=== PATIENT | female | born 1960 | race Caucasian/White ===

== ENCOUNTER 2020-06-09 11:07 | Outpatient (REF) | payer OTHER, SELFPAY ==
[2020-06-09 12:32] LABS: Vitamin D 25-OH Total 36.6 ng/mL (>30)
== END 2020-06-09 11:08 | disposition home or self-care (01) ==
LOC: HO.LAB 11:07
PROVIDERS: PCP Internal Medicine; Visit Provider Student in an Organized Health Care Education/Training Program
DX: M81.0 Age-related osteoporosis without current pathological fracture (principal)
CPT/HCPCS: 82306

== ENCOUNTER → 2020-06-26 08:33 | Outpatient (BNVA) | payer OTHER, SELFPAY | PROVIDERS: PCP Internal Medicine; Referring Provider Internal Medicine; Visit Provider Student in an Organized Health Care Education/Training Program | DX: Z76.89 Persons encountering health services in other specified circumstances (principal) ==

== ENCOUNTER → 2020-07-06 14:26 | Outpatient (BNVA) | payer OTHER, SELFPAY | PROVIDERS: Visit Provider Urology | DX: Z76.89 Persons encountering health services in other specified circumstances (principal) ==

== ENCOUNTER 2020-10-01 07:49 | Outpatient (REF) | payer BC, OTHER, SELFPAY ==
--- NOTE | 2020-10-01 07:53 | EMG_ITS ---
Bilateral tibial and peroneal tibial and peroneal motor studies were performed. Bilateral sural studies were performed and superficial peroneal studies were performed. Paraspinal muscles were tested with a needle including some limb muscles. IMPRESSION: [id number] chronic axonal sensory motor peripheral neuropathy. MD COLIN Johnson/OMAR / [id number]
== END 2020-10-01 07:50 | disposition home or self-care (01) ==
LOC: HO.NEURO 07:49
PROVIDERS: Visit Provider Internal Medicine
DX: G62.9 Polyneuropathy, unspecified (principal)
CPT/HCPCS: 95861; 95886; 95911

== ENCOUNTER 2020-10-12 06:07 | Outpatient (REF) | payer BC, OTHER, SELFPAY ==
[2020-10-12 07:21] LABS: MANUAL DIFF FLAG NO
[2020-10-12 07:30] LABS: Basophils Absolute Auto 0.1 X10*3/uL (0.0-0.2); Basophils Percent Auto 0.9 % (0-2); Eosinophils Absolute Auto 0.4 X10*3/uL (0.0-0.4); Eosinophils Percent Auto 7.3 % (0-4); Hematocrit 47.3 % (37-47); Hemoglobin 15.6 g/dl (12.0-16.0); Imm Gran Abs Auto 0.02 X10*3/uL (0.00-0.03); Imm Gran Pct Auto 0.4 % (0.0-0.4); Lymphocytes Absolute Auto 1.8 X10*3/uL (1.2-4.9); Lymphocytes Percent Auto 33.5 % (20-40); Mean Corpuscular Hemoglobin 29.9 pg (27.0-33.0); Mean Corpuscular Volume 90.8 fL (80-98); Mean Platelet Volume 10.3 fL (9.4-12.3); Monocytes Absolute Auto 0.4 X10*3/uL (0.1-1.2); Monocytes Percent Auto 7.9 % (2-11); Neutrophils Absolute Auto 2.7 X10*3/uL (2.0-8.3); Platelet Count 329 X10*3/uL (160-400); Red Blood Count 5.21 X10*6/uL (4.20-5.50); White Blood Count 5.3 X10*3/uL (4.8-10.8)
[2020-10-12 07:34] LABS: Estimated Average Glucose 97 mg/dL
[2020-10-12 07:50] LABS: Alanine Aminotransferase 25 U/L (0-31); Albumin Level 4.5 g/dL (3.5-5.0); Alkaline Phosphatase 38 U/L (39-117); Anion Gap 11 (12-20); Aspartate Amino Transferase 26 U/L (5-31); Bilirubin Total 0.7 mg/dL (0.0-1.0); Blood Urea Nitrogen 19 mg/dL (9-16); Calcium 9.2 mg/dL (8.4-10.2); Carbon Dioxide 29 mmol/L (22-29); Chloride 108 mmol/L (96-108); Cholesterol 202 mg/dL; Estimated Glomerular Filt Rate > 60; Glucose Random 83 mg/dL (60-115); HDL Cholesterol 88 mg/dL; LDL Cholesterol Calculated 105 mg/dl; Potassium 4.5 mmol/L (3.3-5.1); Sodium 143 mmol/L (135-145); Total Protein 6.9 g/dL (6.5-8.0); Triglycerides 46 mg/dL
[2020-10-12 08:07] LABS: Free T4 (Free Thyroxine) 0.75 ng/dL (0.71-1.85); Thyroid Stimulating Hormone 2.56 uIU/mL (0.32-4.0); Vitamin D 25-OH Total 33.6 ng/mL (>30)
[2020-10-12 08:17] LABS: Folate 14.2 ng/mL (> or = 4.0); Vitamin B12 753 pg/mL (200-900)
== END 2020-10-12 06:08 | disposition home or self-care (01) ==
LOC: HO.LAB 06:07
PROVIDERS: PCP Internal Medicine; Visit Provider Internal Medicine
DX: G62.9 Polyneuropathy, unspecified (principal); E78.00 Pure hypercholesterolemia, unspecified
CPT/HCPCS: 36415; 80053; 80061; 82306; 82607; 82746; 83036; 84439; 84443; 85025

== ENCOUNTER 2020-12-01 14:08 | Outpatient (REF) | payer BC, OTHER, SELFPAY ==
[2020-12-01 15:10] LABS: Alanine Aminotransferase 25 U/L (0-31); Albumin Level 4.4 g/dL (3.5-5.0); Alkaline Phosphatase 39 U/L (39-117); Anion Gap 11 (12-20); Aspartate Amino Transferase 26 U/L (5-31); Bilirubin Total 0.8 mg/dL (0.0-1.0); Blood Urea Nitrogen 17 mg/dL (9-16); Calcium 9.8 mg/dL (8.4-10.2); Carbon Dioxide 27 mmol/L (22-29); Chloride 105 mmol/L (96-108); Estimated Glomerular Filt Rate > 60; Glucose Random 80 mg/dL (60-115); Potassium 4.3 mmol/L (3.3-5.1); Sodium 139 mmol/L (135-145); Total Protein 6.7 g/dL (6.5-8.0)
[2020-12-05 13:52] LABS: Vitamin D 25-OH, D2 <4 ng/mL; Vitamin D 25-OH, D3 39 ng/mL; Vitamin D 25-OH, Total 39 ng/mL (30-100)
== END 2020-12-01 14:09 | disposition home or self-care (01) ==
LOC: HO.LAB 14:08
PROVIDERS: PCP Internal Medicine; Visit Provider Student in an Organized Health Care Education/Training Program
DX: M81.0 Age-related osteoporosis without current pathological fracture (principal)
CPT/HCPCS: 36415; 80053; 82306

== ENCOUNTER → 2020-12-08 07:44 | Outpatient (BNVA) | payer BC, OTHER, SELFPAY | PROVIDERS: Visit Provider Student in an Organized Health Care Education/Training Program ==

== ENCOUNTER 2021-02-16 08:25 | Outpatient (REF) | payer BC, OTHER, SELFPAY ==
--- NOTE | ~2021-02-16 | MM_ITS ---
EXAMINATION: BONE DENSITOMETRY CLINICAL INDICATION: Age-related osteoporosis without current pathological fracture. COMPARISON: Baseline BD dated 02/08/2019. TECHNIQUE: Using a [employer] DXA System (software version: 13.1) manufactured by [employer], dual-energy x-ray absorptiometry was performed of the lumbar spine and left hip. The images are of good technical quality. Summary results are attached. FINDINGS: AP SPINE L1-L4: Current: BMD 0.833 g/cm2, Z-score -1.4, T-score -2.9, osteoporosis, 4.9% increase from baseline (<5% change is not significant). Baseline: BMD 0.794 g/cm2. LEFT FEMUR, NECK: Current: BMD 0.607 g/cm2, Z-score -1.7, T-score -3.1, osteoporosis. Baseline: BMD 0.619 g/cm2. LEFT FEMUR, TOTAL: Current: BMD 0.747 g/cm2, Z-score -0.9, T-score -2.1, osteopenia, 2.3% increase from baseline (<5% change is not significant). Baseline: BMD 0.730 g/cm2. IDENTIFIED RISK FACTORS: Osteoporosis, hysterectomy, menopause. HISTORY OF FRACTURE: None listed. MEDICATIONS: Calcium supplements or multivitamin, vitamin D, bisphosphonate. MM/XR DEXA axial skeleton IMPRESSION: 1. DIAGNOSIS: Osteoporosis based on the lowest T-score value of -3.1 in the femoral neck applying World Health Organization criteria. 2. 10-YEAR FRACTURE RISK PREDICTION, FRAX: Major osteoporotic fracture (clinical spine, forearm, hip or shoulder) 14.8%. Hip fracture 4.6%. 3. Treatment Recommendations: NOF guidelines recommend consideration for treatment in postmenopausal women and men age 50 and older presenting with the following: -A hip or vertebral (clinical or morphometric) fracture. -T-score less than or equal to -2.5 at the femoral neck or spine after appropriate evaluation to exclude secondary causes. -Low bone mass at the hip or spine and a 10-year fracture probability by FRAX of greater than or equal to 3% for hip fracture or greater than or equal to 20% for major osteoporotic fracture based on the [place] adapted WHO algorithm. 4. Other Recommendations: All treatment decisions require clinical judgment and consideration of individual patient factors, including patient preferences, comorbidities, previous drug use, risk factors not captured in the FRAX model (e.g. frailty, falls, vitamin D deficiency, increased bone turnover, interval significant decline in bone density) and possible under or overestimation of fracture risk by FRAX. Additional medical evaluation for secondary cause of low bone mineral density may be appropriate. FUTURE SCAN RECOMMENDATION: People with diagnosed cases of osteoporosis or at high risk for fracture should have regular bone mineral density tests. For patients eligible for Medicare, routine testing is allowed once every 2 years. The testing frequency can be increased to one year for patients who have rapidly progressing disease, those who are receiving or discontinuing medical therapy to restore bone mass, or have additional risk factors.
== END 2021-02-16 08:26 | disposition home or self-care (01) ==
LOC: HO.MAMMO 08:25
PROVIDERS: Visit Provider Student in an Organized Health Care Education/Training Program
DX: M81.0 Age-related osteoporosis without current pathological fracture (principal)
CPT/HCPCS: 77080

== ENCOUNTER 2021-04-20 06:57 | Day surgery (SDC) | payer BC, OTHER, SELFPAY ==
[2021-04-14 10:43] VITALS: BMI 21.4
--- NOTE | 2021-04-16 09:42 | HO.ANESPROP2 ---
Documented by User: Viola Tyson NP 04/16/21 09:42 HPI - Anesthesia Eval Consult details Narrative: 60yo F for Colonoscopy PMFSH Active Problems Active Problems: All Active Problems (Updated 04/14/21 @ 10:46 by Lindsay Guan RN) Breast asymmetry (Acute) Peripheral neuropathy (Acute) Colon cancer screening (Acute) Annual physical exam (Acute) Recurrent UTI (Acute) Osteoporosis (Acute) Past Medical History Medical History (Updated 04/14/21 @ 10:46 by Lindsay Guan RN) COVID-19 vaccine series completed Osteoporosis Recurrent UTI Family History Family History (Updated 10/06/20 @ 10:06 by Lina Mercado MD) Father Pancreatic cancer Mother HTN (hypertension) Osteoporosis Other Cancer Surgical History Surgical History (Updated 04/14/21 @ 10:25 by Lindsay Guan RN) H/O breast biopsy H/O colonoscopy History of bunionectomy Hx of hysterectomy Social History Social History (Updated 12/08/20 @ 07:54 by Tigre Farley LPN) Alcohol intake: current Alcohol intake frequency: a few times a week Patient Tobacco Use Status: Never used Tobacco e-Cigarette/Vaping Use: Never Used Use of substances other than those prescribed or required for medical reasons: No Have you been hit, kicked, punched, or otherwise hurt by someone within the past year? If so, by whom?: No Are you DNR?: No Advance Directives: No Advance Directives Information Provided: Yes Advance Directives on File: No Recently lost weight without trying: No Eating poorly because of decreased appetite: No Nutrition Risks: No Nutritional Risk Poor oral hygiene: No Meds Allergies Allergy/AdvReac Type Severity Reaction Status Date / Time No Known Allergies Allergy Verified 12/08/20 07:55 Home Medications Medication Instructions Recorded Confirmed Last Taken Type calcium carbonate 600 mg (1,500 1 tab PO DAILY 06/26/20 04/14/21 Unknown History mg)-vitamin D3 200 unit tablet vitamin B complex (B 1 tab PO DAILY 06/26/20 04/14/21 Unknown History Complex-Vitamin B12) Exam Exam Date and Time: April 16, 2021 0942 Height,Weight and Vital Signs: Height 5 ft 6 in Weight 60.328 kg Assessment and Plan Assessment Anesthesia Assessment: Chart Reviewed Documented by User: Vinicio Lentz MD 04/20/21 07:57 PMFSH Past Medical History Medical History (Updated 04/14/21 @ 10:46 by Lindsay Guan RN) COVID-19 vaccine series completed Osteoporosis Recurrent UTI Family History Family History (Updated 10/06/20 @ 10:06 by Lina Mercado MD) Father Pancreatic cancer Mother HTN (hypertension) Osteoporosis Other Cancer Family history of problems with anesthesia: No Surgical History Surgical History (Updated 04/14/21 @ 10:25 by Lindsay Guan RN) H/O breast biopsy H/O colonoscopy History of bunionectomy Hx of hysterectomy History of Problems with Anesthesia: No Social History Social History (Updated 12/08/20 @ 07:54 by Tigre Farley LPN) Alcohol intake: current Alcohol intake frequency: a few times a week Patient Tobacco Use Status: Never used Tobacco e-Cigarette/Vaping Use: Never Used Use of substances other than those prescribed or required for medical reasons: No Have you been hit, kicked, punched, or otherwise hurt by someone within the past year? If so, by whom?: No Are you DNR?: No Advance Directives: No Advance Directives Information Provided: Yes Advance Directives on File: No Recently lost weight without trying: No Eating poorly because of decreased appetite: No Nutrition Risks: No Nutritional Risk Poor oral hygiene: No Meds Allergies Allergy/AdvReac Type Severity Reaction Status Date / Time No Known Allergies Allergy Verified 12/08/20 07:55 Home Medications Medication Instructions Recorded Confirmed Last Taken Type calcium carbonate 600 mg (1,500 1 tab PO DAILY 06/26/20 04/14/21 Unknown History mg)-vitamin D3 200 unit tablet vitamin B complex (B 1 tab PO DAILY 06/26/20 04/14/21 Unknown History Complex-Vitamin B12) Exam Airway Mallampati Class: II TM Dist: >3cm Neck ROM: Full Loose/Missing/Broken Teeth: No Assessment and Plan Assessment Anesthesia Assessment: Anesthesia Plan Discussed Final Anesthetic Review Family History of Problems with Anesthesia: No History of Problems with Anesthesia: No NPO: Yes ASA Class: II Final Preanesthetic Review: No Changes in Pt Med Stat, Meds/Allgs Chart Reviewed, Consent Obtained/Reviewed and Anes Risks/Benef Reviewed Patient Risk: Low Procedure Risk: Low Anesthetic Plan Anesthetic Plan: MAC: Disposition: Standard PACU
[2021-04-20 07:08] VITALS: BP 109/71; PULSE 63; RESP 16; TEMP 36.4; O2SAT 98
[2021-04-20] MEDS: Lactated Ringers 1,000 ML 100 ML IVCONT (07:25)
--- NOTE | 2021-04-20 08:15 | MHC.SHP ---
Pre-Procedural Eval Section A Date of Service: 04/20/21 The patient is an INPATIENT: No Changes since office visit: No Cold of Flu in the past 2 weeks, No New Medical Problems, No Changes in Medication and No Patient answered all questions The History & Physical has been completed within 30 days and I have reviewed it.: Yes Section B Chief Complaint: screening Allergies: Allergies Allergy/AdvReac Type Severity Reaction Status Date / Time No Known Allergies Allergy Verified 12/08/20 07:55 Plan I have reviewed the history and physical and performed a pertinent physical examination on my patient. No changes have occurred unless specified.
[2021-04-20 08:48] VITALS: BP 91/55; PULSE 79; RESP 15; TEMP 35.9; O2SAT 97
--- NOTE | 2021-04-20 08:51 | PC.NURSE ---
sitting up in bed drinking nathalie heath. denies pain and nausea.
--- NOTE | 2021-04-20 08:52 | P.BOP_ITS ---
Brief Operative Note Date of Service: 04/20/21 Pre-op diagnosis: screening Procedure: colonoscopy Surgeon: Johnny Manzo Anesthesia: MAC Was an [employer] used for this Procedure?: No Estimated blood loss (mL): 0 Pathology: none sent Condition: stable Disposition: PACU
[2021-04-20 09:01] VITALS: BP 102/70; PULSE 71; RESP 16; TEMP 36.9; O2SAT 96
--- NOTE | 2021-04-20 09:06 | OP_ITS ---
SURGEON: Johnny Manzo MD INDICATIONS: Colon cancer screening. PREOPERATIVE DIAGNOSIS: POSTOPERATIVE DIAGNOSIS: PROCEDURE PERFORMED: Colonoscopy to the terminal ileum. ESTIMATED BLOOD LOSS: COMPLICATIONS: ANESTHESIA: ASSISTANTS: SPECIMENS: MEDICATIONS: Monitored anesthesia care. DESCRIPTION OF PROCEDURE: History and physical performed. The risks and benefits of the procedure were explained to the patient. Informed consent was obtained. The patient was placed in the left lateral decubitus position. A digital rectal exam was performed and was found to be normal. The Olympus pediatric video colonoscope was introduced into the rectum and advanced to the cecum without difficulty. The cecum was identified by transillumination, palpation, and identification of ileocecal valve. Examination was performed and the scope was removed. She tolerated the procedure well and was taken to recovery area in stable condition. FINDINGS: The terminal ileum was examined and appeared normal. The visualized colonic mucosa was within normal limits without evidence of masses or ulcers. No polyps were identified. The quality of the prep was good. Retroflexed examination was normal. IMPRESSION: Normal colonoscopy. RECOMMENDATIONS: 1. Follow up as needed. 2. Repeat colonoscopy is recommended in 10 years for average risk individuals. MD EDGAR Partida/OMAR / [id number]
== END 2021-04-20 09:30 | disposition home or self-care (01) ==
PROVIDERS: PCP Internal Medicine; Visit Provider Internal Medicine Gastroenterology
PROC: 0DJD8ZZ Inspection of Lower Intestinal Tract, Via Natural or Artificial Opening Endoscopic (ICD-10-PCS; CPT 45378; principal; 2021-04-20 08:10)
DX: Z12.11 Encounter for screening for malignant neoplasm of colon (principal); M81.0 Age-related osteoporosis without current pathological fracture; Z79.899 Other long term (current) drug therapy
CPT/HCPCS: 45378

== ENCOUNTER 2021-06-10 08:12 | Outpatient (REF) | payer BC, OTHER, SELFPAY ==
[2021-06-10 09:26] LABS: Alanine Aminotransferase 32 U/L (0-31); Albumin Level 4.5 g/dL (3.5-5.0); Alkaline Phosphatase 46 U/L (39-117); Anion Gap 11 (12-20); Aspartate Amino Transferase 29 U/L (5-31); Bilirubin Total 0.8 mg/dL (0.0-1.0); Blood Urea Nitrogen 20 mg/dL (9-16); Calcium 10.8 mg/dL (8.4-10.2); Carbon Dioxide 30 mmol/L (22-29); Chloride 107 mmol/L (96-108); Estimated Glomerular Filt Rate > 60; Glucose Random 92 mg/dL (60-115); Potassium 4.8 mmol/L (3.3-5.1); Sodium 143 mmol/L (135-145); Total Protein 7.1 g/dL (6.5-8.0)
[2021-06-14 15:01] LABS: Vitamin D 25-OH, D2 <4 ng/mL; Vitamin D 25-OH, D3 34 ng/mL; Vitamin D 25-OH, Total 34 ng/mL (30-100)
== END 2021-06-10 08:13 | disposition home or self-care (01) ==
LOC: HO.LAB 08:12
PROVIDERS: PCP Internal Medicine; Visit Provider Student in an Organized Health Care Education/Training Program
DX: M81.0 Age-related osteoporosis without current pathological fracture (principal)
CPT/HCPCS: 36415; 80053; 82306

== ENCOUNTER 2021-06-15 08:44 | Outpatient (REF) | payer BC, OTHER, SELFPAY ==
[2021-06-15 16:00] LABS: Alanine Aminotransferase 29 U/L (0-31); Albumin Level 4.3 g/dL (3.5-5.0); Alkaline Phosphatase 41 U/L (39-117); Anion Gap 12 (12-20); Aspartate Amino Transferase 28 U/L (5-31); Bilirubin Total 0.7 mg/dL (0.0-1.0); Blood Urea Nitrogen 16 mg/dL (9-16); Calcium 9.8 mg/dL (8.4-10.2); Carbon Dioxide 25 mmol/L (22-29); Chloride 107 mmol/L (96-108); Estimated Glomerular Filt Rate > 60; Glucose Random 87 mg/dL (60-115); Potassium 4.3 mmol/L (3.3-5.1); Sodium 140 mmol/L (135-145); Total Protein 6.8 g/dL (6.5-8.0)
[2021-06-16 16:16] LABS: Calcium (PTHI) 9.8 mg/dL (8.6-10.4); PTHI 34 pg/mL (14-64)
== END 2021-06-15 08:45 | disposition home or self-care (01) ==
LOC: HO.LAB 08:44
PROVIDERS: PCP Internal Medicine; Visit Provider Nurse Practitioner Family
DX: M81.0 Age-related osteoporosis without current pathological fracture (principal); E83.52 Hypercalcemia; G62.9 Polyneuropathy, unspecified; M54.50 Low back pain, unspecified; M79.606 Pain in leg, unspecified; Z79.899 Other long term (current) drug therapy; G89.29 Other chronic pain
CPT/HCPCS: 36415; 80053; 83970

== ENCOUNTER 2021-08-09 10:15 | Outpatient (REF) | payer BC, OTHER, SELFPAY ==
--- NOTE | ~2021-08-09 | XR_ITS ---
EXAMINATION: XR LUMBOSACRAL SPINE CLINICAL INFORMATION: Low back pain. COMPARISON: Sacrococcygeal spine done on 08/13/2019. TECHNIQUE: Three views of the lumbosacral spine. FINDINGS: As was documented on the prior study, there is a transitional lumbar vertebrae present showing evidence of partial sacralization. The heights of the lumbar vertebrae are well-maintained. Intervertebral disc heights are well-maintained. The posterior appendages are intact. The paraspinal soft tissues are unremarkable. XR/XR lumbar spine 2-3V IMPRESSION: Transitional lumbar vertebrae showing evidence of partial sacralization, appears similar to prior study dated 10/28/2019.
== END 2021-08-09 10:16 | disposition home or self-care (01) ==
LOC: HO.XRAY 10:15
PROVIDERS: PCP Internal Medicine; Visit Provider Nurse Practitioner Family
DX: M54.50 Low back pain, unspecified (principal); G89.29 Other chronic pain
CPT/HCPCS: 72100

== ENCOUNTER → 2021-08-11 08:53 | Outpatient (BNVA) | payer OTHER, SELFPAY | PROVIDERS: PCP Internal Medicine; Visit Provider Nurse Practitioner Family ==

== ENCOUNTER → 2021-08-27 15:14 | Outpatient (BNVA) | payer OTHER, SELFPAY | PROVIDERS: PCP Internal Medicine; Visit Provider Nurse Practitioner Family ==

== ENCOUNTER 2021-09-07 18:45 | Outpatient (REF) | payer OTHER, SELFPAY ==
--- NOTE | ~2021-09-07 | MR_ITS ---
EXAMINATION: MR LUMBAR SPINE WITHOUT CONTRAST CLINICAL INFORMATION: Spondylosis with radiculopathy. Lower back pain. Bilateral leg pain/numbness. COMPARISON: Lumbar spine radiographs from 08/09/2021. Lumbar spine MRI from 04/25/2011. TECHNIQUE: MRI of the lumbar spine was obtained using routine sequences without contrast. FINDINGS: Transitional vertebral anatomy. There is left-sided hemisacralization of L5 with pseudoarticulation of the left transverse process with the sacral luzmaria. Mild degenerative retrolisthesis of L4 on L5. Otherwise, normal anatomic alignment. Moderate degenerative disc disease at L4-L5 and L5-S1. Mild degenerative disc disease at all additional lumbar levels. Associated mild mixed Modic type discogenic endplate changes. No suspicious marrow edema. The vertebral body heights are largely maintained.. The conus medullaris terminates at the level of L1. The distal spinal cord is normal in appearance. No significant abnormalities of the paraspinal musculature. Limited evaluation of the intra-abdominal structures without significant abnormalities. The abdominal aorta is of normal contour and caliber. AXIAL SPINAL LEVELS: T12-L1: Normal annular contour. There is no facet joint arthropathy. There is no neural foraminal stenosis. There is no spinal canal stenosis. L1-L2: Normal annular contour. There is mild left and no right facet joint arthropathy. There is no neural foraminal stenosis. There is no spinal canal stenosis. L2-L3: Shallow diffuse disc bulge eccentric to the left. There is mild left and no right facet joint arthropathy. There is no neural foraminal stenosis. There is no spinal canal stenosis. L3-L4: Mild diffuse disc bulge. There is moderate right and mild left facet joint arthropathy. There is mild bilateral neural foraminal stenosis. There is mild narrowing of the subarticular zones with no overt spinal canal stenosis centrally. L4-L5: Mild diffuse disc bulge with superimposed shallow central disc protrusion. There is moderate left and mild right facet joint arthropathy. There is mild bilateral neural foraminal stenosis. There is mild narrowing of the subarticular zones with no overt spinal canal stenosis centrally. L5-S1: Normal annular contour. There is mild bilateral facet joint arthropathy. There is no neural foraminal stenosis. There is no spinal canal stenosis. MR/MR lumbar spine wo con IMPRESSION: Transitional vertebral anatomy. 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 Mild to moderate multilevel degenerative spondyloarthropathy of the lumbar spine as described in detail above. Most notably, there are mild narrowings of the subarticular zones and neural foraminal stenoses at L3-L4 and L4-L5. No overt spinal canal stenosis or nerve root compression.
== END 2021-09-07 18:46 | disposition home or self-care (01) ==
LOC: HO.MRI 18:45
PROVIDERS: Visit Provider Nurse Practitioner Family
DX: M47.27 Other spondylosis with radiculopathy, lumbosacral region (principal)
CPT/HCPCS: 72148

== ENCOUNTER → 2021-09-14 14:10 | Outpatient (BNVA) | payer OTHER, SELFPAY | PROVIDERS: PCP Internal Medicine; Visit Provider Nurse Practitioner Family ==

== ENCOUNTER 2021-11-10 06:00 | Outpatient (REF) | payer OTHER, SELFPAY ==
--- NOTE | ~2021-11-10 | FL_ITS ---
EXAMINATION: XR FLUOROSCOPY WITH IMAGES CLINICAL INFORMATION: Spondylosis without radiculopathy. COMPARISON: MRI of 09/07/2021. TECHNIQUE: Fluoroscopy performed by Dr. Vinicio Lentz. FLUOROSCOPY TIME: 0.3 minutes. DAP: 0.979 Gycm2 IMAGES: 3 FINDINGS: Three C-arm images taken intraoperatively demonstrate needles and contrast overlying the L3-L4, L4-L5, and L5-S1 facet joints. FL/FL guidance in treatment room IMPRESSION: Bilateral injections at L3 through S1.
== END 2021-11-10 06:01 | disposition home or self-care (01) ==
LOC: HO.RADIR 06:00
PROVIDERS: Visit Provider Internal Medicine
DX: M47.27 Other spondylosis with radiculopathy, lumbosacral region (principal)
CPT/HCPCS: 64493; 64494; J2795; Q9967

== ENCOUNTER → 2021-11-12 15:04 | Outpatient (BNVA) | payer OTHER, SELFPAY | PROVIDERS: PCP Internal Medicine; Visit Provider Nurse Practitioner Family | DX: M47.27 Other spondylosis with radiculopathy, lumbosacral region (principal) ==

== ENCOUNTER → 2021-12-13 14:38 | Outpatient (BNVA) | payer OTHER, SELFPAY | PROVIDERS: PCP Internal Medicine; Visit Provider Internal Medicine | DX: Z13.89 Encounter for screening for other disorder (principal) ==

== ENCOUNTER → 2021-12-14 09:49 | Outpatient (BNVA) | payer OTHER, SELFPAY | PROVIDERS: PCP Internal Medicine; Visit Provider Nurse Practitioner Family ==

== ENCOUNTER 2022-01-04 10:52 | Outpatient (REF) | payer OTHER, SELFPAY ==
[2022-01-04 12:02] LABS: Alanine Aminotransferase 24 U/L (0-31); Albumin Level 4.3 g/dL (3.5-5.0); Alkaline Phosphatase 38 U/L (39-117); Anion Gap 10 (12-20); Aspartate Amino Transferase 25 U/L (5-31); Bilirubin Total 0.8 mg/dL (0.0-1.0); Blood Urea Nitrogen 18 mg/dL (9-16); Calcium 9.9 mg/dL (8.4-10.2); Carbon Dioxide 28 mmol/L (22-29); Chloride 107 mmol/L (96-108); Estimated Glomerular Filt Rate > 60; Glucose Random 85 mg/dL (60-115); Potassium 4.3 mmol/L (3.3-5.1); Sodium 141 mmol/L (135-145); Total Protein 6.6 g/dL (6.5-8.0)
[2022-01-04 12:28] LABS: Vitamin D 25-OH Total 39.8 ng/mL (>30)
== END 2022-01-04 10:53 | disposition home or self-care (01) ==
LOC: HO.LAB 10:52
PROVIDERS: PCP Internal Medicine; Visit Provider Nurse Practitioner Family
DX: M81.0 Age-related osteoporosis without current pathological fracture (principal)
CPT/HCPCS: 36415; 80053; 82306

== ENCOUNTER → 2022-07-18 10:55 | Outpatient (BNVA) | payer OTHER, SELFPAY | PROVIDERS: PCP Internal Medicine; Visit Provider Internal Medicine | DX: Z13.89 Encounter for screening for other disorder (principal) ==

== ENCOUNTER 2022-07-25 11:04 | Outpatient (REF) | payer OTHER, SELFPAY ==
[2022-07-25 12:49] LABS: Alanine Aminotransferase 21 U/L (0-31); Albumin Level 4.1 g/dL (3.5-5.0); Alkaline Phosphatase 37 U/L (39-117); Anion Gap 10 (12-20); Aspartate Amino Transferase 24 U/L (5-31); Bilirubin Total 0.8 mg/dL (0.0-1.0); Blood Urea Nitrogen 17 mg/dL (9-16); Calcium 9.2 mg/dL (8.4-10.2); Carbon Dioxide 27 mmol/L (22-29); Chloride 106 mmol/L (96-108); Estimated Glomerular Filt Rate > 60; Glucose Random 82 mg/dL (60-115); Sodium 139 mmol/L (135-145); Total Protein 6.4 g/dL (6.5-8.0)
[2022-07-25 13:06] LABS: Vitamin D 25-OH Total 34.1 ng/mL (>30)
== END 2022-07-25 11:05 | disposition home or self-care (01) ==
LOC: HO.LAB 11:04
PROVIDERS: PCP Internal Medicine; Visit Provider Nurse Practitioner Family
DX: M81.0 Age-related osteoporosis without current pathological fracture (principal)
CPT/HCPCS: 36415; 80053; 82306

== ENCOUNTER 2022-10-05 07:28 | Outpatient (REF) | payer OTHER, SELFPAY ==
[2022-10-05 07:35] LABS: MANUAL DIFF FLAG NO
[2022-10-05 07:49] LABS: Appearance Urine Clear; Color Urine Yellow; Glucose Urine UA Negative (Negative); Leukocyte Esterase Urine Trace (Negative); Nitrite Urine Negative (Negative); Specific Gravity - Urine 1.015 (1.005-1.025); UMIC TRIGGER UACC YES; Urine Blood Negative (Negative); Urine Ketones Negative (Negative); Urine Protein Negative (Neg-Trace)
[2022-10-05 07:55] LABS: Bacteria Urine None Seen (None Seen); Hyaline Casts Urine 0-2 /LPF (0-2); Squamous Epithelial Cell Urine 0-2 /HPF (0-2); WBC Urine 0-5 /HPF (0-5)
[2022-10-05 08:19] LABS: Basophils Percent Auto 0.7 % (0-2); Eosinophils Absolute Auto 0.2 X10*3/uL (0.0-0.4); Eosinophils Percent Auto 4.1 % (0-4); Hematocrit 46.9 % (37.0-47.0); Hemoglobin 15.4 g/dl (12.0-16.0); Imm Gran Abs Auto 0.02 X10*3/uL (0.00-0.03); Imm Gran Pct Auto 0.4 % (0.0-0.4); Lymphocytes Absolute Auto 1.8 X10*3/uL (1.2-4.9); Lymphocytes Percent Auto 31.4 % (20-40); Mean Corpuscular HGB Conc 32.8 g/dl (31.0-35.0); Mean Corpuscular Hemoglobin 29.8 pg (27.0-33.0); Mean Corpuscular Volume 90.7 fL (80.0-98.0); Mean Platelet Volume 9.9 fL (9.4-12.3); Monocytes Absolute Auto 0.4 X10*3/uL (0.1-1.2); Monocytes Percent Auto 7.1 % (2-11); Neutrophils Absolute Auto 3.2 x10*3/uL (2.0-8.3); Neutrophils Percent Auto 56.3 % (45-73); Platelet Count 339 X10*3/uL (160-400); Red Blood Count 5.17 X10*6/uL (4.20-5.50); Red Cell Distribution Width 14.6 % (11.0-16.0); White Blood Count 5.6 X10*3/uL (4.8-10.8)
[2022-10-05 08:42] LABS: Alanine Aminotransferase 17 U/L (0-31); Albumin Level 4.3 g/dL (3.5-5.0); Alkaline Phosphatase 41 U/L (39-117); Anion Gap 10 (12-20); Aspartate Amino Transferase 20 U/L (5-31); Bilirubin Total 0.9 mg/dL (0.0-1.0); Blood Urea Nitrogen 14 mg/dL (9-16); Calcium 9.5 mg/dL (8.4-10.2); Carbon Dioxide 30 mmol/L (22-29); Chloride 109 mmol/L (96-108); Cholesterol 223 mg/dL; Estimated Glomerular Filt Rate > 60; Glucose Random 94 mg/dL (60-115); HDL Cholesterol 77 mg/dL; LDL Cholesterol Calculated 135 mg/dl; Potassium 4.1 mmol/L (3.3-5.1); Sodium 145 mmol/L (135-145); Total Protein 6.5 g/dL (6.5-8.0); Triglycerides 55 mg/dL
[2022-10-05 09:02] LABS: Free T4 (Free Thyroxine) 0.83 ng/dL (0.71-1.85); Thyroid Stimulating Hormone 2.32 uIU/mL (0.32-4.0); Vitamin B12 530 pg/mL (200-900); Vitamin D 25-OH Total 41.7 ng/mL (>30)
== END 2022-10-05 07:29 | disposition home or self-care (01) ==
LOC: HO.LAB 07:28
PROVIDERS: PCP Internal Medicine; Visit Provider Internal Medicine
DX: E78.00 Pure hypercholesterolemia, unspecified (principal); M81.0 Age-related osteoporosis without current pathological fracture
CPT/HCPCS: 36415; 80053; 80061; 81001; 82306; 82607; 82746; 84439; 84443; 85025

== ENCOUNTER → 2022-11-15 13:38 | Outpatient (BNVA) | payer OTHER, SELFPAY | PROVIDERS: PCP Internal Medicine; Visit Provider Physician Assistant ==

== ENCOUNTER 2022-11-28 10:00 | Outpatient (RCR) | payer OTHER, SELFPAY ==
--- NOTE | 2022-10-17 12:48 | MHC.PT.EP ---
[facility] [place] Office [place] Office [place] Office [address] Carina Bermudez [address] [place] [address] [phone] F: [phone] F: [phone] F: [phone] F: [phone] Physical Therapy Plan of Care Date of Evaluation: Date of Surgery: Diagnosis: lumbar spine spondylosis left hemisacralization of L5 (seen on imaging) Assessment: Patient is a 62 y.o. female who is referred to PT by Dr. Lina Mercado MD, with Dx of lumbar spondylosis. Pt MRI reveals There is left hemisacralization of L5 which may be contributing to source of pt sxs that radiate to LEs. Patient also has osteoporosis. Patient prognosis for PT is fair due to havign already tried prior PT, injections, and pain management. Patient impairments include pain, poor postures/positioning, muscle imbalances in hip and low back. Patient current functional limitations are sitting, lying supine, bending. Patient will benefit from skilled PT to address aforementioned impairments and functional limitations to meet established goals. Frequency and Duration: The patient will be seen 2x/week for 4 weeks Short Term Goals: 2 weeks Patient demonstrates consistency and independence with HEP to self manage symptoms and demonstrate understanding of centralization versus peripheralization. Patient presents with normalized gait pattern with equal hip movements and arm swing. Usp Goals: 4 weeks Patient presents with increased bilateral hip flexion 5/5 to be able to bend/squat without sxs. Patient presents with increased bilateral hip glute med strength 5/5 to be able to sit for 30 mins without compensation. Treatment Plan: Modalities to reduce pain, spasms and effusion. Manual therapy to restore motion and function. Therapeutic exercise to improve strength and flexibility. Neuromuscular re-education for posture and balance. Therapeutic activities to return to functional activities of daily living. Electronically signed by: Regla Conrad, PT, DPT Please sign and return to therapist. Thank you for your referral.
--- NOTE | 2022-11-28 14:00 | MHC.PT.DC ---
[facility] [place] Office [place] Office [place] Office [address] Carina Bermudez [address] [phone] F: [phone] F: [phone] F: [phone] F: [phone] Physical Therapy Discharge Report Diagnosis: lumbar spine spondylosis left hemisacralization of L5 (seen on imaging) Date of Surgery: Date of Evaluation: 10/17/22 Date of Discharge: 11/28/22 Treatments to Date: 7 Cancellations to Date: No Shows to Date: Discharge Status: Independent with HEP Recommend MD Follow-up Discharge Summary: Kasandra and I discuss ceasing PT at this time as she has performed multiple interventions in PT without lasting relief to alleviate her bilateral LE symptoms. She has benefited from manual therapy massage, TENS for pain control, core stabilization exercises in supine, sitting on stability ball and standing. She is not a candidate for traction due to osteoporosis being a contraindication. I do feel she is a good candidate for a repeat MRI as she reports most recent one is 3 years ago and since them her bilateral foot sxs have become worse. She presents with full strength in ankles/feet so I feel this is just a sensory component with her nerves, not motor. She also noted that during TENS in prone the numbness/tingling in both toes reduced significantly but then returned once the TENS was turned off. She is discharged from PT at this time. Electronically signed by: Regla Conrad, PT, DPT Please sign and return to therapist. Thank you for your referral.
== END 2022-11-28 14:01 | disposition home or self-care (01) ==
LOC: HO.PT 10:00
PROVIDERS: PCP Internal Medicine; Visit Provider Internal Medicine
DX: M47.816 Spondylosis without myelopathy or radiculopathy, lumbar region (principal)
CPT/HCPCS: 97014; 97110; 97140; 97162

== ENCOUNTER → 2022-12-15 10:46 | Outpatient (BNVA) | payer OTHER, SELFPAY | PROVIDERS: PCP Internal Medicine; Visit Provider Internal Medicine Rheumatology ==

== ENCOUNTER 2023-02-21 09:54 | Outpatient (REF) | payer OTHER, SELFPAY ==
--- NOTE | ~2023-02-21 | MM_ITS ---
EXAMINATION: BONE DENSITOMETRY CLINICAL INDICATION: Age-related osteoporosis without current pathological fracture. COMPARISON: Previous BD dated 02/16/2021 and baseline BD dated 02/08/2019. TECHNIQUE: Using a [employer] [place] DXA System (software version: 13.1) manufactured by [employer], dual-energy x-ray absorptiometry was performed of the lumbar spine and left hip. The images are of good technical quality. Summary results are attached. FINDINGS: LEFT FEMUR, NECK: Current: BMD 0.633 g/cm2, Z-score -1.4, T-score -2.9, osteoporosis. Prior: BMD 0.607 g/cm2. Baseline: BMD 0.619 g/cm2. LEFT FEMUR, TOTAL: Current: BMD 0.725 g/cm2, Z-score -0.9, T-score -2.2, osteopenia, 2.9% decrease from previous, 0.7% decrease from baseline (<5% change is not significant). Prior: BMD 0.747 g/cm2. Baseline: BMD 0.730 g/cm2. AP SPINE L1-L4: Current: BMD 0.828 g/cm2, Z-score -1.2, T-score -2.9, osteoporosis, 0.6% decrease from previous, 4.3% increase from baseline (<5% change is not significant). Prior: BMD 0.833 g/cm2. Baseline: BMD 0.794 g/cm2. IDENTIFIED RISK FACTORS: Osteoporosis, menopause, hysterectomy. HISTORY OF FRACTURE: None listed. MEDICATIONS: Calcium supplements or multivitamin, vitamin D, bisphosphonate. MM/XR DEXA axial skeleton IMPRESSION: 1. DIAGNOSIS: Osteoporosis based on the lowest T-score value of -2.9 in the lumbar spine and femoral neck applying World Health Organization criteria. 2. 10-YEAR FRACTURE RISK PREDICTION, FRAX: According to the guidelines, FRAX calculation should only be performed on patients in the osteopenia bone density category. Therefore, FRAX was not performed on this patient. 3. Treatment Recommendations: NOF guidelines recommend consideration for treatment in postmenopausal women and men age 50 and older presenting with the following: -A hip or vertebral (clinical or morphometric) fracture. -T-score less than or equal to -2.5 at the femoral neck or spine after appropriate evaluation to exclude secondary causes. -Low bone mass at the hip or spine and a 10-year fracture probability by FRAX of greater than or equal to 3% for hip fracture or greater than or equal to 20% for major osteoporotic fracture based on the [place] adapted WHO algorithm. 4. Other Recommendations: All treatment decisions require clinical judgment and consideration of individual patient factors, including patient preferences, comorbidities, previous drug use, risk factors not captured in the FRAX model (e.g. frailty, falls, vitamin D deficiency, increased bone turnover, interval significant decline in bone density) and possible under or overestimation of fracture risk by FRAX. Additional medical evaluation for secondary cause of low bone mineral density may be appropriate. FUTURE SCAN RECOMMENDATION: People with diagnosed cases of osteoporosis or at high risk for fracture should have regular bone mineral density tests. For patients eligible for Medicare, routine testing is allowed once every 2 years. The testing frequency can be increased to one year for patients who have rapidly progressing disease, those who are receiving or discontinuing medical therapy to restore bone mass, or have additional risk factors.
[2023-02-21 15:45] LABS: Urine Cytology See Pathology rpt
[2023-02-21 16:00] LABS: Appearance Urine Clear; Color Urine Yellow; Glucose Urine UA Negative (Negative); Leukocyte Esterase Urine Negative (Negative); Nitrite Urine Negative (Negative); Specific Gravity - Urine 1.015 (1.005-1.025); Urine Blood Negative (Negative); Urine Ketones Negative (Negative); Urine Protein Negative (Neg-Trace)
[2023-02-21 16:05] LABS: Bacteria Urine None Seen (None Seen); Hyaline Casts Urine 0-2 /LPF (0-2); RBC Urine 0-2 /HPF (0-2); Squamous Epithelial Cell Urine 0-2 /HPF (0-2); WBC Urine 0-5 /HPF (0-5)
== END 2023-02-21 09:55 | disposition home or self-care (01) ==
LOC: HO.MAMMO 09:54
PROVIDERS: Absent Provider Internal Medicine; PCP Internal Medicine; Visit Provider Nurse Practitioner Family
DX: Z13.820 Encounter for screening for osteoporosis (principal); R31.9 Hematuria, unspecified; R30.0 Dysuria; M81.0 Age-related osteoporosis without current pathological fracture; Z78.0 Asymptomatic menopausal state
CPT/HCPCS: 77080; 81001; 81003; 88112

== ENCOUNTER → 2023-02-21 10:30 | Outpatient (BNV) | payer OTHER, SELFPAY | PROVIDERS: Absent Provider Internal Medicine; PCP Internal Medicine; Visit Provider Radiology Diagnostic Radiology | DX: M81.0 Age-related osteoporosis without current pathological fracture (principal) | CPT/HCPCS: 77080 ==

== ENCOUNTER 2023-02-21 14:22 | Outpatient (AMB) | payer OTHER, SELFPAY ==
[2023-02-21 14:27] VITALS: BP 124/70; PULSE 79; O2SAT 98; BMI 21.0
--- NOTE | 2023-02-21 14:27 | A.OFFPC_ITS ---
Vital Signs 02/21/23 14:27 Height 5 ft 6 in Weight 130 lb BMI 21.0 BP 124/70 Blood Pressure Location Lt brachial Position Sitting Pulse 79 Pulse Source Pulse Oximeter Pulse Oximetry (%) 98 Oxygen Delivery Method Room Air Intake Visit Reasons: Back pain Allergies No Known Allergies Allergy (Verified 02/21/23 14:27) Tobacco use date assessed: 09/27/22 Dental Screening Dental Screen Date: 02/21/23 Did you have a dental visit in the last 12 months?: Yes Did you have a dental problem in the last 6 months where you did not have access to dental care?: No Was dental information given to patient?: Patient has dentist HPI Back pain HPI Details 62-year-old female seen last September 2022 for physical exam having a history of osteoporosis peripheral neuropathy lumbar spine spondylosis with radiculopathy coming in for follow-up. Blood work was requested, physical therapy as well as pain management. Review of the notes had nerve conduction test done in December 2022 which revealed normal EMG of the lower extremities. Patient has seen the pain management and has been advised lumbar epidural steroid injection under fluoroscopic guidance. Patient also has seen the Rheumatology for the osteoporosis on alendronate which is started in 2019. review PSS did injection 03/2015. shot done December 2022 on review of the chart 2019 patient has had in the urinary tract infection. But on the last urinalysis there was no infection but has hematuria patient has had a KUB test last 2019 which was negative. With the hematuria will further work this up. PFSH Medical History COVID-19 vaccine series completed Osteoporosis Recurrent UTI Surgical History H/O breast biopsy H/O colonoscopy History of bunionectomy History of operative procedure on lumbosacral spinal structure Hx of hysterectomy Family History (Updated 02/21/23 @ 14:28 by Luanne Ryan CMA) Father Pancreatic cancer Mother HTN (hypertension) Osteoporosis Other Cancer Social History Housing: House Alcohol intake: current Alcohol intake frequency: a few times a week Alcohol type: wine Patient Tobacco Use Status: Never used Tobacco e-Cigarette/Vaping Use: Never Used service: No Current occupational status: retired Cognitive needs: No Hearing needs: No Vision needs: Yes Questionnaire PHQ-9 Over the last 2 weeks, how often have you been bothered by any of the following problems? 1. Little interest or pleasure in doing things: not at all 2. Feeling down, depressed, or hopeless: not at all 3. Trouble falling or staying asleep, or sleeping too much: not at all 4. Feeling tired or having little energy: not at all 5. Poor appetite or overeating: not at all 6. Feeling bad about yourself - or that you are a failure or have let yourself or your family down: not at all 7. Trouble concentrating on things, such as reading the newspaper or watching television: not at all 8. Moving or speaking so slowly that other people could have noticed. Or the opposite - being so fidgety or restless that you have been moving around a lot more than usual: not at all 9. Thoughts that you would be better off or of hurting yourself in some way: not at all Total score: 0 Depression Screening Interpretation: Negative Source: Developed by Drs. Tim John, Ellen Peacock, Jose Espino and colleagues, with an educational ibis from [employer]. Thrive Questionnaire Date Thrive assessed: 02/21/23 I am a: Patient What is your living situation today?: I have a steady place to live Within the past 12 months, did the food you bought not last and you didn't have the money to get more?: Never true Within the past 12 months, did you worry whether your food would run out before you got money to buy more?: Never true Do you have trouble paying for medicines?: No Do you have trouble getting transportation to medical appointments?: No Do you have trouble paying your heating and electricity bill?: No Do you have trouble taking care of your child, family member or friend?: No Do you have trouble with day-to-day activities such as bathing, preparing meals, shopping, managing finances, etc.?: No Are you currently unemployed and looking for a job?: No Are you interested in more education?: No Currently or been in a relationship where the following occur: no concerns reported AUDIT C Alcohol Use Questionnaire (AUDIT-C) 1. How often do you have a drink containing alcohol?: 2-3 times a week 2. How many drinks containing alcohol do you have on a typical day when you are drinking?: 1 or 2 3. How often do you have six or more drinks on one occasion?: Never Total Score: 3 NANETTE-7 AMB Questionnaire NANETTE-7 Date NANETTE - 7 assessed: 02/21/23 Feeling nervous, anxious, or on edge: 0 = Not at all Not being able to stop or control worryin = Not at all Worrying too much about different things: 0 = Not at all Trouble relaxin = Not at all Being so restless that it is hard to sit still: 0 = Not at all Becoming easily annoyed or irritable: 0 = Not at all Feeling afraid as if something awful might happen: 0 = Not at all Total NANETTE-7 score (0-4 normal; 5-9 mild; 10-14 moderate; 15-21 severe): 0 Source: Developed by Drs. Tim John, Ellen Peacock, Jose Espino and colleagues, with an educational ibis from [employer]. Physical exam (Primary Care) Vital Signs: Last Vital Signs Pulse 79 02/21/23 14:27 BP 124/70 02/21/23 14:27 Pulse Ox 98 02/21/23 14:27 Oxygen Delivery Method Room Air 02/21/23 14:27 BMI result Body Mass Index 21.0 Tobacco/Smoking Status: Tobacco use Status Tobacco use date assessed 09/27/22 02/21/23 14:35 Patient Tobacco Use Status Never used Tobacco 02/21/23 14:35 e-Cigarette/Vaping Use Never Used 02/21/23 14:35 PHQ-9: PHQ-9 Score PHQ-9: Total score 0 02/21/23 14:35 Depression Screening Interpretation: Negative Thrive Assessment: Date of Thrive Assessment Date Thrive assessed 02/21/23 02/21/23 14:35 Currently or been in a relationship where the following occur: no concerns reported Const General: alert; No acute distress Eyes Conjunctivae: conjunctivae normal Resp Auscultation: clear to auscultation bilaterally Cardio Rate: regular rate Rhythm: regular rhythm GI Inspection: Yes normal to inspection Extrem General: Yes normal to inspection and No edema Assessment and Plan Assessment & Plan (1) Spondylosis of lumbosacral spine with radiculopathy: Code(s): M47.27 - Other spondylosis with radiculopathy, lumbosacral region Plan: Patient was seen by the pain management and planned epidural injection (2) Peripheral neuropathy: Comment: September 2020 [id number] chronic axonal sensory motor peripheral neuropathy. NCV Code(s): G62.9 - Polyneuropathy, unspecified Plan: Nerve conduction test done recently reveals negative results December 2022 (3) Osteoporosis: Comment: Alendronate: February 2019- present Code(s): M81.0 - Age-related osteoporosis without current pathological fracture Qualifiers: Osteoporosis type: age-related Presence of current pathological fracture: without current pathological fracture Qualified Code(s): M81.0 - Age- related osteoporosis without current pathological fracture Plan: Patient on alendronate and will follow-up with bone density which was done recently results pending (4) Hematuria: Code(s): R31.9 - Hematuria, unspecified Plan: Advised to follow-up with hematuria with CT scan as well as cytology Orders: Orders CT abdomen pelvis wo IV con Today R31.9 - Hematuria, unspecified UA w Microscopic Today R31.9 - Hematuria, unspecified Urine Cytology Today R31.9 - Hematuria, unspecified Coding Level of Care Code Est Pt Level 4 (90763) Diagnoses Spondylosis of lumbosacral spine with radiculopathy M47.27 Peripheral neuropathy G62.9 Osteoporosis M81.0 Osteoporosis type: age-related Presence of current pathological fracture: without current pathological fracture Hematuria R31.9
== END 2023-02-21 15:19 | disposition home or self-care (01) ==
PROVIDERS: PCP Internal Medicine; Visit Provider Internal Medicine
DX: M47.27 Other spondylosis with radiculopathy, lumbosacral region (principal); G62.9 Polyneuropathy, unspecified; M81.0 Age-related osteoporosis without current pathological fracture; R31.9 Hematuria, unspecified
CPT/HCPCS: 99214

== ENCOUNTER 2023-10-03 08:46 | Outpatient (AMB) | payer OTHER, SELFPAY ==
[2023-10-03 08:48] VITALS: BP 108/64; PULSE 77; O2SAT 98; BMI 21.8
--- NOTE | 2023-10-03 08:48 | MHC.PC.OV ---
Vital Signs 10/03/23 08:48 Height 5 ft 6 in Weight 135 lb BMI 21.8 BP 108/64 Blood Pressure Location Lt brachial Position Sitting Pulse 77 Pulse Source Pulse Oximeter Pulse Oximetry (%) 98 Oxygen Delivery Method Room Air Intake Visit Reasons: Annual Exam Intake Note: Patient is here today for a physical. Allergies No Known Allergies Allergy (Verified 10/03/23 08:48) Medication List - Last Reconciled 10/03/23 by Lina Mercado MD alendronate 70 mg PO QWEEK calcium carbonate-vitamin D3 600 mg-5 mcg (200 unit) 1 tab PO DAILY vitamin B complex (B Complex-Vitamin B12 tablet) 1 tab PO DAILY vitamins A,C,G-fohg-yqoyrj 4,296 mcg-226 mg-90 mg (PreserVision AREDS) 1 cap PO BID Tobacco use date assessed: 10/03/23 Fall risk assessment: No Falls in past year Last assessed Fall Risk: 10/03/23 Dental Screening Dental Screen Date: 10/03/23 Did you have a dental visit in the last 12 months?: Yes Did you have a dental problem in the last 6 months where you did not have access to dental care?: No Was dental information given to patient?: Patient has dentist HPI Annual Exam HPI Details 63-year-old female with a history of osteoporosis lumbar radiculopathy coming in for physical exam last seen in February 2023. Patient's mammogram is due bone density is up-to-date colonoscopy is up-to-date. Patient follows up with pain management MRI showing mild to moderate multilevel lumbar degenerative changes with spondyloarthropathy mild neural foraminal stenosis L3-L4 and L4-L5 had caudal epidural steroid injection no pain benefit placed on gabapentin 100 mg at night PFSH Medical History COVID-19 vaccine series completed Osteoporosis Recurrent UTI Surgical History H/O breast biopsy H/O colonoscopy History of bunionectomy History of operative procedure on lumbosacral spinal structure Hx of hysterectomy Family History (Updated 10/03/23 @ 09:14 by Lina Mercado MD) Father Pancreatic cancer Mother HTN (hypertension) Osteoporosis Sister Parkinson disease Other Cancer Social History (Updated 10/03/23 @ 09:14 by Lina Mercado MD) Housing: House Alcohol intake: current Alcohol intake frequency: a few times a week Alcohol type: wine Comment: glass 2-3 s a week Patient Tobacco Use Status: Never used Tobacco e-Cigarette/Vaping Use: Never Used service: No Current occupational status: retired Cognitive needs: No Hearing needs: No Vision needs: Yes Questionnaire PHQ-9 Over the last 2 weeks, how often have you been bothered by any of the following problems? 1. Little interest or pleasure in doing things: not at all 2. Feeling down, depressed, or hopeless: not at all 3. Trouble falling or staying asleep, or sleeping too much: not at all 4. Feeling tired or having little energy: not at all 5. Poor appetite or overeating: not at all 6. Feeling bad about yourself - or that you are a failure or have let yourself or your family down: not at all 7. Trouble concentrating on things, such as reading the newspaper or watching television: not at all 8. Moving or speaking so slowly that other people could have noticed. Or the opposite - being so fidgety or restless that you have been moving around a lot more than usual: not at all 9. Thoughts that you would be better off or of hurting yourself in some way: not at all Total score: 0 Depression Screening Interpretation: Negative Depression Screening Done: Yes Source: Developed by Drs. Tim John, Ellen Peacock, Jose Espino and colleagues, with an educational ibis from [employer]. Thrive Questionnaire Date Thrive assessed: 10/03/23 I am a: Patient What is your living situation today?: I have a steady place to live Within the past 12 months, did the food you bought not last and you didn't have the money to get more?: Never true Within the past 12 months, did you worry whether your food would run out before you got money to buy more?: Never true Do you have trouble paying for medicines?: No Do you have trouble getting transportation to medical appointments?: No Do you have trouble paying your heating and electricity bill?: No Do you have trouble taking care of your child, family member or friend?: No Do you have trouble with day-to-day activities such as bathing, preparing meals, shopping, managing finances, etc.?: No Are you currently unemployed and looking for a job?: No Are you interested in more education?: No Please select the resources that you would like help with: None Currently or been in a relationship where the following occur: no concerns reported THRIVE Score: 0 AUDIT C Alcohol Use Questionnaire (AUDIT-C) 1. How often do you have a drink containing alcohol?: 2-3 times a week 2. How many drinks containing alcohol do you have on a typical day when you are drinking?: 1 or 2 3. How often do you have six or more drinks on one occasion?: Never Total Score: 3 NANETTE-7 AMB Questionnaire NANETTE-7 Date NANETTE - 7 assessed: 10/03/23 Feeling nervous, anxious, or on edge: 0 = Not at all Not being able to stop or control worryin = Not at all Worrying too much about different things: 0 = Not at all Trouble relaxin = Not at all Being so restless that it is hard to sit still: 0 = Not at all Becoming easily annoyed or irritable: 0 = Not at all Feeling afraid as if something awful might happen: 0 = Not at all Total NANETTE-7 score (0-4 normal; 5-9 mild; 10-14 moderate; 15-21 severe): 0 Source: Developed by Drs. Tim John, Ellen Peacock, Jose Espino and colleagues, with an educational ibis from [employer]. Review of Systems Const Denies poor appetite and Denies weakness Eyes Denies no additional complaints ENT Reports Normal hearing present, Denies dizziness, Denies nasal congestion, Denies tinnitus and Denies sore throat Card Denies chest pain, Denies syncope, Denies rapid heart rate and Denies dyspnea Resp Denies cough and Denies dyspnea GI Denies change in stool character, Reports constipation, Denies diarrhea, Denies nausea and Denies vomiting Denies urinary frequency, Denies difficulty voiding and Denies dysuria Neuro Reports Normal hearing present, Denies confusion, Denies dizziness, Denies syncope and Denies weakness Psych Denies confusion Physical exam (Primary Care) Vital Signs: Last Vital Signs Pulse 77 10/03/23 08:48 BP 108/64 10/03/23 08:48 Pulse Ox 98 10/03/23 08:48 Oxygen Delivery Method Room Air 10/03/23 08:48 BMI result Body Mass Index 21.8 Tobacco/Smoking Status: Tobacco use Status Tobacco use date assessed 10/03/23 10/03/23 08:49 Patient Tobacco Use Status Never used Tobacco 10/03/23 09:14 e-Cigarette/Vaping Use Never Used 10/03/23 09:14 PHQ-9: PHQ-9 Score PHQ-9: Total score 0 10/03/23 09:07 Depression Screening Interpretation: Negative Thrive Assessment: Date of Thrive Assessment Date Thrive assessed 10/03/23 10/03/23 08:49 Currently or been in a relationship where the following occur: no concerns reported Const General: No confusion Orientation/consciousness: No confusion HENMT Head: Yes normocephalic Ears: external ears normal and TM's normal bilaterally Face and sinus: Yes normal facial exam Mouth: moist mucous membranes Throat: Yes tonsils normal Eyes Conjunctivae: conjunctivae normal Pupils: Equal, round and reactive pupils present and Pupil accommodation reflex normal Direct Ophthalmoscopy: normal light reflex Neck Neck: No lymphadenopathy Thyroid: Thyroid normal Chest Chest palpation & inspection: normal inspection of the chest Resp Effort & Inspection: normal respiratory effort and no audible wheezes Auscultation: clear to auscultation bilaterally, no crackles, no wheezes and lung sounds not diminished Cardio Rate: regular rate Rhythm: regular rhythm Peripheral pulses: radial pulses present and dorsalis pedis present GI Other: Patient follows up with Gynecology. Palpation (GI): no masses Auscultation: normal bowel sounds and normoactive bowel sounds Rectal Exam - Female: deferred Skin General skin exam: no rashes or lesions noted Rashes: no rashes Neuro General: No confusion Cranial nerves: Yes Equal, round and reactive pupils present and Yes Normal hearing present Cognition (Neuro): normal cognition Gait exam (Neuro): Normal gait present Motor exam (neuro): 5/5 motor strength present throughout Deep tendon reflexes (DTR's): Right brachioradialis reflex intensity grade: 2+, Left brachioradialis reflex intensity grade: 2+, Right patellar reflex intensity grade: 2+ and Left patellar reflex intensity grade: 2+ Extrem General: No edema Immunizations tetanus-diphtheria toxoids-Td 2 Lf unit-2 Lf unit/0.5 mL IM suspension Performing Provider: Lina Mercado MD [facility] Administered by: INA Henry on 10/03/23 09:28 Dose Route Admin Location Dispensed Lot Number Expiration Date NDC [employer] 0.5 mL IM Left Deltoid 0.5 mL [id number] 08/19/24 [id number] [employer] VIS Given Date VIS Provided VIS Publication Date 10/03/23 Single Vaccine 21 Eligibility Eligibility Date Funding Source Not [facility] Eligible 10/03/23 State funds Assessment and Plan Assessment & Plan (1) Annual physical exam: Code(s): Z00.00 - Encounter for general adult medical examination without abnormal findings (2) Osteoporosis: Comment: Alendronate: February 2019- present Code(s): M81.0 - Age-related osteoporosis without current pathological fracture Qualifiers: Osteoporosis type: age-related Presence of current pathological fracture: without current pathological fracture Qualified Code(s): M81.0 - Age-related osteoporosis without current pathological fracture Plan: Continue with alendronate as well as calcium and vitamin-D up-to-date with bone density. (3) Spondylosis of lumbosacral spine with radiculopathy: Code(s): M47.27 - Other spondylosis with radiculopathy, lumbosacral region Plan: Patient works with pain management presently on gabapentin but patient declined. Patient has had multiple EMGs and nerve conduction test revealing negative results with advised to stop doing this. As for the back pain this is chronic and it is more supportive treatment. (4) Hematuria: Code(s): R31.9 - Hematuria, unspecified Plan: Repeated call for CT scan. Will continue to monitor for now (5) Hypercholesterolemia: Code(s): E78.00 - Pure hypercholesterolemia, unspecified Plan: Avoid fried foods, chicken skin, eggs, butter margarine, pastries and meat. Be it pork or beef they have a lot of cholesterol LDL goal of less than 130 and triglyceride of less than 150. Orders: Orders Td State Immunization Today Z23 - Encounter for immunization Coding Level of Care Code Est Pt Prev Care 40-64y(93772) Diagnoses Annual physical exam Z00.00 Age-related osteoporosis without current pathological fracture M81.0 Osteoporosis type: age-related Presence of current pathological fracture: without current pathological fracture Spondylosis of lumbosacral spine with radiculopathy M47.27 Hematuria R31.9 Hypercholesterolemia E78.00
== END 2023-10-03 10:07 | disposition home or self-care (01) ==
PROVIDERS: Visit Provider Internal Medicine
DX: Z23 Encounter for immunization (principal); Z00.00 Encounter for general adult medical examination without abnormal findings; M81.0 Age-related osteoporosis without current pathological fracture; M47.27 Other spondylosis with radiculopathy, lumbosacral region; R31.9 Hematuria, unspecified; E78.00 Pure hypercholesterolemia, unspecified
CPT/HCPCS: 90471; 90714; 99396

== ENCOUNTER 2023-11-23 12:56 | Outpatient (AMB) | payer OTHER, SELFPAY ==
[2023-11-23 13:04] VITALS: BP 106/68; PULSE 74; O2SAT 94; BMI 21.8
--- NOTE | 2023-11-23 13:04 | A.OFFVIS_ITS ---
Vital Signs 11/23/23 13:04 Height 5 ft 6 in Weight 135 lb 5.821 oz BMI 21.8 BP 106/68 Blood Pressure Location Rt brachial Position Sitting Pulse 74 Pulse Source Pulse Oximeter Pulse Oximetry (%) 94 Oxygen Delivery Method Room Air Intake Visit Reasons: Osteoporosis Intake Note: Patient last seen by Dr Hunter 12/15/22 presents today for 1 year follow up. Urgent Care Nurse Practitioner Required: No Accompanied by: Self / Same As Patient Allergies No Known Allergies Allergy (Verified 11/23/23 13:05) Medication List - Last Reconciled 11/23/23 by Clare Ohara MD alendronate 70 mg PO QWEEK calcium carbonate-vitamin D3 600 mg-5 mcg (200 unit) 1 tab PO DAILY vitamin B complex (B Complex-Vitamin B12 tablet) 1 tab PO DAILY vitamins A,C,N-ujit-fhrzbu 4,296 mcg-226 mg-90 mg (PreserVision AREDS) 1 cap PO BID HPI Comments Details: 63-year-old female with osteoporosis returns for follow-up. She was last seen by Dr. Hunter 12/2022. She has remained compliant with alendronate weekly. She takes it as prescribed, 1st thing in the morning, on an empty stomach, with a large glass of water and stay upright for 30 minutes. She eats 30 minutes after taking her alendronate. She has not had any side effects related to it. She has not had any falls or fractures. She takes vitamin D and calcium supplementation. She works out regularly at the gym. She continues to have pain in her tailbone area. Worse when she sits. [facility] Medical History COVID-19 vaccine series completed Recurrent UTI Osteoporosis Surgical History History of operative procedure on lumbosacral spinal structure H/O colonoscopy H/O breast biopsy History of bunionectomy Hx of hysterectomy Family History Father Pancreatic cancer Mother HTN (hypertension) Osteoporosis Sister Parkinson disease Other Cancer Social History Housing: House Alcohol intake: current Alcohol intake frequency: a few times a week Alcohol type: wine Comment: glass 2-3 s a week Patient Tobacco Use Status: Never used Tobacco e-Cigarette/Vaping Use: Never Used service: No Current occupational status: retired Cognitive needs: No Hearing needs: No Vision needs: Yes Review of Systems Musc Reports back pain Physical Exam Vital Signs: Last Vital Signs Pulse 74 11/23/23 13:04 BP 106/68 11/23/23 13:04 Pulse Ox 94 11/23/23 13:04 Oxygen Delivery Method Room Air 11/23/23 13:04 BMI result Body Mass Index 21.8 Const General: cooperative, healthy appearing and comfortable Nutritional Appearance: average body habitus Orientation/consciousness: patient oriented x3 Limitations: no limitations HEENT Head: Yes normocephalic and Yes atraumatic Mouth: moist mucous membranes Resp Effort & Inspection: normal respiratory effort and able to speak in complete sentences Auscultation: clear to auscultation bilaterally Cardio Rate: regular rate Rhythm: regular rhythm Skin General skin exam: no rashes or lesions noted Neuro General: patient oriented x3 Extrem Other: Minimal osteoarthritic changes of both hands with no active synovitis Results Reviewed Results Reviewed: [facility] [place] [place] [address] Mammography Report Signed Patient: Kasandra Amaral MR#: [id number] : 1960 Acct:[id number] Age/Sex: 62 / F ADM Date: 02/21/23 Loc: HO.MAMMO Attending Dr: Qian Torres NP Ordering Physician: Qian Torres NP Results: Date of Service: 02/21/23 Follow Up: Procedure(s): XR DEXA axial skeleton Accession Number(s): [id number] cc: Qian Torres NP~ EXAMINATION: BONE DENSITOMETRY CLINICAL INDICATION: Age-related osteoporosis without current pathological fracture. COMPARISON: Previous BD dated 02/16/2021 and baseline BD dated 02/08/2019. TECHNIQUE: Using a [employer] DXA System (software version: 13.1) manufactured by [employer], dual-energy x-ray absorptiometry was performed of the lumbar spine and left hip. The images are of good technical quality. Summary results are attached. FINDINGS: LEFT FEMUR, NECK: Current: BMD 0.633 g/cm2, Z-score -1.4, T-score -2.9, osteoporosis. Prior: BMD 0.607 g/cm2. Baseline: BMD 0.619 g/cm2. LEFT FEMUR, TOTAL: Current: BMD 0.725 g/cm2, Z-score -0.9, T-score -2.2, osteopenia, 2.9% decrease from previous, 0.7% decrease from baseline (<5% change is not significant). Prior: BMD 0.747 g/cm2. Baseline: BMD 0.730 g/cm2. AP SPINE L1-L4: Current: BMD 0.828 g/cm2, Z-score -1.2, T-score -2.9, osteoporosis, 0.6% decrease from previous, 4.3% increase from baseline (<5% change is not significant). Prior: BMD 0.833 g/cm2. Baseline: BMD 0.794 g/cm2. IDENTIFIED RISK FACTORS: Osteoporosis, menopause, hysterectomy. HISTORY OF FRACTURE: None listed. MEDICATIONS: Calcium supplements or multivitamin, vitamin D, bisphosphonate. MM/XR DEXA axial skeleton IMPRESSION: 1. DIAGNOSIS: Osteoporosis based on the lowest T-score value of -2.9 in the lumbar spine and femoral neck applying World Health Organization criteria. Assessment & Plan Assessment & Plan (1) Osteoporosis: Comment: Alendronate: February 2019- present Code(s): M81.0 - Age-related osteoporosis without current pathological fracture Category: Medical Qualifiers: Osteoporosis type: age-related Presence of current pathological fracture: without current pathological fracture Qualified Code(s): M81.0 - Age- related osteoporosis without current pathological fracture Plan: This is a 63-year-old female with osteoporosis who presents for follow-up. Patient took alendronate regularly as prescribed for 5 years. There has been no change in her bone density scan. There is no improvement. There is only 4.3 % improvement in her L-spine bone density. At this point. Patient needs a more potent agent. We should change the mechanism of action into an anabolic agent such as parathyroid hormone analogs. Discussed risks and benefits of Tymlos. Patient agreed to proceed. Will start prior authorization for Tymlos Discussed weight-bearing exercises. Continue calcium and vitamin-D supplementation Check bone activity markers today Follow-up in 6 months Plan I spent 26 minutes reviewing patient's chart, evaluating patient, ordering diagnostic workup, counseling patient and documenting in the chart Orders: Orders Collagen Type I C-Telopeptide Today M81.0 - Age-related osteoporosis without current pathological fracture Phosphorus Today M81.0 - Age-related osteoporosis without current pathological fracture TSH reflex Free T4 Today M81.0 - Age-related osteoporosis without current pathological fracture Vitamin D 25-OH Total Today M81.0 - Age-related osteoporosis without current pathological fracture Parathyroid Hormone Intact Today M81.0 - Age-related osteoporosis without current pathological fracture Comprehensive Met. Panel Today M81.0 - Age-related osteoporosis without current pathological fracture Protein Electrophoresis, Serum Today M81.0 - Age-related osteoporosis without current pathological fracture Medications: Discontinued alendronate Discontinued Reason: Doctor's Order 70 mg PO QWEEK 12 caps 3RF M81.0 - Age-related osteoporosis without current pathological fracture Coding Level of Care Code Est Pt Level 4 (64237) Diagnoses Age-related osteoporosis without current pathological fracture M81.0 Osteoporosis type: age-related Presence of current pathological fracture: without current pathological fracture
== END 2023-11-23 13:51 | disposition home or self-care (01) ==
PROVIDERS: PCP Internal Medicine; Visit Provider Student in an Organized Health Care Education/Training Program
DX: M81.0 Age-related osteoporosis without current pathological fracture (principal)
CPT/HCPCS: 99214

== ENCOUNTER 2023-11-23 12:56 | Outpatient (REF) | payer OTHER, SELFPAY ==
[2023-11-23 15:32] LABS: Parathyroid Hormone Intact 83.5 pg/mL (8.7-77.1)
[2023-11-23 15:39] LABS: Alanine Aminotransferase 28 U/L (0-31); Albumin Level 4.3 g/dL (3.5-5.0); Alkaline Phosphatase 45 U/L (39-117); Anion Gap 11 (12-20); Aspartate Amino Transferase 26 U/L (5-31); Bilirubin Total 0.6 mg/dL (0.0-1.0); Blood Urea Nitrogen 14 mg/dL (9-16); Calcium 9.3 mg/dL (8.4-10.2); Carbon Dioxide 26 mmol/L (22-29); Chloride 107 mmol/L (96-108); Estimated Glomerular Filt Rate > 60; Glucose Random 85 mg/dL (60-115); Phosphorus 2.7 mg/dL (2.7-4.5); Potassium 3.4 mmol/L (3.3-5.1); Sodium 141 mmol/L (135-145); Total Protein 6.8 g/dL (6.5-8.0)
[2023-11-23 15:46] LABS: TSH reflex Free T4 1.69 uIU/mL (0.32-4.0); Vitamin D 25-OH Total 42.1 ng/mL (>30)
[2023-11-24 12:48] LABS: Prot Elec - Albumin 4.5 g/dL (3.8-4.8); Prot Elec - Alpha1 0.3 g/dL (0.2-0.3); Prot Elec - Alpha2 0.6 g/dL (0.5-0.9); Prot Elec - Beta 1 0.4 g/dL (0.4-0.6); Prot Elec - Beta 2 0.3 g/dL (0.2-0.5); Prot Elec - Gamma 0.8 g/dL (0.8-1.7); Prot Elec - Total Protein 6.8 g/dL (6.1-8.1)
[2023-11-29 18:13] LABS: Collagen Type I C-Telopeptide 124 pg/mL (see note)
== END 2023-11-23 12:57 | disposition home or self-care (01) ==
LOC: HO.LAB 12:56
PROVIDERS: PCP Internal Medicine; Visit Provider Student in an Organized Health Care Education/Training Program
DX: M81.0 Age-related osteoporosis without current pathological fracture (principal)
CPT/HCPCS: 36415; 80053; 82306; 82523; 83970; 84100; 84165; 84443

== ENCOUNTER → 2023-12-05 10:39 | Outpatient (BNVA) | payer OTHER, SELFPAY | PROVIDERS: PCP Internal Medicine; Visit Provider Student in an Organized Health Care Education/Training Program ==

== ENCOUNTER 2023-12-21 10:29 | Outpatient (AMB) | payer OTHER, SELFPAY ==
--- NOTE | 2023-12-21 10:30 | A.OFFVIS_ITS ---
Vital Signs 12/21/23 10:34 Height 5 ft 6 in Weight 132 lb 0.91 oz BMI 21.3 BP 104/68 Blood Pressure Location Rt brachial Position Sitting Pulse 75 Pulse Source Pulse Oximeter Pulse Oximetry (%) 98 Oxygen Delivery Method Room Air Intake Visit Reasons: Osteoporosis Intake Note: Patient presents today for osteoporosis follow up, last seen 11/23/23. Patient reports Tymlos was discontinued (12/14/23) due to side effects. Service Counter Cashier Required: No Accompanied by: Self / Same As Patient Allergies abaloparatide [From Tymlos] Adverse Reaction (Intermediate, Verified 12/21/23 10:53) Nausea Medication List - Last Reconciled 12/21/23 by Clare Ohara MD calcium carbonate-vitamin D3 600 mg-5 mcg (200 unit) 1 tab PO DAILY vitamin B complex (B Complex-Vitamin B12 tablet) 1 tab PO DAILY vitamins A,C,I-doui-zroemw 4,296 mcg-226 mg-90 mg (PreserVision AREDS) 1 cap PO BID HPI Comments Details: 63-year-old female with osteoporosis returns for follow-up. She took Tymlos as prescribed for a few days. She could not tolerate it due to headache, nausea, dizziness. It lasted almost all day. She stopped this for a few days and rechallenge herself. She had the same side effects and side effects will not go away for a few days after taking the last dose. She can not restart it at this point. [facility] Medical History COVID-19 vaccine series completed Recurrent UTI Osteoporosis Surgical History History of operative procedure on lumbosacral spinal structure H/O colonoscopy H/O breast biopsy History of bunionectomy Hx of hysterectomy Family History Father Pancreatic cancer Mother HTN (hypertension) Osteoporosis Sister Parkinson disease Other Cancer Social History Housing: House Alcohol intake: current Alcohol intake frequency: a few times a week Alcohol type: wine Comment: glass 2-3 s a week Patient Tobacco Use Status: Never used Tobacco e-Cigarette/Vaping Use: Never Used service: No Current occupational status: retired Cognitive needs: No Hearing needs: No Vision needs: Yes Review of Systems Musc Reports back pain Physical Exam Vital Signs: Last Vital Signs Pulse 75 12/21/23 10:34 BP 104/68 12/21/23 10:34 Pulse Ox 98 12/21/23 10:34 Oxygen Delivery Method Room Air 12/21/23 10:34 BMI result Body Mass Index 21.3 Const General: cooperative, healthy appearing and comfortable Nutritional Appearance: average body habitus Orientation/consciousness: patient oriented x3 Limitations: no limitations HEENT Head: Yes normocephalic and Yes atraumatic Mouth: moist mucous membranes Resp Effort & Inspection: normal respiratory effort and able to speak in complete sentences Skin General skin exam: no rashes or lesions noted Neuro General: patient oriented x3 Extrem Other: Minimal osteoarthritic changes of both hands with no active synovitis Results Reviewed Results Reviewed: [facility]'[address] [place] [address] Mammography Report Signed Patient: Kasandra Amaral MR#: [id number] : 1960 Acct:[id number] Age/Sex: 62 / F ADM Date: 02/21/23 Loc: HO.MAMMO Attending Dr: Qian Torres NP Ordering Physician: Qian Torres NP Results: Date of Service: 02/21/23 Follow Up: Procedure(s): XR DEXA axial skeleton Accession Number(s): [id number] cc: Qian Torres NP~ EXAMINATION: BONE DENSITOMETRY CLINICAL INDICATION: Age-related osteoporosis without current pathological fracture. COMPARISON: Previous BD dated 02/16/2021 and baseline BD dated 02/08/2019. TECHNIQUE: Using a [employer] DXA System (software version: 13.1) manufactured by [employer], dual-energy x-ray absorptiometry was performed of the lumbar spine and left hip. The images are of good technical quality. Summary results are attached. FINDINGS: LEFT FEMUR, NECK: Current: BMD 0.633 g/cm2, Z-score -1.4, T-score -2.9, osteoporosis. Prior: BMD 0.607 g/cm2. Baseline: BMD 0.619 g/cm2. LEFT FEMUR, TOTAL: Current: BMD 0.725 g/cm2, Z-score -0.9, T-score -2.2, osteopenia, 2.9% decrease from previous, 0.7% decrease from baseline (<5% change is not significant). Prior: BMD 0.747 g/cm2. Baseline: BMD 0.730 g/cm2. AP SPINE L1-L4: Current: BMD 0.828 g/cm2, Z-score -1.2, T-score -2.9, osteoporosis, 0.6% decrease from previous, 4.3% increase from baseline (<5% change is not significant). Prior: BMD 0.833 g/cm2. Baseline: BMD 0.794 g/cm2. IDENTIFIED RISK FACTORS: Osteoporosis, menopause, hysterectomy. HISTORY OF FRACTURE: None listed. MEDICATIONS: Calcium supplements or multivitamin, vitamin D, bisphosphonate. MM/XR DEXA axial skeleton IMPRESSION: 1. DIAGNOSIS: Osteoporosis based on the lowest T-score value of -2.9 in the lumbar spine and femoral neck applying World Health Organization criteria. Assessment & Plan Assessment & Plan (1) Osteoporosis: Comment: Alendronate: February 2019- present Code(s): M81.0 - Age-related osteoporosis without current pathological fracture Category: Medical Qualifiers: Osteoporosis type: age-related Presence of current pathological fracture: without current pathological fracture Qualified Code(s): M81.0 - Age- related osteoporosis without current pathological fracture Plan: This is a 63-year-old female with osteoporosis who presents for follow-up. Patient took alendronate regularly as prescribed for 5 years. There has been no change in her bone density scan. There is no improvement. There is only 4.3 % improvement in her L-spine bone density. Tymlos was approved. Patient took it for a few days but could not tolerate it due to significant nausea, dizziness, headaches. She discontinued it. Patient needs another anabolic agent. Forteo will likely have similar side effects. Discussed risks and benefits of avidity. Patient agreed to proceed. Will start prior authorization for avidity. Continue with weight-bearing exercises. Continue calcium and vitamin-D supplementation Check bone activity markers today Follow-up in 6 months Plan I spent 16 minutes reviewing patient's chart, evaluating patient, counseling patient and documenting in the chart Coding Level of Care Code Est Pt Level 3 (62101) Diagnoses Age-related osteoporosis without current pathological fracture M81.0 Osteoporosis type: age-related Presence of current pathological fracture: without current pathological fracture
--- OUTSIDE RECORDS SUMMARY | 2023-12-21 10:31 | XMS_ITS | Continuity of Care Document ---
Author Organization [facility] Address [address] [place] [address]- Care Team Providers Care Food Safety Specialist Name Role Phone Lina Mercado MD Primary Care Physician Encounter [facility] [place] Date(s): 12/16/22 - 01/19/[address] [facility] [address] [address]- Attending Physician: Darrin Kam MD Admitting Physician: Darrin Kam MD Referring Physician: Darrin Kam MD Allergies, Adverse Reactions, Alerts No Known Medication Allergies Social History Social History Type Response Smoking Status Never smoker entered on: 04/19/15 Sex Patient Care team information Care Team Personnel Name: Lina Mercado MD Position: Reference Physician Member Role: PCP Address: Address: [address] [place] [address] Care Team Related Persons Name: KUSH LUGO Address: home [address] [place] [address]
--- OUTSIDE RECORDS SUMMARY | 2023-12-21 10:31 | XMS_ITS | Continuity of Care Document ---
Author Organization [facility] Address [address] [facility], [address]r d Floor, [address] [place] [address]- Care Team Providers Care Double Surface Operator Name Role Phone Lina Mercado MD Primary Care Physician Encounter [facility] [place] Date(s): 02/24/23 - 03/26/23 [facility] [address] [facility], 3rd Floor, [address] [place] [address]- Attending Physician: Admtr, Ar8 Admitting Physician: Admtr, Ar8 Referring Physician: Admtr, Ar8 Allergies, Adverse Reactions, Alerts No Known Medication Allergies Social History Social History Type Response Smoking Status Never smoker entered on: 04/19/15 Sex Patient Care team information Care Team Personnel Name: Lina Mercado MD Position: Reference Physician Member Role: PCP Address: Address: [address] [place] [address]- Care Team Related Persons Name: KUSH LUGO Address: home [address] [place] [address]
--- OUTSIDE RECORDS SUMMARY | 2023-12-21 10:31 | XMS_ITS | Continuity of Care Document ---
Author Organization [facility] Address [address] [facility], 3r d Floor, [address] [place] [address]- Care Team Providers Care Package Checker Name Role Phone Lina Mercado MD Primary Care Physician Encounter [facility] Date(s): 01/04/23 - 02/03/23 [facility] [address] [facility], 3rd Floor, [address] [place] [address]- Allergies, Adverse Reactions, Alerts No Known Medication Allergies Social History Social History Type Response Smoking Status Never smoker entered on: 04/19/15 Sex Patient Care team information Care Team Personnel Name: Lina Mercado MD Position: Reference Physician Member Role: PCP Address: Address: [address] [place] [address]- Care Team Related Persons Name: KUSH LUGO Address: [address] [place] [address]
--- OUTSIDE RECORDS SUMMARY | 2023-12-21 10:31 | XMS_ITS | Continuity of Care Document ---
Author Organization [facility] Address [address] [place] [address]- Care Team Providers Care Medical Office Coordinator Name Role Phone Lina Mercado MD Primary Care Physician [phone] Encounter [facility] [place] Date(s): 12/26/22 - 01/25/[address] [facility] [address] [address]- Attending Physician: Lobito Zendejas8 Admitting Physician: Admkaitlyn ArAshanti Referring Physician: Admtr, Ar8 Allergies, Adverse Reactions, Alerts No Known Medication Allergies Social History Social History Type Response Smoking Status Never smoker entered on: 04/19/15 Sex Patient Care team information Care Team Personnel Name: Lina Mercado MD Position: Reference Physician Member Role: PCP Address: Address: [address] [place] [id number] Care Team Related Persons Name: KUSH LUGO Address: [address] [place] [address]
--- OUTSIDE RECORDS SUMMARY | 2023-12-21 10:31 | XMS_ITS | Continuity of Care Document ---
Author Organization [facility] Address [address] [place] [address], [address]r d Floor, [address] [place] [address]- Care Team Providers Care Architect Intern Name Role Phone Lina Mercado MD Primary Care Physician Encounter [facility] [place] Date(s): 12/01/22 - 12/31/22 [facility] [address] [facility], 3rd Floor, [address] [place] [address]- Attending Physician: Admtr, Ar8 Admitting Physician: Admtr Ar8 Referring Physician: Admtr, Ar8 Allergies, Adverse Reactions, Alerts No Known Medication Allergies Social History Social History Type Response Smoking Status Never smoker entered on: 04/19/15 Sex Patient Care team information Care Team Personnel Name: Lina Mercado MD Position: Reference Physician Member Role: PCP Address: Address: [address] [place] [address]- Care Team Related Persons Name: KUSH LUGO Address: home [address] [place] [address]
--- OUTSIDE RECORDS SUMMARY | 2023-12-21 10:31 | XMS_ITS | Continuity of Care Document ---
Author Organization [facility] Address [address] [facility], 3r d Floor, [address] [place] [address]- Care Team Providers Care Reconstructive Surgeon Name Role Phone Lina Mercado MD Primary Care Physician Encounter [facility] [place] Date(s): 02/24/23 - 03/03/23 [facility] [address] [facility], 3rd Floor, [address] [place] [address]- Attending Physician: Sonia Potts MD, Petra Referring Physician: Lina Mercado MD Allergies, Adverse Reactions, Alerts No Known Medication Allergies Vital Signs Most recent to oldest [Reference Range]: 1 Weight 59.1 kg (02/24/23 3:00 PM) Oxygen Saturation [94-100 %] 98 % (02/24/23 3:00 PM) Pulse Rate [55-90 bpm] 80 bpm (02/24/23 3:00 PM) Blood Pressure [90-138/55-84 mm Hg] 109/ 72mm Hg (02/24/23 3:00 PM) Mode of Delivery (Oxygen) Room air (02/24/23 3:00 PM) Blood pressure sites Arm, left (02/24/23 3:00 PM) Weight Obtained Via Bed scale (02/24/23 3:00 PM) Social History Social History Type Response Smoking Status Never smoker entered on: 04/19/15 Sex Patient Care team information Care Team Personnel Name: Lina Mercado MD Position: Reference Physician Member Role: PCP Address: Address: [address] [place] [address]- Care Team Related Persons Name: KUSH LUGO Address: [address] [place] [address]
--- OUTSIDE RECORDS SUMMARY | 2023-12-21 10:31 | XMS_ITS | Continuity of Care Document ---
Author Organization [facility] Address [address] [facility], 3r d Floor, [address] [place] [address]- Care Team Providers Care Safety Advisor Name Role Phone Lina Mrecado MD Primary Care Physician [phone] Encounter [facility] Date(s): 04/06/23 - 05/06/23 [facility] [address] [facility], 3rd Floor, [address] [place] [address]- Allergies, Adverse Reactions, Alerts No Known Medication Allergies Social History Social History Type Response Smoking Status Never smoker entered on: 04/19/15 Sex Patient Care team information Care Team Personnel Name: Lina Mercado MD Position: Reference Physician Member Role: PCP Address: Address: [address] [place] [address]- Care Team Related Persons Name: KUSH LUGO Address: [address] [place] [address]
--- OUTSIDE RECORDS SUMMARY | 2023-12-21 10:31 | XMS_ITS | Patient Health Record ---
Author Organization [facility] Address [address] [place] [address] Care Team Providers Care Airframe Design Engineer Name Role Phone Lina Mercado MD Primary Care Provider Johnny Lawler Jr Unavailable [phone] ALLERGIES No Known Allergies REASON FOR REFERRAL No Information MEDICATIONS Medication SIG (Take, Route, Frequency, Duration) Notes Start Date End Date Status Calcium 1 tab Oral for 14 days Active Alendronate Sodium 70 MG 1 tablet 30 min utes before the first food, beverage or medicine of the day with plain water Orally Once a week Active B12 Folate 800-800 MCG as directed Orally Active MiraLax (colon prep) 17 GM/SCOOP mixed with Gatorade or Crystal Light Orally begin at 5:00 p.m. the day before the procedure for 1 day 04/05/2021 Active IMMUNIZATIONS Vaccine Route Administration Date Status Comme nts Influenza Unknown 04/05/2021 Administered SOCIAL HISTORY Tobacco Use: Social History Observation Description Date Details (start date - stop date) Never Smoker NA - NA Sex Assigned At : Social History Observation Description Sex Assigned At Unknown Tobacco Use/Smoking Question Answer Notes Patient is a nonsmoker Alcohol Screen Question Answer Notes Did you have a drink contain ing alcohol in the past year? Yes How often did you have a dri nk containing alcohol in the past year? 2 to 3 times a week (3 points) How many drinks did you have on a typical day when you were drinking in the past year? 1 or 2 drinks (0 point) Points 3 Interpretation Positive PROBLEMS Problem Type ICD Code Onset Dates Problem Status W/U Status Risk SNOMED Code Notes Problem Colon cancer screening (Z12.11) Active confirmed 780787089 Problem Encounter for other preprocedural examination (Z01.818) Active confirmed [id number] PLAN OF TREATMENT Pending Test Test Name Order Date COLONOSCOPY 04/13/2011 Future Test Test Name Order Date COLONOSCOPY 04/05/2021 Insurance Providers Payer Name Payer Address Payer Phone Subscriber Number Group Number Insured Name Patient Relationship to Insured Coverage Start Date Coverage End Date [facility] [address] [place] [address] [phone] [id number] BARTOLOME LUGO Self - patient is the insured [facility] [address] [place] [phone] [id number] BARTOLOME LUGO Self - patient is the insured MEDICAL (GENERAL) HISTORY Medical History History ICD Code Osteoporosis Surgical History Surgery Date(Month/Year) partial hysterectomy 12 years ago bunion removed 15 years ago
[2023-12-21 10:34] VITALS: BP 104/68; PULSE 75; O2SAT 98; BMI 21.3
== END 2023-12-21 11:07 | disposition home or self-care (01) ==
LOC: HO.RHE 10:29
PROVIDERS: PCP Internal Medicine; Visit Provider Student in an Organized Health Care Education/Training Program
DX: M81.0 Age-related osteoporosis without current pathological fracture (principal)
CPT/HCPCS: 99213

== ENCOUNTER → 2023-12-21 10:29 | Outpatient (BNVA) | payer OTHER, SELFPAY | PROVIDERS: PCP Internal Medicine; Visit Provider Student in an Organized Health Care Education/Training Program ==

== ENCOUNTER 2024-01-09 12:17 | Outpatient (REF) | payer OTHER, SELFPAY ==
[2024-01-09 13:16] LABS: Anion Gap 13 (12-20); Blood Urea Nitrogen 17 mg/dL (9-16); Calcium 9.6 mg/dL (8.4-10.2); Carbon Dioxide 27 mmol/L (22-29); Chloride 105 mmol/L (96-108); Estimated Glomerular Filt Rate > 60; Glucose Random 68 mg/dL (60-115); Potassium 3.5 mmol/L (3.3-5.1); Sodium 141 mmol/L (135-145)
[2024-01-09 13:33] LABS: Appearance Urine Cloudy; Color Urine Yellow; Glucose Urine UA Negative (Negative); Leukocyte Esterase Urine Large (3+) (Negative); Nitrite Urine Negative (Negative); UMIC TRIGGER UACC YES; Urine Blood Negative (Negative); Urine Ketones Trace mg/dL (Negative); Urine Protein Negative (Neg-Trace)
[2024-01-09 13:43] LABS: Bacteria Urine 1+ (None Seen); Hyaline Casts Urine 0-2 /LPF (0-2); RBC Urine 0-2 /HPF (0-2); Squamous Epithelial Cell Urine 0-2 /HPF (0-2); UACC Culture Trigger YES; WBC Urine >50 /HPF (0-5)
== END 2024-01-09 12:18 | disposition home or self-care (01) ==
LOC: HO.LAB 12:17
PROVIDERS: PCP Internal Medicine; Visit Provider Student in an Organized Health Care Education/Training Program
DX: M81.0 Age-related osteoporosis without current pathological fracture (principal); R39.9 Unspecified symptoms and signs involving the genitourinary system
CPT/HCPCS: 36415; 80048; 81001; 87086; 87088; 87186

== ENCOUNTER 2024-01-10 08:43 | Outpatient (AMB) | payer OTHER, SELFPAY ==
--- NOTE | 2024-01-10 09:10 | AM.OFFVISNUR ---
Intake Visit Reasons: Prolia injection Allergies abaloparatide [From Tymlos] Adverse Reaction (Intermediate, Verified 12/21/23 10:53) Nausea Office Meds Prolia 60 mg/mL subcutaneous syringe Performing Provider: Clare Ohara MD Performing Location: [facility] Rheumatology Administered by: Kiki Wilson RN on 01/10/24 09:10 Dose Route Admin Location Dispensed Lot Number Expiration Date [place] [employer] 60 mg subcut right upper arm 1 mL [id number] 05/09/26 69194-263-64 AMGEN Comments: Consent form signed. This was pt's first injection. Monitored for 15 minutes. Pt aware to call with any adverse reactions. Assessment & Plan Assessment & Plan Orders: Orders AMB Denosumab Injection Patient Supplied Today M81.0 - Age-related osteoporosis without current pathological fracture Medications: New Prolia (denosumab) 60 mg subcut ONCE 1 mL 0RF NS M81.0 - Age-related osteoporosis without current pathological fracture
== END 2024-01-10 09:09 | disposition home or self-care (01) ==
PROVIDERS: PCP Internal Medicine
DX: M81.0 Age-related osteoporosis without current pathological fracture (principal)

== ENCOUNTER → 2024-01-10 08:43 | Outpatient (BNVA) | payer OTHER, SELFPAY | PROVIDERS: PCP Internal Medicine | DX: M81.0 Age-related osteoporosis without current pathological fracture (principal) | CPT/HCPCS: 96372; J0897 ==

== ENCOUNTER 2024-01-22 14:04 | Outpatient (REF) | payer OTHER, SELFPAY ==
[2024-01-22 15:49] LABS: Appearance Urine Clear; Color Urine Yellow; Glucose Urine UA Negative (Negative); Leukocyte Esterase Urine Large (3+) (Negative); Nitrite Urine Negative (Negative); PH 6.5 (5.0-9.0); UMIC TRIGGER UACC YES; Urine Blood Negative (Negative); Urine Ketones Negative (Negative); Urine Protein Negative (Neg-Trace)
[2024-01-22 15:52] LABS: Bacteria Urine None Seen (None Seen); Hyaline Casts Urine 0-2 /LPF (0-2); RBC Urine 0-2 /HPF (0-2); Squamous Epithelial Cell Urine 0-2 /HPF (0-2); UACC Culture Trigger YES; WBC Urine >50 /HPF (0-5)
== END 2024-01-22 14:05 | disposition home or self-care (01) ==
LOC: HO.LAB 14:04
PROVIDERS: PCP Internal Medicine; Visit Provider Internal Medicine
DX: R39.9 Unspecified symptoms and signs involving the genitourinary system (principal); R30.0 Dysuria; R31.9 Hematuria, unspecified
CPT/HCPCS: 81001; 87086; 87088; 87186

== ENCOUNTER 2024-02-01 14:09 | Outpatient (REF) | payer OTHER, SELFPAY ==
[2024-02-01 14:43] LABS: Appearance Urine Clear; Color Urine Yellow; Glucose Urine UA Negative (Negative); Leukocyte Esterase Urine Small (1+) (Negative); Nitrite Urine Negative (Negative); UMIC TRIGGER UACC YES; Urine Blood Negative (Negative); Urine Ketones Trace mg/dL (Negative); Urine Protein Negative (Neg-Trace)
[2024-02-01 14:49] LABS: Bacteria Urine None Seen (None Seen); Hyaline Casts Urine 0-2 /LPF (0-2); RBC Urine 0-2 /HPF (0-2); Squamous Epithelial Cell Urine 0-2 /HPF (0-2); UACC Culture Trigger YES
== END 2024-02-01 14:10 | disposition home or self-care (01) ==
LOC: HO.LAB 14:09
PROVIDERS: PCP Internal Medicine; Visit Provider Internal Medicine
DX: R30.0 Dysuria (principal)
CPT/HCPCS: 81001; 87086

== ENCOUNTER 2024-02-05 08:48 | Outpatient (AMB) | payer OTHER, SELFPAY ==
[2024-02-05 08:50] VITALS: BP 120/74; PULSE 67; O2SAT 98; BMI 21.0
--- NOTE | 2024-02-05 08:50 | A.OFFPC_ITS ---
Vital Signs 02/05/24 08:50 Height 5 ft 6 in Weight 130 lb 0.4 oz BMI 21.0 BP 120/74 Blood Pressure Location Lt brachial Position Sitting Pulse 67 Pulse Source Pulse Oximeter Pulse Oximetry (%) 98 Oxygen Delivery Method Room Air Intake Visit Reasons: Recurring UTI Director Foundation Required: No Allergies abaloparatide [From Tymlos] Adverse Reaction (Intermediate, Verified 02/05/24 08:50) Nausea Medication List - Last Reconciled 02/05/24 by July Moscoso PA-C amoxicillin-pot clavulanate 500-125 mg 1 tab PO BID calcium carbonate-vitamin D3 600 mg-5 mcg (200 unit) 1 tab PO DAILY Prolia (denosumab) 60 mg subcut [id number] NS vitamin B complex (B Complex-Vitamin B12 tablet) 1 tab PO DAILY vitamins A,C,H-jnac-utidhl 4,296 mcg-226 mg-90 mg (PreserVision AREDS) 1 cap PO BID Tobacco use date assessed: 10/03/23 Fall risk assessment: No Falls in past year Last assessed Fall Risk: 02/05/24 Dental Screening Dental Screen Date: 10/03/23 HPI Recurring UTI HPI Details 63-year-old female with past medical his tory of osteoporosis, hypercholesterolemia, and lumbar radiculopathy last seen by Dr. Mercado 09/30 coming in for acute problem.? In review of the notes, patient follows with rheumatology for Prolia injections and was seen in the office 12/31 and will follow up in 6 months. Today she tells us she has been having intermittent suprapubic pain for about 6- 8 weeks. She has been treated with nitrofurantoin, ciprofloxacin, and now Augmentin for recurrent UTIs. She continues to have the suprapubic tenderness despite being on her 3rd antibiotic. The tenderness is sometimes exacerbated by eating as well as moving. She denies any bowel changes, reflux symptoms, fevers, or new low back pain. She also had her 1st dose of Prolia around the same time this discomfort started. [facility] Medical History COVID-19 vaccine series completed Recurrent UTI Osteoporosis Surgical History History of operative procedure on lumbosacral spinal structure H/O colonoscopy H/O breast biopsy History of bunionectomy Hx of hysterectomy Family History Father Pancreatic cancer Mother HTN (hypertension) Osteoporosis Sister Parkinson disease Other Cancer Social History Housing: House Alcohol intake: current Alcohol intake frequency: a few times a week Alcohol type: wine Comment: glass 2-3 s a week Patient Tobacco Use Status: Never used Tobacco e-Cigarette/Vaping Use: Never Used service: No Current occupational status: retired Cognitive needs: No Hearing needs: No Vision needs: Yes Questionnaire Thrive Questionnaire Date Thrive assessed: 10/03/23 I am a: Patient What is your living situation today?: I have a steady place to live Within the past 12 months, did the food you bought not last and you didn't have the money to get more?: Never true Within the past 12 months, did you worry whether your food would run out before you got money to buy more?: Never true Do you have trouble paying for medicines?: No Do you have trouble getting transportation to medical appointments?: No Do you have trouble paying your heating and electricity bill?: No Do you have trouble taking care of your child, family member or friend?: No Do you have trouble with day-to-day activities such as bathing, preparing meals, shopping, managing finances, etc.?: No Are you currently unemployed and looking for a job?: No Are you interested in more education?: No Please select the resources that you would like help with: None THRIVE Score: 0 AUDIT C Alcohol Use Questionnaire (AUDIT-C) 1. How often do you have a drink containing alcohol?: 2-3 times a week 2. How many drinks containing alcohol do you have on a typical day when you are drinking?: 1 or 2 3. How often do you have six or more drinks on one occasion?: Never Total Score: 3 NANETTE-7 AMB Questionnaire NANETTE-7 Date NANETTE - 7 assessed: 10/03/23 Source: Developed by Drs. Tim John, Ellen Peacock, Jose Espino and colleagues, with an educational ibis from [employer]. Review of Systems Const Denies body aches, Denies chills, Denies fever(s), Denies headache(s) and Denies poor appetite Eyes Reports no additional complaints ENT Denies dizziness and Denies headache(s) Card Denies chest pain and Denies dyspnea Resp Denies cough and Denies dyspnea GI Denies abdominal pain, Denies constipation, Denies dyspepsia, Denies heartburn, Denies diarrhea, Denies nausea and Denies vomiting Reports as per HPI, Denies abnormal vaginal bleeding, Denies dysuria, Denies urinary hesitancy and Denies urinary urgency Musc Reports no additional complaints and Denies abnormal gait Skin/Breast Reports system reviewed and no additional complaints, except as documented Neuro Denies abnormal gait, Denies dizziness and Denies headache(s) Psych Reports no additional complaints Physical exam (Primary Care) Vital Signs: Last Vital Signs Pulse 67 02/05/24 08:50 BP 120/74 02/05/24 08:50 Pulse Ox 98 02/05/24 08:50 Oxygen Delivery Method Room Air 02/05/24 08:50 BMI result Body Mass Index 21.0 Tobacco/Smoking Status: Tobacco use Status Tobacco use date assessed 10/03/23 02/05/24 08:54 Patient Tobacco Use Status Never used Tobacco 02/05/24 08:54 e-Cigarette/Vaping Use Never Used 02/05/24 08:54 Thrive Assessment: Date of Thrive Assessment Date Thrive assessed 10/03/23 02/05/24 08:54 Const General: cooperative, healthy appearing, comfortable and no acute distress Orientation/consciousness: patient oriented x3 HENMT Head: Yes normocephalic Ears: hearing grossly normal bilaterally General nose exam: Normal external nose present Eyes General: appearance normal, both eyes and all related structures Conjunctivae: conjunctivae normal Neck Neck: Yes full ROM and Yes no lymphadenopathy Resp Effort & Inspection: normal respiratory effort Auscultation: clear to auscultation bilaterally, no crackles, no rales, no rhonchi and no wheezes Cardio Rate: regular rate Rhythm: regular rhythm GI Inspection: Yes normal to inspection and No Abdominal wall edema Palpation (GI): Soft to palpation, not firm, Tenderness to palpation present (GI) suprapubicly, no guarding, not rigid and No Rebound tenderness present General: Yes no CVA tenderness Back/Spine/Pelvis Back: no CVA tenderness Skin General skin exam: no rashes or lesions noted Neuro General: patient oriented x3 Gait exam (Neuro): Normal gait present Extrem General: Yes normal to inspection, Yes full ROM and No edema Psych Affect: normal affect Attitude: cooperative Insight: Good insight present (Psych) Judgement: Good judgement present (Psych) Results AMB Urinalysis, Automated UA Leukoctes 0 Florian/uL Last Edit by INA Henry on 02/05/24 09:00 UA Nitrite Negative Last Edit by INA Henry on 02/05/24 09:00 UA Urobilinogen 0.2 mg/dL Last Edit by INA Henry on 02/05/24 09:00 UA Protein 0 mg/dL Last Edit by INA Henry on 02/05/24 09:00 UA pH 6.0 Last Edit by INA Henry on 02/05/24 09:00 UA Blood 0 Edd/uL Last Edit by INA Henry on 02/05/24 09:00 UA Specific [place] 1.020 Last Edit by INA Henry on 02/05/24 09:00 UA Ketone Negative Last Edit by INA Henry on 02/05/24 09:00 UA Bilirubin 0 mg/dL Last Edit by INA Henry on 02/05/24 09:00 UA Glucose 0 mg/dL Last Edit by INA Henry on 02/05/24 09:00 Results Reviewed Results Reviewed: Laboratory Last Values Urine pH (Auto) 6.0 02/05/24 08:56 Specific [place] (Auto) 1.020 02/05/24 08:56 Urine Protein (Auto) 0 mg/dL 02/05/24 08:56 Glucose (UA)(Auto) 0 mg/dL 02/05/24 08:56 Urine Ketones (Auto) Negative 02/05/24 08:56 Urine Blood (Auto) 0 Edd/uL 02/05/24 08:56 Urine Nitrite (Auto) Negative 02/05/24 08:56 Urine Bilirubin (Auto) 0 mg/dL 02/05/24 08:56 Urine Urobilinogen (Auto) 0.2 mg/dL 02/05/24 08:56 Leukocyte Esterase (Auto) 0 Florian/uL 02/05/24 08:56 Assessment and Plan Assessment & Plan (1) Recurrent UTI: Code(s): N39.0 - Urinary tract infection, site not specified Plan: Patient continues to have suprapubic tenderness despite being on her 3rd antibiotic for recurrent UTIs. She denies any burning with urination, bowel changes, fevers, or any other abdominal pain. Urinalysis in the office today was reassuring and no evidence of UTI at this time. Instructed to continue taking antibiotic as prescribed and take with food. We will order for bladder ultrasound and referral to Urology. Repeat urinalysis to be completed after her antibiotic has finished. If symptoms worsen recommend re-evaluation. Please reach out to advance seal delivery system maintainer regarding side effects of Prolia and how they may relate to your current symptoms. Plan This note was constructed using voice recognition software. While every effort has been made to ensure accuracy and dental equipment installer and servicer, still areas may have been included sometimes these areas may affect the content or meeting of the given symptoms. Total time spent caring for the patient today was 30 minutes. This includes time spent before the visit reviewing the chart, time spent during the visit, and time spent after the visit and documentation. Orders: Orders AMB Urinalysis Automated Today R30.0 - Dysuria US bladder Today N39.0 - Urinary tract infection, site not specified UA CC w/rflx Micro + Cult Today N39.0 - Urinary tract infection, site not specified Referrals Urology Referral N39.0 - Urinary tract infection, site not specified Coding Level of Care Code Est Pt Level 4 (20610) Diagnoses Recurrent UTI N39.0
== END 2024-02-05 09:14 | disposition home or self-care (01) ==
PROVIDERS: PCP Internal Medicine
DX: R30.0 Dysuria (principal)
CPT/HCPCS: 81003; 99214

== ENCOUNTER 2024-02-07 10:58 | Outpatient (REF) | payer OTHER, SELFPAY ==
--- NOTE | ~2024-02-07 | US_ITS ---
EXAMINATION: US PELVIS LIMITED (BLADDER) CLINICAL INFORMATION: Urinary tract infection, site not specified. COMPARISON: X-ray KUB 09/06/2018. TECHNIQUE: Real-time imaging of the bladder. FINDINGS: BLADDER: Well-distended. Moderate diffuse irregularity and borderline thickening of the bladder wall. Bilateral ureteral jets are demonstrated. Prevoid bladder volume is 387.3 mL. Postvoid bladder volume is 10.8 mL. US/US bladder IMPRESSION: 1. Moderate diffuse irregularity and borderline thickening of the bladder wall. 2. Postvoid bladder volume is 10.8 mL. This study was presented today February 13, 2024 for interpretation. Stat results provided at this time as requested by referring provider.
== END 2024-02-07 10:59 | disposition home or self-care (01) ==
LOC: HO.US 10:58
DX: N39.0 Urinary tract infection, site not specified (principal)
CPT/HCPCS: 76857

== ENCOUNTER 2024-02-16 11:59 | Outpatient (REF) | payer OTHER, SELFPAY ==
[2024-02-16 13:20] LABS: Appearance Urine Clear; Color Urine Yellow; Glucose Urine UA Negative (Negative); Leukocyte Esterase Urine Negative (Negative); Nitrite Urine Negative (Negative); Specific Gravity - Urine <= 1.005 (1.005-1.025); Urine Blood Negative (Negative); Urine Ketones Negative (Negative); Urine Protein Negative (Neg-Trace)
[2024-02-16 13:50] LABS: Anion Gap 11 (12-20); Blood Urea Nitrogen 14 mg/dL (9-16); Calcium 9.7 mg/dL (8.4-10.2); Carbon Dioxide 26 mmol/L (22-29); Chloride 103 mmol/L (96-108); Estimated Glomerular Filt Rate > 60; Glucose Random 83 mg/dL (60-115); Potassium 4.1 mmol/L (3.3-5.1); Sodium 136 mmol/L (135-145)
== END 2024-02-16 12:00 | disposition home or self-care (01) ==
LOC: HO.LAB 11:59
PROVIDERS: Student in an Organized Health Care Education/Training Program; PCP Internal Medicine
DX: N39.0 Urinary tract infection, site not specified (principal); M81.0 Age-related osteoporosis without current pathological fracture
CPT/HCPCS: 36415; 80048; 81003

== ENCOUNTER 2024-04-02 10:37 | Outpatient (AMB) | payer OTHER, SELFPAY ==
--- NOTE | 2024-04-02 10:39 | A.OFFVIS_ITS ---
Intake Visit Reasons: recurrent UTI Intake Note: New Patient presents for initial visit for recurrent uti Urology Medications: none Blood Thinner: none PVR: 15ml's Foxing Closer Required: No Accompanied by: Self / Same As Patient Allergies abaloparatide [From Tymlos] Adverse Reaction (Intermediate, Verified 04/02/24 11:20) Nausea Medication List - Last Reconciled 04/02/24 by ZAHRA Garrisno calcium carbonate-vitamin D3 600 mg-5 mcg (200 unit) 1 tab PO DAILY nitrofurantoin macrocrystal 100 mg PO BID 10 days Prolia (denosumab) 60 mg subcut [id number] NS vitamin B complex (B Complex-Vitamin B12 tablet) 1 tab PO DAILY vitamins A,C,C-fkve-uxqxmp 4,296 mcg-226 mg-90 mg (PreserVision AREDS) 1 cap PO BID HPI Comments Details: Kasandra Whitehead is a very pleasant 63-year-old female patient of Dr. Mercado. She has a past medical history of recurrent urinary tract infections and osteoporosis. She presents to the office today as a new patient for recurrent urinary tract infections. In discussion with the patient today she reports noting over the last year she has been having recurrent urinary tract infections and following up with urgent cares as well as PCP. Her last visit with her PCP require 3 different antibiotics for treatment of her urinary tract infection therefore referral was made to Urology for further assessment and evaluation. In review of patient's chart it appears a bladder ultrasound was ordered and performed. These results were reviewed with the patient today. The bladder is well distended. Moderate diffuse irregularity in borderline thickening of the bladder wall. Bladder jets are demonstrated. Pre void bladder volume is approximately 385 mL. Postvoid bladder volume is approximately 10 mL. When asked she denies any history of bowel issues. She discusses following up with pelvic floor therapy at [facility] for ongoing dysarenia she has been experiencing. She reports following up with her lighthouse keeper as well. She currently denies any bothersome urinary issues or concerns. She does however discuss feeling worried she will have a UTI with her upcoming travels. She denies urinary urgency, urinary frequency, incontinence, nocturia, hematuria, dysuria, foul smelling urine, changes to urinary stream, flank pain, fever, and or chills.She is happy with her current voiding parameters. She discusses typically when she experiences a urinary tract infection her symptoms are bladder pressure/discomfort and episodes of dysuria. She otherwise offers no other issues or concerns at this time. Urine Culture 01/30: E.Coli PFSH Medical History COVID-19 vaccine series completed Recurrent UTI Osteoporosis Surgical History History of operative procedure on lumbosacral spinal structure H/O colonoscopy H/O breast biopsy History of bunionectomy Hx of hysterectomy Family History Father Pancreatic cancer Mother HTN (hypertension) Osteoporosis Sister Parkinson disease Other Cancer Social History Housing: House Alcohol intake: current Alcohol intake frequency: a few times a week Alcohol type: wine Comment: glass 2-3 s a week Patient Tobacco Use Status: Never used Tobacco e-Cigarette/Vaping Use: Never Used service: No Current occupational status: retired Cognitive needs: No Hearing needs: No Vision needs: Yes Review of Systems Const All systems reviewed & are unremarkable except as noted in HPI and below Physical Exam Const General: cooperative, healthy appearing, comfortable, no acute distress, well developed, alert and awake Orientation/consciousness: patient oriented x3 Limitations: no limitations HEENT Head: Yes normal to inspection, Yes normocephalic and Yes atraumatic Ears: hearing grossly normal bilaterally Eyes General: appearance normal, both eyes and all related structures Neck Neck: Yes normal visual inspection and Yes trachea midline Chest Chest palpation & inspection: normal inspection of the chest Resp Effort & Inspection: normal respiratory effort and able to speak in complete sentences Cardio Rate: regular rate GI Inspection: Yes normal to inspection General: Yes no CVA tenderness Back/Spine/Pelvis Back: no CVA tenderness Skin General skin exam: no rashes or lesions noted Neuro General: patient oriented x3 Extrem General: Yes normal to inspection Psych Appearance: grossly normal and well kempt Mental Status: mental status grossly normal Speech and movement: Normal speech and movement present and Clear speech present Affect: normal affect Attitude: cooperative Thought process: Normal thought process present Thought content: Normal thought content present Insight: Fair insight present (Psych) Judgement: Fair judgement present (Psych) Office Procedures Post Void Residual Post Residual Void Post Void Residual (PVR): 15 [id number] Void Residual by ultrasound Results AMB Urinalysis, Automated UA Leukoctes 0 Florian/uL Last Edit by [employer] on 04/02/24 11:02 UA Nitrite Last Edit by [employer] on 04/02/24 11:02 UA Urobilinogen 0.2 mg/dL Last Edit by [employer] on 04/02/24 11:02 UA Protein 0 mg/dL Last Edit by [employer] on 04/02/24 11:02 UA pH 6.0 Last Edit by [employer] on 04/02/24 11:02 UA Blood 0 Edd/uL Last Edit by [employer] on 04/02/24 11:02 UA Specific [place] 1.025 Last Edit by [employer] on 04/02/24 11:02 UA Ketone Last Edit by [employer] on 04/02/24 11:02 UA Bilirubin 0 mg/dL Last Edit by [employer] on 04/02/24 11:02 UA Glucose 0 mg/dL Last Edit by [employer] on 04/02/24 11:02 Results Reviewed Results Reviewed: Laboratory Last Values Urine pH (Auto) 6.0 04/02/24 10:43 Specific [place] (Auto) 1.025 04/02/24 10:43 Urine Protein (Auto) 0 mg/dL 04/02/24 10:43 Glucose (UA)(Auto) 0 mg/dL 04/02/24 10:43 Urine Blood (Auto) 0 Edd/uL 04/02/24 10:43 Urine Bilirubin (Auto) 0 mg/dL 04/02/24 10:43 Urine Urobilinogen (Auto) 0.2 mg/dL 04/02/24 10:43 Leukocyte Esterase (Auto) 0 Florian/uL 04/02/24 10:43 Date of Service: 02/07/24 EXAMINATION: US PELVIS LIMITED (BLADDER) FINDINGS: BLADDER: Well-distended. Moderate diffuse irregularity and borderline thickening of the bladder wall. Bilateral ureteral jets are demonstrated. Prevoid bladder volume is 387.3 mL. Postvoid bladder volume is 10.8 mL. IMPRESSION: 1. Moderate diffuse irregularity and borderline thickening of the bladder wall. 2. Postvoid bladder volume is 10.8 mL. Assessment & Plan Assessment & Plan (1) Recurrent UTI: Code(s): N39.0 - Urinary tract infection, site not specified Category: Medical (2) Bladder wall thickening: Code(s): N32.89 - Other specified disorders of bladder Category: Medical Plan In office urinalysis results reviewed with the patient today; as noted above. PVR 15 mL. Recent bladder ultrasound results reviewed with the patient today; as noted above. We discussed at length potential causes of recurrent urinary tract infections. Patient with Estrace cream from lighthouse keeper discussed applying pea-sized amount to urethra 3 times per week. Continue with pelvic floor therapy as planned. Discussed possible near future in office cystoscopy. She currently denies any bothersome urinary issues or concerns. She reports be happy with current voiding parameters. P.r.n. prescription provided. Discussed UTI prevention with D mannose supplement, vitamin-C, increasing fluid intake, behavioral therapy with timed voiding, perineal hygiene and postcoital voiding, and management of constipation with stool softeners and increased fiber intake. Follow-up in 3 months with PVR; or sooner with any issues, concerns, and or questions. Orders: Orders AMB Urinalysis Automated Today Z13.9 - Encounter for screening, unspecified AMB Post Void Residual by ultrasound Today N39.0 - Urinary tract infection, site not specified Medications: New nitrofurantoin macrocrystal must administer with a meal/food 100 mg PO BID 10 days 20 caps 0RF N39.0 - Urinary tract infection, site not specified Patient Instructions: The patient had an opportunity to ask questions regarding the treatment plan. All questions were answered. Physical exam, labs, and imaging were discussed and reviewed in detail. As well as risks, benefits, and discussion of treatment choices. No major barriers to understanding were identified. The patient expressed understanding and agreement with the above treatment plan. The patient was made aware they should contact our office by phone for worsening of their current condition, the appearance of new symptoms, or with any questions or concerns. Compliance is encouraged with any medications and follow up testing that is ordered. It is a privilege to be allowed the opportunity to participate in? your urological care.? Again, if you have any questions or concerns If you have any questions or concerns please do not hesitate to contact me. The office is [phone]. This note is constructed using voice recognition software. While every effort has been made to ensure accuracy proced tech errors may have been included. Yours sincerely, SUELLEN Garrison-EDGAR Coding Level of Care Code New Pt Level 4 (84006) Diagnoses Recurrent UTI N39.0 Bladder wall thickening N32.89 CPT Codes Post Residual Void - PVR CPT Code: 27751-Nhxm Void Residual by ultrasound ([id number])
== END 2024-04-02 11:21 | disposition home or self-care (01) ==
PROVIDERS: PCP Internal Medicine; Visit Provider Nurse Practitioner Family
DX: N39.0 Urinary tract infection, site not specified (principal); N32.89 Other specified disorders of bladder; Z13.9 Encounter for screening, unspecified
CPT/HCPCS: 99204

== ENCOUNTER → 2024-04-02 10:37 | Outpatient (BNVA) | payer OTHER, SELFPAY | PROVIDERS: PCP Internal Medicine; Visit Provider Nurse Practitioner Family | DX: N39.0 Urinary tract infection, site not specified (principal); N32.89 Other specified disorders of bladder | CPT/HCPCS: 51798; 81003 ==

== ENCOUNTER 2024-04-19 15:28 | Outpatient (AMB) | payer OTHER, SELFPAY ==
--- NOTE | 2024-04-19 15:36 | MHC.PC.OV ---
Vital Signs 04/19/24 15:37 Height 5 ft 6 in Weight 132 lb 6 oz BMI 21.4 BP 102/68 Blood Pressure Location Lt brachial Position Sitting Pulse 74 Pulse Source Pulse Oximeter Pulse Oximetry (%) 97 Oxygen Delivery Method Room Air Intake Visit Reasons: Tailbone pain Intake Note: Patient is here to follow up on Tailbone pain. 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 Last seen for recurrent UTI 01/27/2024. Mammogram is up-to-date bone density is up-to-date colonoscopy is up-to-date. Patient has been having physical therapy and was alerted to concerns on urinary incontinence. And regarding the low back pain. And will patient continues to have some incontinence and with the complained of lower back with last MRI done in 2021 concern that there is no sacral MRI done. [facility] Medical History COVID-19 vaccine series completed Recurrent UTI Osteoporosis Surgical History History of operative procedure on lumbosacral spinal structure H/O colonoscopy H/O breast biopsy History of bunionectomy Hx of hysterectomy Family History Father Pancreatic cancer Mother HTN (hypertension) Osteoporosis Sister Parkinson disease Other Cancer Social History Housing: House Alcohol intake: current Alcohol intake frequency: a few times a week Alcohol type: wine Comment: glass 2-3 s a week Patient Tobacco Use Status: Never used Tobacco e-Cigarette/Vaping Use: Never Used Second Hand Smoke Exposure: No service: No Current occupational status: retired Cognitive needs: No Hearing needs: No Vision needs: Yes Questionnaire Thrive Questionnaire Date Thrive assessed: 10/03/23 Are you currently unemployed and looking for a job?: No NANETTE-7 AMB Questionnaire NANETTE-7 Date NANETTE - 7 assessed: 10/03/23 Source: Developed by Drs. Tim John, Ellen Peacock, Jose Espino and colleagues, with an educational ibis from [employer]. Physical exam (Primary Care) Vital Signs: Last Vital Signs Pulse 74 04/19/24 15:37 BP 102/68 04/19/24 15:37 Pulse Ox 97 04/19/24 15:37 Oxygen Delivery Method Room Air 04/19/24 15:37 BMI result Body Mass Index 21.4 Tobacco/Smoking Status: Tobacco use Status Tobacco use date assessed 04/19/24 04/19/24 15:41 Patient Tobacco Use Status Never used Tobacco 04/19/24 15:41 e-Cigarette/Vaping Use Never Used 04/19/24 15:41 Thrive Assessment: Date of Thrive Assessment Date Thrive assessed 10/03/23 04/19/24 15:41 Const General: alert; No acute distress Eyes Conjunctivae: conjunctivae normal Resp Auscultation: clear to auscultation bilaterally Cardio Rate: regular rate Rhythm: regular rhythm GI Inspection: Yes normal to inspection Extrem General: Yes normal to inspection and No edema Office Procedures Flu Questionnaire Does the patient have a severe egg allergy?: No Does the patient have severe life threatening allergies?: No Does the patient have a fever or illness today?: No Has the patient ever had Guillain-[place] Syndrome?: No Has the patient ever had any past reaction to a flu shot?: No Immunizations Fluarix Triv 6308-1174 (PF) 45 mcg (15 mcg x 3)/0.5 mL IM syringe Performing Provider: Lina Mercado MD [facility] Administered by: INA Henry on 04/19/24 15:44 Dose Route Admin Location Dispensed Lot Number Expiration Date [facility] Technical Maintenance Technician 0.5 mL IM Left Deltoid 0.5 mL [id number] 01/06/25 [id number] [employer] VIS Given Date VIS Provided VIS Publication Date 04/19/24 Single Vaccine 21 Eligibility Eligibility Date Funding Source Not [facility] Eligible 04/19/24 Private Coding Level of Care Code Est Pt Level 3 (12968) Diagnoses Spondylosis of lumbosacral spine with radiculopathy M47.27 Urinary incontinence R32 Hypercholesterolemia E78.00 Assessment & Plan Assessment & Plan (1) Spondylosis of lumbosacral spine with radiculopathy: Code(s): M47.27 - Other spondylosis with radiculopathy, lumbosacral region Category: Medical Plan: Will order for a follow-up MRI on the sacral area (2) Urinary incontinence: Code(s): R32 - Unspecified urinary incontinence Category: Medical Plan: Will order for an MRI the sacral area (3) Hypercholesterolemia: Code(s): E78.00 - Pure hypercholesterolemia, unspecified Category: Medical Plan: Avoid fried foods, chicken skin, eggs, butter margarine, pastries and meat. Be it pork or beef they have a lot of cholesterol discussed that we will prepare for blood work for next year for the cholesterol. LDL goal of less than 130 and triglyceride of less than 150 Orders: Orders Thyroid Stimulating Hormone 4 Months E78.00 - Pure hypercholesterolemia, unspecified Vitamin B12 and Folate 4 Months E78.00 - Pure hypercholesterolemia, unspecified Vitamin D 25-OH Total 4 Months E78.00 - Pure hypercholesterolemia, unspecified UA w Microscopic 4 Months E78.00 - Pure hypercholesterolemia, unspecified MR sacrum wo con Today M47.27 - Other spondylosis with radiculopathy, lumbosacral region, R32 - Unspecified urinary incontinence Complete Blood Count Auto Diff 4 Months E78.00 - Pure hypercholesterolemia, unspecified Comprehensive Met. Panel 4 Months E78.00 - Pure hypercholesterolemia, unspecified Free T4 (Free Thyroxine) 4 Months E78.00 - Pure hypercholesterolemia, unspecified Lipid Panel 4 Months E78.00 - Pure hypercholesterolemia, unspecified Influenza [id number] Immunization Today Z23 - Encounter for immunization
[2024-04-19 15:37] VITALS: BP 102/68; PULSE 74; O2SAT 97; BMI 21.4
== END 2024-04-19 16:33 | disposition home or self-care (01) ==
PROVIDERS: PCP Internal Medicine; Visit Provider Internal Medicine
DX: M47.27 Other spondylosis with radiculopathy, lumbosacral region (principal); R32 Unspecified urinary incontinence; E78.00 Pure hypercholesterolemia, unspecified; Z23 Encounter for immunization

== ENCOUNTER → 2024-04-19 15:28 | Outpatient (BNVA) | payer OTHER, SELFPAY | PROVIDERS: PCP Internal Medicine; Visit Provider Internal Medicine | DX: M47.27 Other spondylosis with radiculopathy, lumbosacral region (principal); R32 Unspecified urinary incontinence; E78.00 Pure hypercholesterolemia, unspecified; Z23 Encounter for immunization | CPT/HCPCS: 90471; 90656 ==

== ENCOUNTER → 2024-05-19 10:00 | Outpatient (BNV) | payer MEDICARE, OTHER, SELFPAY | PROVIDERS: PCP Internal Medicine; Visit Provider Radiology Diagnostic Radiology | DX: M54.10 Radiculopathy, site unspecified (principal) | CPT/HCPCS: 72195 ==

== ENCOUNTER 2024-05-19 10:05 | Outpatient (REF) | payer MEDICARE, OTHER, SELFPAY | END 2024-05-19 10:06 | disposition home or self-care (01) | LOC: HO.MRI 10:05 | PROVIDERS: PCP Internal Medicine; Visit Provider Internal Medicine | DX: M47.27 Other spondylosis with radiculopathy, lumbosacral region (principal); R32 Unspecified urinary incontinence | CPT/HCPCS: 72195 ==

== ENCOUNTER 2024-06-12 14:03 | Outpatient (REF) | payer MEDICARE, OTHER, SELFPAY ==
[2024-06-12 15:00] LABS: Appearance Urine Clear; Color Urine Yellow; Glucose Urine UA Negative (Negative); Leukocyte Esterase Urine Large (3+) (Negative); Nitrite Urine Negative (Negative); Specific Gravity - Urine <= 1.005 (1.005-1.025); UMIC TRIGGER UA YES; Urine Blood Negative (Negative); Urine Ketones Negative (Negative); Urine Protein Negative (Neg-Trace)
[2024-06-12 15:03] LABS: Bacteria Urine None Seen (None Seen); Hyaline Casts Urine 0-2 /LPF (0-2); RBC Urine 0-2 /HPF (0-2); Squamous Epithelial Cell Urine 0-2 /HPF (0-2); WBC Urine 21-50 /HPF (0-5)
--- OUTSIDE RECORDS SUMMARY | 2024-06-18 20:44 | XMS_ITS | Patient Health Record ---
Author Organization [facility] Address [address] [place] [address] Care Team Providers Care Manager Resort Name Role Phone Lina Mercado MD Primary Care Provider Johnny Lawler Jr Unavailable [phone] ALLERGIES No Known Allergies REASON FOR [...] Problem Colon cancer screening (Z12.11) Active confirmed [id number] Problem Encounter for other preprocedural examination (Z01.818) Active confirmed [id number] PLAN OF TREATMENT Pending Test Test Name Order Date COLONOSCOPY 04/13/2011 Future Test Test Name Order Date COLONOSCOPY 04/05/2021 Insurance Providers Payer Name Payer Address Payer Phone Subscriber Number Group Number Insured Name Patient Relationship to Insured Coverage Start Date Coverage End Date [facility] [address] [place] [address] [phone] [id number] BARTOLOME LUGO Self - patient is the insured [facility] [address] [place] [phone] [id number] BARTOLOME LUGO Self - patient is the insured MEDICAL (GENERAL) HISTORY Medical History History ICD Code Osteoporosis Surgical History Surgery Date(Month/Year) partial hysterectomy 12 years ago bunion removed 15 years ago
== END 2024-06-12 14:04 | disposition home or self-care (01) ==
LOC: HO.LAB 14:03
PROVIDERS: PCP Internal Medicine; Visit Provider Nurse Practitioner Family
DX: R32 Unspecified urinary incontinence (principal); N39.0 Urinary tract infection, site not specified; N32.89 Other specified disorders of bladder; R31.9 Hematuria, unspecified
CPT/HCPCS: 81001; 87086

== ENCOUNTER 2024-06-27 11:14 | Outpatient (REF) | payer OTHER, SELFPAY | END 2024-06-27 11:15 | disposition home or self-care (01) | LOC: HO.LNP 11:14 | PROVIDERS: PCP Internal Medicine; Visit Provider Nurse Practitioner Family | DX: R32 Unspecified urinary incontinence (principal); N39.0 Urinary tract infection, site not specified | CPT/HCPCS: 51798; 81003; 87086 ==

== ENCOUNTER 2024-06-27 11:14 | Outpatient (AMB) | payer OTHER, SELFPAY ==
--- OUTSIDE RECORDS SUMMARY | 2024-06-27 11:17 | XMS_ITS | Patient Health Record ---
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 Name Role Phone Lina Mercado MD Primary Care Provider Johnny Lawler Jr Unavailable ALLERGIES No Known Allergies REASON FOR REFERRAL [...] Problem Colon cancer screening (Z12.11) Active confirmed [id number] Problem Encounter for other preprocedural examination (Z01.818) Active confirmed [id number] PLAN OF TREATMENT Pending Test Test Name Order Date COLONOSCOPY 04/13/2011 Future Test Test Name Order Date COLONOSCOPY 04/05/2021 Insurance Providers Payer Name Payer Address Payer Phone Subscriber Number Group Number Insured Name Patient Relationship to Insured Coverage Start Date Coverage End Date [facility] [address] [place] [address] [phone] [id number] BARTOLOME LUGO Self - patient is the insured [facility] [address] [place] [phone] [id number] BARTOLOME LUGO Self - patient is the insured MEDICAL (GENERAL) HISTORY Medical History History ICD Code Osteoporosis Surgical History Surgery Date(Month/Year) partial hysterectomy 12 years ago bunion removed 15 years ago
--- NOTE | 2024-06-27 11:18 | A.OFFVIS_ITS ---
Intake Visit Reasons: 3m/PVR Intake Note: Patient presents today for follow up visit on: recurrent uti Urology Medications: estrace cream Blood Thinner: none PVR: 63ml's Otolaryngologist Required: No Accompanied by: Self / Same As Patient Allergies abaloparatide [From Tymlos] Adverse Reaction (Intermediate, Verified 06/27/24 12:19) Nausea Medication List - Last Reconciled 06/27/24 by ZAHRA Garrison calcium carbonate-vitamin D3 600 mg-5 mcg (200 unit) 1 tab PO DAILY estradiol 0.01%(0.1mg/gram) 2 grams vaginal 3XW 90 days Prolia (denosumab) 60 mg subcut [id number] NS vitamins A,C,C-vhpv-acfzaf 4,296 mcg-226 mg-90 mg (PreserVision AREDS) 1 cap PO BID HPI Comments Details: Kasandra Whitehead is a very pleasant 64-year-old female patient of Dr. Mercado. She has a past medical history of recurrent urinary tract infections and osteoporosis. She presents to the office today for follow-up. Of note, patient was seen approximately 3 months ago as a new patient for recurrent urinary tract infections at which time she was started on Estrace cream. In discussion with the patient today she reports she had initially started Estrace cream however then went on vacation and stopped using it however we started last night. She reports up until the beginning of this month she had been doing well until she started experiencing bladder pressure and intermittent episodes of dysuria. In review of patient's chart it appears urine culture 07/02 > 100,000 cfu/ml. She currently feels discomfort in her lower abdominal/bladder area however states dysuria she had been experiencing is no longer present. In office urinalysis results reviewed with the patient today 2+ leukocytes negative nitrates. She reports having had a pelvic MRI due to ongoing low-back pain and incontinence issue she continues to experience. In review of patient's chart it appears MRI remains pending. Previous workup has included bladder ultrasound 01/30 noting the bladder is well distended. Moderate diffuse irregularity in borderline th ickening of the bladder wall. Bladder jets are demonstrated. Pre void bladder volume is approximately 385 mL. Postvoid bladder volume is approximately 10 mL. When asked she denies any history of bowel issues. She discusses following up with pelvic floor therapy at [facility] for ongoing dyspareunia she has been experiencing however has not found this helpful in his looking to undergo pelvic floor therapy elsewhere. She reports following up with her loss prevention guard as well. She denies flank pain, fever, and or chills. We discussed further treatment options for recurrent urinary tract infections as well as urinary incontinence. She otherwise offers no other issues or concerns at this time. Urine Culture 01/30: E.Coli, 01/30 mixed bacteria, 07/02 mixed bacteria PFSH Medical History COVID-19 vaccine series completed Recurrent UTI Osteoporosis Surgical History History of operative procedure on lumbosacral spinal structure H/O colonoscopy H/O breast biopsy History of bunionectomy Hx of hysterectomy Family History Father Pancreatic cancer Mother HTN (hypertension) Osteoporosis Sister Parkinson disease Other Cancer Social History Housing: House Alcohol intake: current Alcohol intake frequency: a few times a week Alcohol type: wine Comment: glass 2-3 s a week Patient Tobacco Use Status: Never used Tobacco e-Cigarette/Vaping Use: Never Used Second Hand Smoke Exposure: No service: No Current occupational status: retired Cognitive needs: No Hearing needs: No Vision needs: Yes Review of Systems Const All systems reviewed & are unremarkable except as noted in HPI and below Physical Exam Const General: cooperative, healthy appearing, comfortable, no acute distress, well developed, alert and awake Orientation/consciousness: patient oriented x3 Limitations: no limitations HEENT Head: Yes normal to inspection, Yes normocephalic and Yes atraumatic Ears: hearing grossly normal bilaterally Eyes General: appearance normal, both eyes and all related structures Neck Neck: Yes normal visual inspection and Yes trachea midline Chest Chest palpation & inspection: normal inspection of the chest Resp Effort & Inspection: normal respiratory effort and able to speak in complete sentences Cardio Rate: regular rate GI Inspection: Yes normal to inspection General: Yes no CVA tenderness Back/Spine/Pelvis Back: no CVA tenderness Skin General skin exam: no rashes or lesions noted Neuro General: patient oriented x3 Extrem General: Yes normal to inspection Psych Appearance: grossly normal and well kempt Mental Status: mental status grossly normal Speech and movement: Normal speech and movement present and Clear speech present Affect: normal affect Attitude: cooperative Thought process: Normal thought process present Thought content: Normal thought content present Insight: Fair insight present (Psych) Judgement: Fair judgement present (Psych) Office Procedures Post Void Residual Post Residual Void Post Void Residual (PVR): 63 [id number] Void Residual by ultrasound Results AMB Urinalysis, Automated UA Leukoctes 125 Florian/uL Last Edit by Motopia on 06/27/24 11:45 UA Nitrite Last Edit by Motopia on 06/27/24 11:45 UA Urobilinogen 0.2 mg/dL Last Edit by Motopia on 06/27/24 11:45 UA Protein 0 mg/dL Last Edit by Motopia on 06/27/24 11:45 UA pH 6.0 Last Edit by Motopia on 06/27/24 11:45 UA Blood 0 Edd/uL Last Edit by Motopia on 06/27/24 11:45 UA Specific [place] 1.015 Last Edit by Motopia on 06/27/24 11:45 UA Ketone Negative Last Edit by Motopia on 06/27/24 11:45 UA Bilirubin 0 mg/dL Last Edit by Motopia on 06/27/24 11:45 UA Glucose 0 mg/dL Last Edit by Motopia on 06/27/24 11:45 Results Reviewed Results Reviewed: Laboratory Last Values Urine pH (Auto) 6.0 06/27/24 11:43 Specific [place] (Auto) 1.015 06/27/24 11:43 Urine Protein (Auto) 0 mg/dL 06/27/24 11:43 Glucose (UA)(Auto) 0 mg/dL 06/27/24 11:43 Urine Ketones (Auto) Negative 06/27/24 11:43 Urine Blood (Auto) 0 Edd/uL 06/27/24 11:43 Urine Bilirubin (Auto) 0 mg/dL 06/27/24 11:43 Urine Urobilinogen (Auto) 0.2 mg/dL 06/27/24 11:43 Leukocyte Esterase (Auto) 125 Florian/uL 06/27/24 11:43 Assessment & Plan Assessment & Plan (1) Urinary incontinence: Code(s): R32 - Unspecified urinary incontinence Category: Medical (2) Recurrent UTI: Code(s): N39.0 - Urinary tract infection, site not specified Category: Medical Plan In office urinalysis results reviewed the patient today; as noted above; will send for urine culture. Will refer to pelvic floor therapy for further assessment evaluation. We discussed further treatment options of recurrent urinary tract infections as well as incontinence and risks and benefits of these treatment options. Will schedule for in office urodynamics as discussed. We discussed importance of compliance with Estrace cream in relation to recurrent urinary tract infections. Restart Estrace cream as discussed and prescribed. Discussed UTI prevention with D mannose supplement, vitamin-C, increasing fluid intake, behavioral therapy with timed voiding, perineal hygiene and postcoital voiding, and management of constipation with stool softeners and increased fiber intake. Discussed possible methenamine and vitamin-C in the near future. Information provided regarding in office urodynamics. Follow-up in 3 months; or sooner with any issues, concerns, and or questions. Orders: Orders AMB Urinalysis Automated Today Z13.9 - Encounter for screening, unspecified AMB Post Void Residual by ultrasound Today R32 - Unspecified urinary incontinence PT Evaluation and Treatment Today R32 - Unspecified urinary incontinence Urine Culture Today N39.0 - Urinary tract infection, site not specified Medications: New estradiol 0.01%(0.1mg/gram) Apply pea-sized amount to urethra 3 times per week 2 grams vaginal 3XW 90 days 42.5 grams 3RF Patient Instructions: The patient had an opportunity to ask questions regarding the treatment plan. All questions were answered. Physical exam, labs, and imaging were discussed and reviewed in detail. As well as risks, benefits, and discussion of treatment choices. No major barriers to understanding were identified. The patient expressed understanding and agreement with the above treatment plan. The patient was made aware they should contact our office by phone for worsening of their current condition, the appearance of new symptoms, or with any questions or concerns. Compliance is encouraged with any medications and follow up testing that is ordered. It is a privilege to be allowed the opportunity to participate in? your urological care.? Again, if you have any questions or mukund rns If you have any questions or concerns please do not hesitate to contact me. The office is [phone]. This note is constructed using voice recognition software. While every effort has been made to ensure accuracy tenant coordinator errors may have been included. Yours sincerely, SUELLEN Garrison-EDGAR Coding Level of Care Code Est Pt Level 3 (15105) Complex EM visit Add On G2211 Diagnoses Urinary incontinence R32 Recurrent UTI N39.0 CPT Codes Post Residual Void - PVR CPT Code: 61877-Auck Void Residual by ultrasound ([id number])
== END 2024-06-27 12:05 | disposition home or self-care (01) ==
PROVIDERS: PCP Internal Medicine; Visit Provider Nurse Practitioner Family
DX: R32 Unspecified urinary incontinence (principal); N39.0 Urinary tract infection, site not specified; Z13.9 Encounter for screening, unspecified
CPT/HCPCS: 99213

== ENCOUNTER 2024-07-09 10:37 | Outpatient (REF) | payer MEDICARE, OTHER, SELFPAY ==
--- OUTSIDE RECORDS SUMMARY | 2024-07-09 10:59 | XMS_ITS | Patient Health Record ---
Author Organization [facility] Address [address] [place] [address] Care Team Providers Care Bender Machine Operator Name Role Phone Lina Mercado MD [...] Problem Colon cancer screening (Z12.11) Active confirmed [id number] Problem Encounter for other preprocedural examination (Z01.818) Active confirmed [id number] PLAN OF TREATMENT Pending Test Test Name Order Date COLONOSCOPY 04/13/2011 Future Test Test Name Order Date COLONOSCOPY 04/05/2021 Insurance Providers Payer Name Payer Address Payer Phone Subscriber Number Group Number Insured Name Patient Relationship to Insured Coverage Start Date Coverage End Date [facility] [address] [place] [address] [phone] [id number] BARTOLOME LUGO Self - patient is the insured [facility] [address] [place] [phone] [id number] BARTOLOME LUGO Self - patient is the insured MEDICAL (GENERAL) HISTORY Medical History History ICD Code Osteoporosis Surgical History Surgery Date(Month/Year) partial hysterectomy 12 years ago bunion removed 15 years ago
[2024-07-09 12:00] LABS: Anion Gap 11 (12-20); Blood Urea Nitrogen 21 mg/dL (9-16); Calcium 9.4 mg/dL (8.4-10.2); Carbon Dioxide 27 mmol/L (22-29); Chloride 110 mmol/L (96-108); Estimated Glomerular Filt Rate > 60; Glucose Random 86 mg/dL (60-115); Potassium 4.6 mmol/L (3.3-5.1); Sodium 143 mmol/L (135-145)
[2024-07-13 13:43] LABS: Vitamin D 25-OH, D2 <4 ng/mL; Vitamin D 25-OH, D3 38 ng/mL; Vitamin D 25-OH, Total 38 ng/mL (30-100)
== END 2024-07-09 10:38 | disposition home or self-care (01) ==
LOC: HO.LAB 10:37
PROVIDERS: PCP Internal Medicine; Visit Provider Student in an Organized Health Care Education/Training Program
DX: E55.9 Vitamin D deficiency, unspecified (principal); M81.0 Age-related osteoporosis without current pathological fracture
CPT/HCPCS: 36415; 80048; 82306

== ENCOUNTER 2024-07-09 10:49 | Outpatient (RCR) | payer MEDICARE, OTHER, SELFPAY ==
--- NOTE | 2024-05-31 16:39 | MHC.PT.EP ---
[facility] [place] Office [place] Office [place] Office [address] Carina Bermudez [address] [phone] F: [phone] F: [phone] F: [phone] F: [phone] Physical Therapy Plan of Care Date of Evaluation: 05/31/24 Date of Surgery: NA Diagnosis: SACROCOCCYGEAL DISORDERS Assessment: Pt IS 64 YO F REFERRED TO PT FROM DR AREVALO WITH SACROCOCCYGEAL DISORDERS. PRESENTS WITH SOME MIN PELVIC ASYMM, TIGHT HS R>L, TIGHT GLUT MMS R>L. MAY BENFIT FROM TRIAL OF PT FOR MET, CORE WORK, STRETCHING. MAY BENEFIT FROM PELVIC FLOOR EVAL ALSO FOR URINARY INCONTINENCE Frequency and Duration: The patient will be seen 1X/WK X 4 WKS Short Term Goals: 1. INCREASED POSTURE AWARENESS AND AWARENESS BACK CARE 2. IMPROVED PELVIC SYMMETRY Penitentiary Goals: 1. DECREASED LBP/COCCYX PAIN AT LEAST 50% WITH ADLS 2. I HEP WITH DC EX PLAN Treatment Plan: Modalities to reduce pain, spasms and effusion. Manual therapy to restore motion and function. Therapeutic exercise to improve strength and flexibility. Neuromuscular re-education for posture and balance. Therapeutic activities to return to functional activities of daily living. Electronically signed by: RADHA BOSCH PT Please sign and return to therapist. Thank you for your referral.
--- NOTE | 2024-08-20 10:28 | MHC.PT.DC ---
[facility] Office [place] Office [place] Office [address] Carina Bermudez [address] [phone] F: [phone] F: [phone] F: [phone] F: [phone] Physical Therapy Discharge Report Diagnosis: SACROCOCCYGEAL DISORDERS Date of Surgery: NA Date of Evaluation: 05/31/24 Date of Discharge: 08/20/24 Treatments to Date: 4 Cancellations to Date: No Shows to Date: Discharge Status: Improved Function Independent with HEP Discharge Summary: Pt LAST SEEN IN PT 07/09/24. AT THAT TIME Pt REPORTS SHE FEELS LIKE SHE'S AT A POINT WHERE SHE HAS HER EXS TO WORK ON AT HOME AND .DC PT WITH HEP. Pt TO START PT FOR PELVIC FLOOR [ End ] [ End ] Electronically signed by: RADHA BOSCH PT Please sign and return to therapist. Thank you for your referral.
== END 2024-08-20 10:28 | disposition home or self-care (01) ==
LOC: HO.PT 10:49
PROVIDERS: PCP Internal Medicine; Visit Provider Internal Medicine
DX: M53.3 Sacrococcygeal disorders, not elsewhere classified (principal)
CPT/HCPCS: 97110; 97140; 97161

== ENCOUNTER 2024-07-15 08:44 | Outpatient (AMB) | payer OTHER, SELFPAY ==
--- NOTE | 2024-07-15 08:54 | A.OFFVIS_ITS ---
Vital Signs 07/15/24 08:58 Height 5 ft 6 in Weight 137 lb 5.568 oz BMI 22.2 BP 102/70 Blood Pressure Location Rt brachial Position Sitting Pulse 68 Pulse Source Pulse Oximeter Pulse Oximetry (%) 98 Oxygen Delivery Method Room Air Intake Visit Reasons: Osteoporosis follow up and Prolia inj Intake Note: Patient presents for Osteoporosis follow up and Prolia injection. Allergies abaloparatide [From Tymlos] Adverse Reaction (Intermediate, Verified 07/15/24 08:57) Nausea Medication List - Last Reconciled 07/15/24 by Clare Ohara MD calcium carbonate-vitamin D3 600 mg-5 mcg (200 unit) 1 tab PO DAILY estradiol 0.01%(0.1mg/gram) 2 grams vaginal 3XW 90 days Prolia (denosumab) 60 mg subcut [id number] NS vitamins A,C,B-mwjv-ncybqg 4,296 mcg-226 mg-90 mg (PreserVision AREDS) 1 cap PO BID HPI Comments Details: 64-year-old female with osteoporosis returns for follow-up. She remains on Prolia. She received her 2nd injection in clinic today. She takes vitamin D and calcium supplementation. She denies any falls or fractures since last visit. No complaints today PFSH Medical History COVID-19 vaccine series completed Recurrent UTI Osteoporosis Surgical History History of operative procedure on lumbosacral spinal structure H/O colonoscopy H/O breast biopsy History of bunionectomy Hx of hysterectomy Family History Father Pancreatic cancer Mother HTN (hypertension) Osteoporosis Sister Parkinson disease Other Cancer Social History Housing: House Alcohol intake: current Alcohol intake frequency: a few times a week Alcohol type: wine Comment: glass 2-3 s a week Patient Tobacco Use Status: Never used Tobacco e-Cigarette/Vaping Use: Never Used Second Hand Smoke Exposure: No service: No Current occupational status: retired Cognitive needs: No Hearing needs: No Vision needs: Yes Review of Systems [facility] Reports no additional complaints Physical Exam Vital Signs: Last Vital Signs Pulse 68 07/15/24 08:58 BP 102/70 07/15/24 08:58 Pulse Ox 98 07/15/24 08:58 Oxygen Delivery Method Room Air 07/15/24 08:58 BMI result Body Mass Index 22.2 Const General: cooperative, healthy appearing and comfortable Nutritional Appearance: average body habitus Orientation/consciousness: patient oriented x3 Limitations: no limitations HEENT Head: Yes normocephalic and Yes atraumatic Mouth: moist mucous membranes Resp Effort & Inspection: normal respiratory effort and able to speak in complete sentences Skin General skin exam: no rashes or lesions noted Neuro General: patient oriented x3 Extrem Other: Minimal osteoarthritic changes of both hands with no active synovitis Office Meds Prolia 60 mg/mL subcutaneous syringe Performing Provider: Clare Ohara MD Performing Location: [facility] [place] Rheumatology Administered by: Kiki Wilson RN on 07/15/24 09:11 Dose Route Admin Location Dispensed Lot Number Expiration Date [facility] Supervisory Aide 60 mg subcut right upper arm 1 mL [id number] 01/06/27 69424-514-47 [facility] Comments: Consent form signed by patient. Pt denies any adverse reactions to previous injections. Pt tolerated injection well. Assessment & Plan Assessment & Plan (1) Osteoporosis: Comment: Alendronate: February 2019- 12/2023 without improvement Tymlos 12/2023. Discontinued after a few doses due to significant nausea and dizziness Prolia started 01/2024 Code(s): M81.0 - Age-related osteoporosis without current pathological fracture Category: Medical Qualifiers: Osteoporosis type: age-related Presence of current pathological fracture: without current pathological fracture Qualified Code(s): M81.0 - Age- related osteoporosis without current pathological fracture Plan: This is a 64-year-old female with osteoporosis who presents for follow-up. She remains on Prolia. Well-tolerated. Vitamin D level is not optimal. Advised patient to double up on her vitamin-D and calcium supplement intake Continue weight-bearing exercises Continue with Prolia injection q.6 months. Plan to repeat DEXA scan after 4 Prolia doses Labs before next visit in 6 months Plan I spent 16 minutes reviewing patient's chart, evaluating patient, ordering diagnostic workup, counseling patient and documenting in the chart Orders: Orders AMB Denosumab Injection Patient Supplied Today M81.0 - Age-related osteoporosis without current pathological fracture Basic Metabolic Panel 6 Months M81.0 - Age-related osteoporosis without current pathological fracture Vitamin D 25-OH Total 6 Months E55.9 - Vitamin D deficiency, unspecified Coding Level of Care Code Est Pt Level 3 (45103) Diagnoses Age-related osteoporosis without current pathological fracture M81.0 Osteoporosis type: age-related Presence of current pathological fracture: without current pathological fracture
[2024-07-15 08:58] VITALS: BP 102/70; PULSE 68; O2SAT 98; BMI 22.2
--- OUTSIDE RECORDS SUMMARY | 2024-07-15 09:10 | XMS_ITS | Patient Health Record ---
Author Organization [facility] Address [address] [place] [address] Care Team Providers Care Ukrainian Folk Arts Instructor Name Role Phone Lina Mercado MD Primary Care Provider Johnny Lawler Jr Unavailable [phone] ALLERGIES No Known Allergies REASON FOR [...] Problem Colon cancer screening (Z12.11) Active confirmed [id number] Problem Encounter for other preprocedural examination (Z01.818) Active confirmed [id number] PLAN OF TREATMENT Pending Test Test Name Order Date COLONOSCOPY 04/13/2011 Future Test Test Name Order Date COLONOSCOPY 04/05/2021 Insurance Providers Payer Name Payer Address Payer Phone Subscriber Number Group Number Insured Name Patient Relationship to Insured Coverage Start Date Coverage End Date [facility] [address] [place] [address] [phone] [id number] BARTOLOME LUGO Self - patient is the insured [facility] [address] [place] [phone] [id number] BARTOLOME LUGO Self - patient is the insured MEDICAL (GENERAL) HISTORY Medical History History ICD Code Osteoporosis Surgical History Surgery Date(Month/Year) partial hysterectomy 12 years ago bunion removed 15 years ago
== END 2024-07-15 09:24 | disposition home or self-care (01) ==
PROVIDERS: PCP Internal Medicine; Visit Provider Student in an Organized Health Care Education/Training Program
DX: M81.0 Age-related osteoporosis without current pathological fracture (principal)
CPT/HCPCS: 99213

== ENCOUNTER → 2024-07-15 08:44 | Outpatient (BNVA) | payer OTHER, SELFPAY | PROVIDERS: PCP Internal Medicine; Visit Provider Student in an Organized Health Care Education/Training Program | DX: M81.0 Age-related osteoporosis without current pathological fracture (principal) | CPT/HCPCS: 96372; J0897 ==

== ENCOUNTER 2024-09-02 14:33 | Outpatient (REF) | payer MEDICARE, OTHER, SELFPAY ==
[2024-09-02 15:44] LABS: Influenza A PCR NEGATIVE (Negative); Influenza B PCR NEGATIVE (Negative); Resp Syncy Virus RNA Qual PCR NEGATIVE (Negative); SARS COV2 PCR INHOUSE NEGATIVE (Negative)
--- OUTSIDE RECORDS SUMMARY | 2024-09-02 16:47 | XMS_ITS | Patient Health Record ---
Author Organization [facility] Address [address] [place] [address] Care Team Providers Care Development Intern Name Role Phone Lina Mercado MD [...] Problem Colon cancer screening (Z12.11) Active confirmed [id number] Problem Encounter for other preprocedural examination (Z01.818) Active confirmed [id number] PLAN OF TREATMENT Pending Test Test Name Order Date COLONOSCOPY 04/13/2011 Future Test Test Name Order Date COLONOSCOPY 04/05/2021 Insurance Providers Payer Name Payer Address Payer Phone Subscriber Number Group Number Insured Name Patient Relationship to Insured Coverage Start Date Coverage End Date [facility] [address] [place] [address] [phone] [id number] BARTOLOME LUGO Self - patient is the insured [facility] [address] [place] [phone] [id number] BARTOLOME LUGO Self - patient is the insured MEDICAL (GENERAL) HISTORY Medical History History ICD Code Osteoporosis Surgical History Surgery Date(Month/Year) partial hysterectomy 12 years ago bunion removed 15 years ago
== END 2024-09-02 14:34 | disposition home or self-care (01) ==
LOC: HO.LAB 14:33
PROVIDERS: PCP Internal Medicine
DX: R09.89 Other specified symptoms and signs involving the circulatory and respiratory systems (principal)
CPT/HCPCS: 0241U

== ENCOUNTER 2024-09-10 08:49 | Outpatient (REF) | payer MEDICARE, OTHER, SELFPAY ==
[2024-09-10 17:02] LABS: Appearance Urine Clear; Color Urine Yellow; Glucose Urine UA Negative (Negative); Leukocyte Esterase Urine Trace (Negative); Nitrite Urine Negative (Negative); Specific Gravity - Urine 1.015 (1.005-1.025); UMIC TRIGGER UA YES; Urine Blood Negative (Negative); Urine Ketones Negative (Negative); Urine Protein Negative (Neg-Trace)
[2024-09-10 17:18] LABS: Bacteria Urine Trace (None Seen); Hyaline Casts Urine 0-2 /LPF (0-2); WBC Clumps Urine Present
== END 2024-09-10 08:50 | disposition home or self-care (01) ==
LOC: HO.LNP 08:49
PROVIDERS: PCP Internal Medicine; Visit Provider Urology
DX: N39.0 Urinary tract infection, site not specified (principal); R32 Unspecified urinary incontinence
CPT/HCPCS: 81001; 87086

== ENCOUNTER 2024-09-25 11:14 | Outpatient (AMB) | payer OTHER, SELFPAY ==
--- NOTE | 2024-09-25 11:23 | A.OFFVIS_ITS ---
Intake Visit Reasons: 3 month follow up Intake Note: Patient presents today for 3 month follow up visit on: recurrent uti Urology Medications: estrace cream Blood Thinner: none PVR:0ml Senior Enterprise Architect Required: No Accompanied by: Self / Same As Patient Allergies abaloparatide [From Tymlos] Adverse Reaction (Intermediate, Verified 09/25/24 12:01) Nausea Medication List - Last Reconciled 09/25/24 by ZAHRA Garrison calcium carbonate-vitamin D3 600 mg-5 mcg (200 unit) 1 tab PO DAILY estradiol 0.01%(0.1mg/gram) 2 grams vaginal 3XW 90 days Prolia (denosumab) 60 mg subcut [id number] NS vitamins A,C,U-tuhr-qhomqf 4,296 mcg-226 mg-90 mg (PreserVision AREDS) 1 cap PO BID HPI Comments Details: Kasandra Whitehead is a very pleasant 64-year-old female patient of Dr. Mercado. She has a past medical history of recurrent urinary tract infections and osteoporosis. She presents to the office today for follow-up. In discussion with the patient today she reports to be doing and feeling well. She reports compliance with Estrace cream as prescribed. She has been attending pelvic floor therapy and feels this has been going very well. Patient was scheduled for urodynamics however given equipment issues she has been rescheduled. She currently denies any bothersome urinary issues or concerns. In office urinalysis results reviewed with the patient today. PVR 0 mL. Previous workup has included bladder ultrasound 01/30 noting the bladder is well distended. Moderate diffuse irregularity in borderline thickening of the bladder wall. Bladder jets are demonstrated. Pre void bladder volume is approximately 385 mL. Postvoid bladder volume is approximately 10 mL. When asked she denies any history of bowel issues. She denies flank pain, fever, and or chills. She otherwise offers no other issues or concerns at this time. Urine Culture 01/30: E.Coli, 01/30 mixed bacteria, 07/02 mixed bacteria PFSH Medical History COVID-19 vaccine series completed Recurrent UTI Osteoporosis Surgical History History of operative procedure on lumbosacral spinal structure H/O colonoscopy H/O breast biopsy History of bunionectomy Hx of hysterectomy Family History Father Pancreatic cancer Mother HTN (hypertension) Osteoporosis Sister Parkinson disease Other Cancer Social History Housing: House Alcohol intake: current Alcohol intake frequency: a few times a week Alcohol type: wine Comment: glass 2-3 s a week Patient Tobacco Use Status: Never used Tobacco e-Cigarette/Vaping Use: Never Used Second Hand Smoke Exposure: No service: No Current occupational status: retired Cognitive needs: No Hearing needs: No Vision needs: Yes Review of Systems Const All systems reviewed & are unremarkable except as noted in HPI and below Physical Exam Const General: cooperative, healthy appearing, comfortable, no acute distress, well developed, alert and awake Orientation/consciousness: patient oriented x3 Limitations: no limitations HEENT Head: Yes normal to inspection, Yes normocephalic and Yes atraumatic Ears: hearing grossly normal bilaterally Eyes General: appearance normal, both eyes and all related structures Neck Neck: Yes normal visual inspection and Yes trachea midline Chest Chest palpation & inspection: normal inspection of the chest Resp Effort & Inspection: normal respiratory effort and able to speak in complete sentences Cardio Rate: regular rate GI Inspection: Yes normal to inspection General: Yes no CVA tenderness Back/Spine/Pelvis Back: no CVA tenderness Skin General skin exam: no rashes or lesions noted Neuro General: patient oriented x3 Extrem General: Yes normal to inspection Psych Appearance: grossly normal and well kempt Mental Status: mental status grossly normal Speech and movement: Normal speech and movement present and Clear speech present Affect: normal affect Attitude: cooperative Thought process: Normal thought process present Thought content: Normal thought content present Insight: Fair insight present (Psych) Judgement: Fair judgement present (Psych) Results AMB Urinalysis, Automated UA Leukoctes 0 Florian/uL Last Edit by Alicia Toney on 09/25/24 11:35 UA Nitrite Negative Last Edit by Crystal Toney on 09/25/24 11:35 UA Urobilinogen 3.5 mg/dL Last Edit by Crystal Toney on 09/25/24 11:35 UA Protein 0 mg/dL Last Edit by Crystal Toney on 09/25/24 11:35 UA pH 7.0 Last Edit by Crystal Toney on 09/25/24 11:35 UA Blood 0 Edd/uL Last Edit by Crystal Toney on 09/25/24 11:35 UA Specific Bumpass 1.005 Last Edit by Crystal Toney on 09/25/24 11:35 UA Ketone Negative Last Edit by Crystal Toney on 09/25/24 11:35 UA Bilirubin 0 mg/dL Last Edit by Crystal Toney on 09/25/24 11:35 UA Glucose 0 mg/dL Last Edit by Crystal Toney on 09/25/24 11:35 Results Reviewed Results Reviewed: Laboratory Last Values Urine pH (Auto) 7.0 09/25/24 11:17 Specific Bumpass (Auto) 1.005 09/25/24 11:17 Urine Protein (Auto) 0 mg/dL 09/25/24 11:17 Glucose (UA)(Auto) 0 mg/dL 09/25/24 11:17 Urine Ketones (Auto) Negative 09/25/24 11:17 Urine Blood (Auto) 0 Edd/uL 09/25/24 11:17 Urine Nitrite (Auto) Negative 09/25/24 11:17 Urine Bilirubin (Auto) 0 mg/dL 09/25/24 11:17 Urine Urobilinogen (Auto) 3.5 mg/dL 09/25/24 11:17 Leukocyte Esterase (Auto) 0 Florian/uL 09/25/24 11:17 Assessment & Plan Assessment & Plan (1) Urinary incontinence: Code(s): R32 - Unspecified urinary incontinence Category: Medical (2) Bladder wall thickening: Code(s): N32.89 - Other specified disorders of bladder Category: Medical (3) Recurrent UTI: Code(s): N39.0 - Urinary tract infection, site not specified Category: Medical Plan In office urinalysis results reviewed the patient today; as noted above. PVR 0 mL. She denies having had any UTIs and or UTI like symptoms since her last office visit here. Continue Estrace cream. Continue pelvic floor therapy. She currently denies any bothersome urinary issues or concerns. Will reschedule for urodynamics once available. Discussed UTI prevention with D mannose supplement, vitamin-C, increasing fluid intake, behavioral therapy with timed voiding, perineal hygiene and postcoital voiding, and management of constipation with stool softeners and increased fiber intake. Follow-up in 3 months with PVR; or sooner with any issues, concerns, and or questions. Orders: Orders AMB Post Void Residual by ultrasound Today R32 - Unspecified urinary incontinence AMB Urinalysis Automated Today Z13.9 - Encounter for screening, unspecified Patient Instructions: The patient had an opportunity to ask questions regarding the treatment plan. All questions were answered. Physical exam, labs, and imaging were discussed and reviewed in detail. As well as risks, benefits, and discussion of treatment choices. No major barriers to understanding were identified. The patient expressed understanding and agreement with the above treatment plan. The patient was made aware they should contact our office by phone for worsening of their current condition, the appearance of new symptoms, or with any questions or concerns. Compliance is encouraged with any medications and follow up testing that is ordered. It is a privilege to be allowed the opportunity to participate in? your urological care.? Again, if you have any questions or concerns If you have any questions or concerns please do not hesitate to contact me. The office is [phone]. This note is constructed using voice recognition software. While every effort has been made to ensure accuracy operations clerk errors may have been included. Yours sincerely, ZAHRA Garrison Coding Level of Care Code Est Pt Level 3 (40097) Diagnoses Urinary incontinence R32 Bladder wall thickening N32.89 Recurrent UTI N39.0
--- OUTSIDE RECORDS SUMMARY | 2024-09-25 13:42 | XMS_ITS | Patient Health Record ---
Author Organization [facility] Address [address] [place] [address] Care Team Providers Care Stripper Latex Name Role Phone Lina Mercado MD Primary Care Provider Johnny Lawler Jr Unavailable [phone] Allergies No Known Allergies Reason For Referral No Information Medications Medication SIG (Take, Route, Frequency, Duration) Notes [...] the procedure for 1 day 04/05/2021 Active Immunizations Vaccine Route Administration Date Status Comme nts Influenza Unknown 04/05/2021 Administered Social History Tobacco Use: Social History Observation Description Date Details (start date - stop date) Never Smoker NA - NA Tobacco Use/Smoking Question Answer Notes Patient is [...] drinks (0 point) Points 3 Interpretation Positive Problems Problem Type SNOMED Code ICD Code Onset Dates Problem Status W/U Status Risk Notes Problem 633149005 Colon cancer screening (Z12.11) Active confirmed Problem [id number] Encounter for other preprocedural examination (Z01.818) Active confirmed Plan Of Treatment Pending Test Test Name Order Date COLONOSCOPY 04/13/2011 Future Test Test Name Order Date COLONOSCOPY 04/05/2021 Insurance Providers Payer Name Payer Address Payer Phone Subscriber Number Group Number Insured Name Patient Relationship to Insured Coverage Start Date Coverage End Date [facility] [address] [place] [address] [phone] [id number] BARTOLOME LUGO Self - patient is the insured [facility] INDEMNITY [address] [place] [phone] [id number] BARTOLOME LUGO Self - patient is the insured Medical (General) History Medical History History ICD Code Osteoporosis Surgical History Surgery Date(Month/Year) partial hysterectomy 12 years ago bunion removed 15 years ago
== END 2024-09-25 12:01 | disposition home or self-care (01) ==
LOC: HO.HUSH 11:14
PROVIDERS: PCP Internal Medicine; Visit Provider Nurse Practitioner Family
DX: R32 Unspecified urinary incontinence (principal); N32.89 Other specified disorders of bladder; N39.0 Urinary tract infection, site not specified; Z13.9 Encounter for screening, unspecified
CPT/HCPCS: 99213

== ENCOUNTER → 2024-09-25 11:14 | Outpatient (BNVA) | payer OTHER, SELFPAY | PROVIDERS: PCP Internal Medicine; Visit Provider Nurse Practitioner Family | DX: R32 Unspecified urinary incontinence (principal); N32.89 Other specified disorders of bladder; N39.0 Urinary tract infection, site not specified | CPT/HCPCS: 51798; 81003 ==

== ENCOUNTER 2024-10-01 06:04 | Outpatient (REF) | payer MEDICARE, OTHER, SELFPAY ==
[2024-10-01 06:24] LABS: MANUAL DIFF FLAG NO
[2024-10-01 07:20] LABS: Basophils Percent Auto 0.8 % (0-2); Eosinophils Absolute Auto 0.3 X10*3/uL (0.0-0.4); Eosinophils Percent Auto 5.6 % (0-4); Hematocrit 48.4 % (37.0-47.0); Hemoglobin 16.3 g/dl (12.0-16.0); Imm Gran Abs Auto 0.02 X10*3/uL (0.00-0.03); Imm Gran Pct Auto 0.4 % (0.0-0.4); Lymphocytes Absolute Auto 1.7 X10*3/uL (1.2-4.9); Lymphocytes Percent Auto 31.6 % (20-40); Mean Corpuscular HGB Conc 33.7 g/dl (31.0-35.0); Mean Platelet Volume 10.1 fL (9.4-12.3); Monocytes Absolute Auto 0.4 X10*3/uL (0.1-1.2); Monocytes Percent Auto 8.1 % (2-11); Neutrophils Absolute Auto 2.8 x10*3/uL (2.0-8.3); Neutrophils Percent Auto 53.5 % (45-73); Platelet Count 368 X10*3/uL (160-400); Red Blood Count 5.44 X10*6/uL (4.20-5.50); Red Cell Distribution Width 14.1 % (11.0-16.0); White Blood Count 5.3 X10*3/uL (4.8-10.8)
[2024-10-01 07:30] LABS: Appearance Urine Clear; Color Urine Yellow; Glucose Urine UA Negative (Negative); Leukocyte Esterase Urine Negative (Negative); Nitrite Urine Negative (Negative); PH 5.5 (5.0-9.0); Specific Gravity - Urine 1.015 (1.005-1.025); Urine Blood Negative (Negative); Urine Ketones Negative (Negative); Urine Protein Negative (Neg-Trace)
[2024-10-01 07:42] LABS: Bacteria Urine None Seen (None Seen); Hyaline Casts Urine 0-2 /LPF (0-2); RBC Urine 0-2 /HPF (0-2); Squamous Epithelial Cell Urine 0-2 /HPF (0-2); WBC Urine 0-5 /HPF (0-5)
[2024-10-01 07:53] LABS: Alanine Aminotransferase 26 U/L (0-31); Albumin Level 4.4 g/dL (3.5-5.0); Alkaline Phosphatase 38 U/L (39-117); Anion Gap 10 (12-20); Aspartate Amino Transferase 29 U/L (5-31); Bilirubin Total 0.7 mg/dL (0.0-1.0); Blood Urea Nitrogen 22 mg/dL (9-16); Carbon Dioxide 27 mmol/L (22-29); Chloride 111 mmol/L (96-108); Cholesterol 229 mg/dL (<200); Estimated Glomerular Filt Rate > 60; Glucose Random 88 mg/dL (60-115); HDL Cholesterol 78 mg/dL (>40); LDL Cholesterol Calculated 135 mg/dL (<100); Potassium 4.2 mmol/L (3.3-5.1); Sodium 144 mmol/L (135-145); Triglycerides 84 mg/dL (<150)
[2024-10-01 08:11] LABS: Free T4 (Free Thyroxine) 0.93 ng/dL (0.71-1.85); Thyroid Stimulating Hormone 3.48 uIU/mL (0.32-4.0); Vitamin D 25-OH Total 49.4 ng/mL (>30)
[2024-10-01 08:21] LABS: Folate 6.1 ng/mL (> or = 4.0); Vitamin B12 273 pg/mL (200-900)
== END 2024-10-01 06:05 | disposition home or self-care (01) ==
LOC: HO.LAB 06:04
PROVIDERS: Urology; PCP Internal Medicine; Visit Provider Internal Medicine
DX: R32 Unspecified urinary incontinence (principal); N39.0 Urinary tract infection, site not specified; E78.00 Pure hypercholesterolemia, unspecified
CPT/HCPCS: 36415; 80053; 80061; 81001; 82306; 82607; 82746; 84439; 84443; 85025; 87086

== ENCOUNTER 2024-10-08 14:30 | Outpatient (AMB) | payer MEDICARE, OTHER, SELFPAY ==
--- NOTE | 2024-10-08 15:00 | A.OFFPC_ITS ---
Vital Signs 10/08/24 15:01 10/08/24 15:41 Height 5 ft 6 in Weight 132 lb 8 oz BMI 21.4 BP 120/74 Blood Pressure Location Lt brachial Position Sitting Pulse 69 Pulse Source Pulse Oximeter Temp 97.3 F Temp Source Temporal Artery Scan Pulse Oximetry (%) 94 98 Oxygen Delivery Method Room Air Intake Visit Reasons: annual exam Intake Note: Patient is here today for a physical. 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 Required: No Reconditioner: Not Required per policy Accompanied by: Self / Same As Patient Allergies abaloparatide [From Tymlos] Adverse Reaction (Intermediate, Verified 10/08/24 15:00) Nausea Medication List - Last Reconciled 10/08/24 by Lina Mercado MD calcium carbonate-vitamin D3 600 mg-5 mcg (200 unit) 1 tab PO DAILY estradiol 0.01%(0.1mg/gram) 2 grams vaginal 3XW 90 days Prolia (denosumab) 60 mg subcut A6EALCHY NS vitamins A,C,V-nglz-bjagbw 4,296 mcg-226 mg-90 mg (PreserVision AREDS) 1 cap PO BID Tobacco use date assessed: 10/08/24 Fall risk assessment: No Falls in past year Last assessed Fall Risk: 10/08/24 Dental Screening Dental Screen Date: 10/08/24 Did you have a dental visit in the last 12 months?: Yes Did you have a dental problem in the last 6 months where you did not have access to dental care?: No Was dental information given to patient?: Patient has dentist [facility] Medical History (Reviewed 09/25/24 @ 12:03 by [facility] COVID-19 vaccine series completed Recurrent UTI Osteoporosis Surgical History History of operative procedure on lumbosacral spinal structure H/O colonoscopy H/O breast biopsy History of bunionectomy Hx of hysterectomy Family History (Updated 10/08/24 @ 15:43 by Lina Mercado MD) Father Pancreatic cancer Mother HTN (hypertension) Osteoporosis Sister Parkinson disease Lymphoma Other Cancer Social History (Updated 10/08/24 @ 15:43 by Lina Mercado MD) Housing: House Alcohol intake: current Alcohol intake frequency: a few times a week Alcohol type: wine Comment: 5 oz glass 2-3 s a week Patient Tobacco Use Status: Never used Tobacco e-Cigarette/Vaping Use: Never Used Second Hand Smoke Exposure: No service: No Current occupational status: retired Cognitive needs: No Hearing needs: No Vision needs: Yes Questionnaire PHQ-9 Over the last 2 weeks, how often have you been bothered by any of the following problems? 1. Little interest or pleasure in doing things: not at all 2. Feeling down, depressed, or hopeless: not at all 3. Trouble falling or staying asleep, or sleeping too much: not at all 4. Feeling tired or having little energy: not at all 5. Poor appetite or overeating: not at all 6. Feeling bad about yourself - or that you are a failure or have let yourself or your family down: not at all 7. Trouble concentrating on things, such as reading the newspaper or watching television: not at all 8. Moving or speaking so slowly that other people could have noticed. Or the opposite - being so fidgety or restless that you have been moving around a lot more than usual: not at all 9. Thoughts that you would be better off or of hurting yourself in some way: not at all Total score: 0 Depression Screening Interpretation: Negative Depression Screening Done: Yes Source: Developed by Drs. Tim John, Ellen Peacock, Jose Espino and colleagues, with an educational ibis from [employer]. Thrive Questionnaire Date Thrive assessed: 10/08/24 I am a: Patient What is your living situation today?: I have a steady place to live Within the past 12 months, did the food you bought not last and you didn't have the money to get more?: Never true Within the past 12 months, did you worry whether your food would run out before you got money to buy more?: Never true Do you have trouble paying for medicines?: No Do you have trouble getting transportation to medical appointments?: No Do you have trouble paying your heating and electricity bill?: No Do you have trouble taking care of your child, family member or friend?: No Do you have trouble with day-to-day activities such as bathing, preparing meals, shopping, managing finances, etc.?: No Are you currently unemployed and looking for a job?: No Are you interested in more education?: No Please select the resources that you would like help with: None Currently or been in a relationship where the following occur: No concerns reported THRIVE Score: 0 AUDIT C Alcohol Use Questionnaire (AUDIT-C) 1. How often do you have a drink containing alcohol?: 2-3 times a week 2. How many drinks containing alcohol do you have on a typical day when you are drinking?: 1 or 2 3. How often do you have six or more drinks on one occasion?: Never Total Score: 3 NANETTE-7 AMB Questionnaire NANETTE-7 Date NANETTE - 7 assessed: 10/08/24 Feeling nervous, anxious, or on edge: 0 = Not at all Not being able to stop or control worryin = Not at all Worrying too much about different things: 0 = Not at all Trouble relaxin = Not at all Being so restless that it is hard to sit still: 0 = Not at all Becoming easily annoyed or irritable: 0 = Not at all Feeling afraid as if something awful might happen: 0 = Not at all Total NANETTE-7 score (0-4 normal; 5-9 mild; 10-14 moderate; 15-21 severe): 0 Source: Developed by Drs. Tim John, Ellen Peacock, Jose Espino and colleagues, with an educational ibis from [employer]. Review of Systems Const Denies poor appetite and Denies weakness Eyes Denies no additional complaints ENT Reports Normal hearing present, Denies dizziness, Denies nasal congestion, Denies tinnitus and Denies sore throat Card Denies chest pain, Denies syncope, Denies rapid heart rate and Denies dyspnea Resp Denies cough and Denies dyspnea GI Denies change in stool character, Reports constipation, Denies diarrhea, Denies nausea and Denies vomiting Denies urinary frequency, Denies difficulty voiding and Denies dysuria Neuro Reports Normal hearing present, Denies confusion, Denies dizziness, Denies syncope and Denies weakness Psych Denies confusion Physical exam (Primary Care) Vital Signs: Last Vital Signs Temp 97.3 F 10/08/24 15:01 Pulse 69 10/08/24 15:01 BP 120/74 10/08/24 15:01 Pulse Ox 98 10/08/24 15:41 Oxygen Delivery Method Room Air 10/08/24 15:01 BMI result Body Mass Index 21.4 Tobacco/Smoking Status: Tobacco use Status Tobacco use date assessed 10/08/24 10/08/24 15:05 Patient Tobacco Use Status Never used Tobacco 10/08/24 15:43 e-Cigarette/Vaping Use Never Used 10/08/24 15:43 PHQ-9: PHQ-9 Score PHQ-9: Total score 0 10/08/24 16:09 Depression Screening Interpretation: Negative Thrive Assessment: Date of Thrive Assessment Date Thrive assessed 10/08/24 10/08/24 15:05 Currently or been in a relationship where the following occur: No concerns reported Const General: No confusion Orientation/consciousness: No confusion HENMT Head: Yes normocephalic Ears: external ears normal and TM's normal bilaterally Face and sinus: Yes normal facial exam Mouth: moist mucous membranes Throat: Yes tonsils normal Eyes Conjunctivae: conjunctivae normal Pupils: Equal, round and reactive pupils present and Pupil accommodation reflex normal Direct Ophthalmoscopy: normal light reflex Neck Neck: No lymphadenopathy Thyroid: Thyroid normal Chest Chest palpation & inspection: normal inspection of the chest Resp Effort & Inspection: normal respiratory effort and no audible wheezes Auscultation: clear to auscultation bilaterally, no crackles, no wheezes and lung sounds not diminished Cardio Rate: regular rate Rhythm: regular rhythm Peripheral pulses: radial pulses present and dorsalis pedis present GI Palpation (GI): no masses Auscultation: normal bowel sounds and normoactive bowel sounds Rectal Exam - Female: deferred Skin General skin exam: no rashes or lesions noted Rashes: no rashes Neuro General: No confusion Cranial nerves: Yes Equal, round and reactive pupils present and Yes Normal hearing present Cognition (Neuro): normal cognition Gait exam (Neuro): Normal gait present Motor exam (neuro): 5/5 motor strength present throughout Deep tendon reflexes (DTR's): Right brachioradialis reflex intensity grade: 2+, Left brachioradialis reflex intensity grade: 2+, Right patellar reflex intensity grade: 2+ and Left patellar reflex intensity grade: 2+ Extrem General: No edema Immunizations pneumoc 20-asa conj-dip cr(PF) 0.5 mL IM syringe Performing Provider: Lina Mercado MD [facility] Administered by: LYN Gonzalez on 10/08/24 16:09 Dose Route Admin Location Dispensed Lot Number Expiration Date NDC Nuclear Medicine Technician 0.5 mL IM Right Deltoid 0.5 mL [id number] 08/10/25 [employer] Android VIS Given Date VIS Provided VIS Publication Date 10/08/24 Single Vaccine 21 Eligibility Eligibility Date Funding Source Not [facility] Eligible 10/08/24 Private Coding Level of Care Code Est Pt Prev Care >65y(51906) Diagnoses Annual physical exam Z00.00 Age-related osteoporosis without current pathological fracture M81.0 Osteoporosis type: age-related Presence of current pathological fracture: without current pathological fracture Recurrent UTI N39.0 Hypercholesterolemia E78.00 Assessment & Plan Assessment & Plan (1) Annual physical exam: Code(s): Z00.00 - Encounter for general adult medical examination without abnormal findings Category: Medical Plan: Patient is advised to eat healthy, keep well hydrated, keep active and have adequate sleep. (2) Osteoporosis: Comment: Alendronate: February 2019- 12/2023 without improvement Tymlos 12/2023. Discontinued after a few doses due to significant nausea and dizziness Prolia started 01/2024 Code(s): M81.0 - Age-related osteoporosis without current pathological fracture Category: Medical Qualifiers: Osteoporosis type: age-related Presence of current pathological fracture: without current pathological fracture Qualified Code(s): M81.0 - Age- related osteoporosis without current pathological fracture Plan: Patient has been seen by Rheumatology and started on Prolia February 2024 (3) Recurrent UTI: Code(s): N39.0 - Urinary tract infection, site not specified Category: Medical Plan: Patient has been seen by Urology and has treated conservatively (4) Hypercholesterolemia: Code(s): E78.00 - Pure hypercholesterolemia, unspecified Category: Medical Plan: Avoid fried foods, chicken skin, eggs, butter margarine, pastries and meat. Be it pork or beef they have a lot of cholesterol LDL goal of less than 130 and triglyceride of less than 150 Plan History of Present Illness The patient is a 64-year-old female presenting for an annual physical examination. She reports a history of osteoporosis treated with alendronate from 6258-3967, Timlos in December 2023, and currently with Prolia since January 2024. Despite previous therapies, symptoms have persisted. The exploration of peripheral neuropathy details tingling, numbness, and leg pain triggered by certain activities, such as stretching. The patient has been seen by urology due to bladder wall thickening and advised on pelvic floor exercises and UTI prevention, utilizing D-mannose supplements, vitamin C, and increased fluid intake. Her mammogram and bone density screenings are current, with notable findings of minimal degenerative changes in the left sacroiliac joint from a May 2024 MRI. The patient?s lab results from September 2024 show a low B12 level of 273, with LDL slightly elevated at 135. The patient's family history includes pancreatic cancer in her father and lymphoma in a half-sister. Alcohol consumption is moderate at 2-3 times a week, with no smoking or recreational drug use reported. Her lumbar spine concerns are linked to mild to moderate multilevel degenerative changes, contributing to diagnosed lumbar radiculopathy. Although offered gabapentin for nerve pain management, the patient prefers non-pharmacological management for her symptoms. She remains interested in continued monitoring and evaluation of her ongoing health issues. Health Maintenance - Mammogram up to date as of August 2023 - Bone density testing completed in February 2023 - Last colonoscopy performed in April 2021 - Vitamin B12 supplementation advised due to level of 273 - Increased water intake recommended - Advised to continue with urological recommendations for UTI prevention - Cholesterol management with an LDL goal under 130 - Pneumonia vaccination recommended - COVID booster in the fall discussed Social History - Consumes alcohol 2-3 times per week, not on consecutive days - No tobacco or recreational drug use - Reports low physical activity due to discomfort from peripheral neuropathy - Family history of pancreatic cancer and lymphoma noted Review of Systems - Neurological: Reports tingling, numbness, and pain in legs - Genitourinary: Denies nocturia, reports past bladder wall thickening and recurrent UTIs - Respiratory: Denies any persistent respiratory issues - Musculoskeletal: Reports low back pain, no new injuries - Gastrointestinal: Denies any recent gastrointestinal disturbances Physical Exam General: Cooperative, healthy appearing, comfortable, no acute distress and well developed Orientation: Patient oriented x3 Limitations: No limitations Head: Normal to inspection Ears: Hearing grossly normal bilaterally, TM a little bit flat Nose: Normal external nose present Face and sinus: Normal facial exam Eyes: Appearance normal, both eyes and all related structures Neck: Normal visual inspection and Yes full ROM Respiratory: Normal respiratory effort and able to speak in complete sentences. Clear to auscultation bilaterally. Oxygen saturation noted at 94% Cardiovascular: Regular rate and rhythm. Normal S1 and S2 GI: Normal to inspection. Soft to palpation and nontender Skin: No rashes or lesions noted Neuro: Patient oriented x3 Extremities: Normal to inspection, patient reports tingling and numbness in legs, lumbar radiculopathy noted, mild to moderate multilevel degenerative changes, mild neural foraminal stenosis on the right Results - Labs: Low Vitamin B12 (273), elevated LDL cholesterol (135) - Previous imaging: MRI showing minimal degenerative changes in the left sacroiliac joint in May 2024 Plan The patient's management plan includes several milian aspects addressing both chronic conditions and preventative care. For osteoporosis, she continues with Prolia and has been counseled on the potential adverse effects experienced with prior medications. Peripheral neuropathy is being managed with an initiation of gabapentin at bedtime to ease nerve-related discomfort. She has been advised on lifestyle adjustments and dietary changes to address hypercholesterolemia and an elevated LDL level. Increasing hydration and supplementation was recommended to counter current lab abnormalities. All preventative screenings and immunizations are up-to-date except for the pneumonia vaccine, which was planned. The patient is to follow up in three months for repeat lab work, including blood counts and thyroid function, to closely monitor health status and address any arising c oncerns. Potential COVID vaccination in the fall was also discussed to enhance immunity during high-risk periods. Patient was informed and verbally consented to the use of an ambient scribe for clinic note documentation during this visit. Discussion Notes I discussed the management plan, including continued use of Prolia for osteoporosis, and encouraged adherence given previous adverse reactions to other medications. Gabapentin was reintroduced for neuropathic pain management, initially at a low dose, to anticipate gradual effectiveness. I counseled the patient on dietary regulation and increased fluid consumption to address elevated LDL levels and signs of dehydration. B12 supplementation was recommended due to deficiency. For vaccinations, emphasis was placed on the pneumococcal vaccine. The option of receiving the COVID booster in the fall was proposed based on current vaccination timing and personal comfort following prior COVID vaccine reactions. Anticipatory guidance for urine output increase, avoidance of aggravating activities, and her heightened awareness regarding family cancer history was reinforced. The follow-up plan includes repeat thyroid and blood count evaluations in three months to assess ongoing health concerns. Patient Instructions - Continue with Prolia treatment as prescribed. - Start gabapentin at bedtime to help manage leg pain. - Follow dietary recommendations to aid LDL cholesterol control. - Increase daily water intake to stay hydrated. - Purchase and start [id number] vitamin B12 supplements. - Receive the pneumonia vaccine at a pharmacy. - Monitor any changes in health or symptoms and schedule follow-ups as discussed. - Stay informed and consider the COVID booster in the fall. - Notify if symptoms worsen or if new health concerns arise. - Maintain regular check-ups and continue preventive screenings. Orders: Orders Free T4 (Free Thyroxine) 3 Months M402.02 - Other spondylosis with radiculopathy, lumbosacral region Pneumococcal 20 Immunization Today Z23 - Encounter for immunization Complete Blood Count Auto Diff 3 Months M402.02 - Other spondylosis with radiculopathy, lumbosacral region Thyroid Stimulating Hormone 3 Months M402.02 - Other spondylosis with radiculopathy, lumbosacral region Medications: New gabapentin 100 mg PO BEDTIME 90 caps 1RF - Other spondylosis with radiculopathy, lumbosacral region
[2024-10-08 15:01] VITALS: BP 120/74; PULSE 69; TEMP 36.3; O2SAT 94; BMI 21.4
[2024-10-08 15:41] VITALS: O2SAT 98
--- OUTSIDE RECORDS SUMMARY | 2024-10-08 17:21 | XMS_ITS | Patient Health Record ---
Author Organization [facility] Address [address] [place] [address] Care Team Providers Care Drapery Operator Name Role Phone Lina Mercado MD Primary Care Provider Johnny Lawler Jr Unavailable [phone] Allergies No Known Allergies Reason For [...] Problem Status W/U Status Risk Notes Problem [id number] Colon cancer screening (Z12.11) Active confirmed Problem [id number] Encounter for other preprocedural examination (Z01.818) Active confirmed Plan Of Treatment Pending Test Test Name Order Date COLONOSCOPY 04/13/2011 Future Test Test Name Order Date COLONOSCOPY 04/05/2021 Insurance Providers Payer Name Payer Address Payer Phone Subscriber Number Group Number Insured Name Patient Relationship to Insured Coverage Start Date Coverage End Date [facility] [address] [place] [address] [phone] [id number] BARTOLOME LUGO Self - patient is the insured [facility] IN[facility]MNITY [address] [place] [phone] [id number] BARTOLOME LUGO Self - patient is the insured Medical (General) History Medical History History ICD Code Osteoporosis Surgical History Surgery Date(Month/Year) partial hysterectomy 12 years ago bunion removed 15 years ago
== END 2024-10-08 16:11 | disposition home or self-care (01) ==
LOC: HO.HMCH 14:31
PROVIDERS: PCP Internal Medicine; Visit Provider Internal Medicine
DX: Z00.00 Encounter for general adult medical examination without abnormal findings (principal); M81.0 Age-related osteoporosis without current pathological fracture; N39.0 Urinary tract infection, site not specified; E78.00 Pure hypercholesterolemia, unspecified; Z23 Encounter for immunization

== ENCOUNTER → 2024-10-08 14:30 | Outpatient (BNVA) | payer MEDICARE, OTHER, SELFPAY | PROVIDERS: PCP Internal Medicine; Visit Provider Internal Medicine | DX: Z00.01 Encounter for general adult medical examination with abnormal findings (principal); Z23 Encounter for immunization; M81.0 Age-related osteoporosis without current pathological fracture; N39.0 Urinary tract infection, site not specified; E78.00 Pure hypercholesterolemia, unspecified | CPT/HCPCS: 90471; 90677; 99397 ==

== ENCOUNTER 2024-11-22 09:02 | Outpatient (RCR) | payer MEDICARE, OTHER, SELFPAY ==
--- NOTE | 2024-09-06 09:56 | MHC.PT.EP ---
[facility] [place] Office [place] Office [place] Office [address] Carina Bermudez [address] [phone] F: [phone] F: [phone] F: [phone] F: [phone] Physical Therapy Plan of Care Date of Evaluation: 09/06/24 Date of Surgery: Diagnosis: urinary incontinence, pelvic floor therapy (RL) Assessment: pt is a 64 y/o female presenting to physical therapy w/ referring diagnosis of urinary incontinence, pelvic floor therapy. Impairments include pain, decreased range of motion, decreased strength, impaired functional mobility, impaired postural awareness, and altered ambulation mechanics. pt is a good candidate for skilled PT due to age, potential remediation of impairments, typical disease/condition progression and prognosis, comorbidities, and motivation. pt would benefit from skilled PT intervention to provide a tailored strengthening and stretching exercise program, functional training, gait training, postural re-training, neuromuscular re-education, modalities as needed for pain, equipment safety demonstration. Frequency and Duration: The patient will be seen 1x/wk for 8 wks Short Term Goals: pt will be I w/ HEP to promote self-management of condition. Pt will report a fluid intake of at least 50 oz a day. Pt will decrease the type of pad or protection from maxipad to pantiliner. Alf Goals: Describe normal voiding frequency and patterns assessed via teachback method. Demonstrate behavioral techniques to help defer urgency assessed via teachback method and patient demonstration as appropriate. Coordinate pelvic floor with thoracic diaphragm/ functional activities to reduce incontinence episodes. Treatment Plan: Modalities to reduce pain, spasms and effusion. Manual therapy to restore motion and function. Therapeutic exercise to improve strength and flexibility. Neuromuscular re-education for posture and balance. Therapeutic activities to return to functional activities of daily living. Electronically signed by: Please sign and return to therapist. Thank you for your referral.
--- NOTE | 2024-12-24 10:50 | MHC.PT.DC ---
[facility] [place] Office [place] Office [place] Office [address] Carina Bermudez 140 [facility] [phone] F: [phone] F: [phone] F: [phone] F: [phone] Physical Therapy Discharge Report Diagnosis: urinary incontinence, pelvic floor therapy (RL) Date of Surgery: Date of Evaluation: 09/06/24 Date of Discharge: 12/24/24 Treatments to Date: 10 Cancellations to Date: 0 No Shows to Date: 0 Discharge Status: Improved Function Independent with HEP Discharge Summary: The patient is reporting an improvement of leakage when compared to the evaluation. She's down from completely filling up 2 maxipads a day to just partially 1 full maxipad a day. She is having no bowel incontinence. She is getting more natural bladder urges but this is still dependent on how much water she drinks which I encouraged was normal (previously she was getting no bladder urges). At this time, she feels she is happy with the progress she's made up to this point and wants to continue to work on her exercises on her own. I will keep her chart open for 30 days. If I do not hear from her in that time I will discharge the chart. Electronically signed by: Naomie Lewis PT, DPT Please sign and return to therapist. Thank you for your referral.
== END 2024-12-24 10:50 | disposition home or self-care (01) ==
LOC: HO.PT 09:02
PROVIDERS: PCP Internal Medicine; Visit Provider Nurse Practitioner Family
DX: R32 Unspecified urinary incontinence (principal)
CPT/HCPCS: 97110; 97112; 97140; 97162

== ENCOUNTER 2024-11-25 14:01 | Outpatient (AMB) | payer MEDICARE, OTHER, SELFPAY ==
--- OUTSIDE RECORDS SUMMARY | 2024-11-25 14:07 | XMS_ITS | Patient Health Record ---
Author Organization [facility] Address [address] [place] [address] Care Team Providers Care Counter Cutter Name Role Phone Lina Mercado MD Primary Care Provider Johnny Lawler Jr Unavailable [phone] Allergies No Known Allergies Reason For [...] Problem Status W/U Status Risk Notes Problem [id number] Colon cancer screening (Z12.11) Active confirmed Problem [id number] Encounter for other preprocedural examination (Z01.818) Active confirmed Plan Of Treatment Pending Test Test Name Order Date COLONOSCOPY 04/13/2011 Future Test Test Name Order Date COLONOSCOPY 04/05/2021 Insurance Providers Payer Name Payer Address Payer Phone Subscriber Number Group Number Insured Name Patient Relationship to Insured Coverage Start Date Coverage End Date [facility] [address] [place] [address] [phone] [id number] BARTOLOME LUGO Self - patient is the insured [facility] IN[facility]MN[facility] [address] [place] [phone] [id number] BARTOLOME LUGO Self - patient is the insured Medical (General) History Medical History History ICD Code Osteoporosis Surgical History Surgery Date(Month/Year) partial hysterectomy 12 years ago bunion removed 15 years ago
--- NOTE | 2024-11-25 15:07 | MHC.OFFVIS ---
Intake Visit Reasons: UDS Allergies abaloparatide [From Tymlos] Adverse Reaction (Intermediate, Verified 10/08/24 15:00) Nausea HPI Comments Details: Kasandra has an appointment already scheduled with Franci in December [facility] Medical History COVID-19 vaccine series completed Recurrent UTI Osteoporosis Surgical History History of operative procedure on lumbosacral spinal structure H/O colonoscopy H/O breast biopsy History of bunionectomy Hx of hysterectomy Family History (Updated 10/08/24 @ 15:43 by Lina Mercado MD) Father Pancreatic cancer Mother HTN (hypertension) Osteoporosis Sister Parkinson disease Lymphoma Other Cancer Social History (Updated 10/08/24 @ 15:43 by Lina Mercado MD) Housing: House Alcohol intake: current Alcohol intake frequency: a few times a week Alcohol type: wine Comment: 5 oz glass 2-3 s a week Patient Tobacco Use Status: Never used Tobacco e-Cigarette/Vaping Use: Never Used Second Hand Smoke Exposure: No service: No Current occupational status: retired Cognitive needs: No Hearing needs: No Vision needs: Yes Office Procedures Urodynamic Studies Consent Discussed risk and benefit or proposed procedure with the patient. Information consent for procedure given to the patient. Discussed technical aspects, risks, benefits and alternatives in full. Addressed all of the patient's questions and concerns regarding the procedure. The patient demonstrated knowledge and understanding. They wish to proceed with this procedure. Preparation The patient was prepped in the usual manner. A packer was present and in the room. Genitalia was prepped with betadine solution in a sterile manner. Procedure Complex Uroflow Complex uroflow performed by: Isaias Vyas Maximum urinary flow rate (mL/second): 23 Voiding time (seconds): 2min 15 seconds Voided volume (mL): 382 Residual urine (mL): 30ml Cystometrogram ? Vaginal/rectal catheter type: Vaginal First sensation at (mL): 39 mL First desire at (mL): 134 mL Strong desire to void occurred at (mL): 167 mL Strong desire detrusor pressure (cm H2O): 0.1 Maximum Capacity (mL): 296 mL Voiding Summary Voided with max detrusor pressure of (cm H2O): 81 Maximum flow rate (mL/second): 6.3mL/s Voided volume (mL): ? 75ml (Amount not accurate due to large amount leaking onto floor) Calculated PVR: Unable to determine Stress Testing Stress Test at 201 mL: Absent leak with Valsalva, Absent leak with cough DO Dry: Absent DO Wet: Absent Prep: The patient was prepped in the usual manner. A packer was present and in the room. Genitalia was prepped with betadine solution in a sterile manner. 31735-Alpzmggjugfhrz w/ REAL ESTATE OFFICE MANAGER 13555-Vsrypjv-Gckfiwkevglh 78610-Bkst/Urinary Muscle Study 75123-Rohrn-Iqvokoexx Pressure Test Procedure code (CPT) selection complete Office Meds nitrofurantoin monohydrate/macrocrystals 100 mg capsule Performing Provider: Isaias Vyas MD Performing Location[facility] Administered by: Lindsay Ascencio RN on 11/25/24 15:07 Dose Route Admin Location Dispensed Lot Number Expiration Date NDC Complex Case Manager 100 mg PO 1 cap Results AMB Urinalysis, Automated UA Leukoctes 0 Florian/uL Last Edit by Lindsay Ascencio RN on 11/25/24 15:19 UA Nitrite Negative Last Edit by Lindsay Ascencio RN on 11/25/24 15:19 UA Urobilinogen 3.5 mg/dL Last Edit by Lindsay Ascencio RN on 11/25/24 15:19 UA Protein 0 mg/dL Last Edit by Lindsay Ascencio RN on 11/25/24 15:19 UA pH 7.0 Last Edit by Lindsay Ascencio RN on 11/25/24 15:19 UA Blood 0 Edd/uL Last Edit by Lindsay Ascencio RN on 11/25/24 15:19 UA Specific [place] 1.00 Last Edit by Lindsay Ascencio RN on 11/25/24 15:19 UA Ketone Negative Last Edit by Lindsay Ascencio RN on 11/25/24 15:19 UA Bilirubin 0 mg/dL Last Edit by Lindsay Ascencio RN on 11/25/24 15:19 UA Glucose 0 mg/dL Last Edit by Lindsay Ascencio RN on 11/25/24 15:19 Results Reviewed Results Reviewed: Laboratory Last Values Urine pH (Auto) 7.0 11/25/24 15:17 Specific [place] (Auto) 1.00 11/25/24 15:17 Urine Protein (Auto) 0 mg/dL 11/25/24 15:17 Glucose (UA)(Auto) 0 mg/dL 11/25/24 15:17 Urine Ketones (Auto) Negative 11/25/24 15:17 Urine Blood (Auto) 0 Edd/uL 11/25/24 15:17 Urine Nitrite (Auto) Negative 11/25/24 15:17 Urine Bilirubin (Auto) 0 mg/dL 11/25/24 15:17 Urine Urobilinogen (Auto) 3.5 mg/dL 11/25/24 15:17 Leukocyte Esterase (Auto) 0 Florian/uL 11/25/24 15:17 Assessment & Plan Assessment & Plan Orders: Orders AMB Urinalysis Automated Today Z13.9 - Encounter for screening, unspecified AMB Urodynamics Studies Today R32 - Unspecified urinary incontinence Coding CPT Codes Urodynamic Studies - CPT: 67917-Xsqogspghxlpwk w/ REAL ESTATE OFFICE MANAGER ([id number]) Urodynamic Studies - CPT: 60975-Nnffkbq-Xbhxvfmmrxon ([id number]) Urodynamic Studies - CPT: 04877-Dnig/Urinary Muscle Study ([id number]) Urodynamic Studies - CPT: 41821-Dhudg-Doevttiqd Pressure Test ([id number])
== END 2024-11-25 15:37 | disposition home or self-care (01) ==
LOC: HO.HUSH 14:02
PROVIDERS: PCP Internal Medicine; Visit Provider Urology
DX: R32 Unspecified urinary incontinence (principal); Z13.9 Encounter for screening, unspecified
CPT/HCPCS: 51728; 51741; 51784; 51797

== ENCOUNTER → 2024-11-25 14:01 | Outpatient (BNVA) | payer MEDICARE, OTHER, SELFPAY | PROVIDERS: PCP Internal Medicine; Visit Provider Urology | DX: R32 Unspecified urinary incontinence (principal); N32.89 Other specified disorders of bladder; R39.15 Urgency of urination; N81.89 Other female genital prolapse | CPT/HCPCS: 51728; 51741; 51784; 51797; 81003 ==

== ENCOUNTER 2024-12-24 14:09 | Outpatient (AMB) | payer MEDICARE, OTHER, SELFPAY ==
--- NOTE | 2024-12-24 14:21 | A.OFFVIS_ITS ---
Intake Visit Reasons: 3 month Intake Note: Patient presents today for 3 month follow up Urology Medications: estrace cream Blood Thinner: none PVR:53ml Fabricator Foam Rubber Required: No Accompanied by: Self / Same As Patient Allergies abaloparatide [From Tymlos] Adverse Reaction (Intermediate, Verified 12/24/24 15:08) Nausea Medication List - Last Reconciled 12/24/24 by [facility]UELLEN [facility] calcium carbonate-vitamin D3 600 mg-5 mcg (200 unit) 1 tab PO DAILY estradiol 0.01%(0.1mg/gram) 2 grams vaginal 3XW 90 days Prolia (denosumab) 60 mg subcut [id number] NS vitamins A,C,F-qvdp-stefng 4,296 mcg-226 mg-90 mg (PreserVision AREDS) 1 cap PO BID HPI Comments Details: Kasandra Whitehead is a very pleasant 64-year-old female patient of Dr. Mercado. She has a past medical history of recurrent urinary tract infections and osteoporosis. She presents to the office today for follow-up. In discussion with the patient today she reports to be doing and feeling well. She reports compliance with Estrace cream as prescribed. She denies having had any bothersome urinary issues or concerns. She has a previous history of attending pelvic floor therapy and feels this has been helpful for lower urinary tract symptoms she had been experiencing. In office urinalysis results reviewed with the patient today. PVR 53 mL. She denies having had any UTIs and or UTI like symptoms. Previous workup has included bladder ultrasound 01/30 noting the bladder is well distended. Moderate diffuse irregularity in borderline thickening of the bladder wall. Bladder jets are demonstrated. Pre void bl adder volume is approximately 385 mL. Postvoid bladder volume is approximately 10 mL. When asked she denies any history of bowel issues. She denies flank pain, fever, and or chills. Patient underwent in office urodynamics that noted sensory urgency She otherwise offers no other issues or concerns at this time. Urine Culture 01/30: E.Coli, 01/30 mixed bacteria, 07/02 mixed bacteria [facility] Medical History COVID-19 vaccine series completed Recurrent UTI Osteoporosis Surgical History History of operative procedure on lumbosacral spinal structure H/O colonoscopy H/O breast biopsy History of bunionectomy Hx of hysterectomy Family History Father Pancreatic cancer Mother HTN (hypertension) Osteoporosis Sister Parkinson disease Lymphoma Other Cancer Social History Housing: House Alcohol intake: current Alcohol intake frequency: a few times a week Alcohol type: wine Comment: 5 oz glass 2-3 s a week Patient Tobacco Use Status: Never used Tobacco e-Cigarette/Vaping Use: Never Used Second Hand Smoke Exposure: No service: No Current occupational status: retired Cognitive needs: No Hearing needs: No Vision needs: Yes Review of Systems Const All systems reviewed & are unremarkable except as noted in HPI and below Physical Exam Const General: cooperative, healthy appearing, comfortable, no acute distress, well developed, alert and awake Orientation/consciousness: patient oriented x3 Limitations: no limitations HEENT Head: Yes normal to inspection, Yes normocephalic and Yes atraumatic Ears: hearing grossly normal bilaterally Eyes General: appearance normal, both eyes and all related structures Neck Neck: Yes normal visual inspection and Yes trachea midline Chest Chest palpation & inspection: normal inspection of the chest Resp Effort & Inspection: normal respiratory effort and able to speak in complete sentences Cardio Rate: regular rate GI Inspection: Yes normal to inspection General: Yes no CVA tenderness Back/Spine/Pelvis Back: no CVA tenderness Skin General skin exam: no rashes or lesions noted Neuro General: patient oriented x3 Extrem General: Yes normal to inspection Psych Appearance: grossly normal and well kempt Mental Status: mental status grossly normal Speech and movement: Normal speech and movement present and Clear speech present Affect: normal affect Attitude: cooperative Thought process: Normal thought process present Thought content: Normal thought content present Insight: Fair insight present (Psych) Judgement: Fair judgement present (Psych) Results AMB Urinalysis, Automated UA Leukoctes 0 Florian/uL Last Edit by Alicia Toney on 12/24/24 14:32 UA Nitrite Negative Last Edit by Alicia Toney on 12/24/24 14:32 UA Urobilinogen 3.5 mg/dL Last Edit by Alicia Toney on 12/24/24 14:32 UA Protein 0 mg/dL Last Edit by Alicia Toney on 12/24/24 14:32 UA pH 7.0 Last Edit by Alicia Toney on 12/24/24 14:32 UA Blood 0 Edd/uL Last Edit by Alicia Toney on 12/24/24 14:32 UA Specific [place] 1.005 Last Edit by Alicia Toney on 12/24/24 14:32 UA Ketone Negative Last Edit by Alicia Toney on 12/24/24 14:32 UA Bilirubin 0 mg/dL Last Edit by Alicia Toney on 12/24/24 14:32 UA Glucose 0 mg/dL Last Edit by Alicia Toney on 12/24/24 14:32 Results Reviewed Results Reviewed: Laboratory Last Values Urine pH (Auto) 7.0 12/24/24 08:25 Specific [place] (Auto) 1.005 12/24/24 08:25 Urine Protein (Auto) 0 mg/dL 12/24/24 08:25 Glucose (UA)(Auto) 0 mg/dL 12/24/24 08:25 Urine Ketones (Auto) Negative 12/24/24 08:25 Urine Blood (Auto) 0 Edd/uL 12/24/24 08:25 Urine Nitrite (Auto) Negative 12/24/24 08:25 Urine Bilirubin (Auto) 0 mg/dL 12/24/24 08:25 Urine Urobilinogen (Auto) 3.5 mg/dL 12/24/24 08:25 Leukocyte Esterase (Auto) 0 Florian/uL 12/24/24 08:25 Assessment & Plan Assessment & Plan (1) Urinary incontinence: Code(s): R32 - Unspecified urinary incontinence Category: Medical (2) Bladder wall thickening: Code(s): N32.89 - Other specified disorders of bladder Category: Medical (3) Recurrent UTI: Code(s): N39.0 - Urinary tract infection, site not specified Category: Medical Plan In office urinalysis results reviewed with the patient today; as noted above. PVR 53 mL. Continue Estrace cream as discussed and prescribed. She currently denies any bothersome urinary issues or concerns. She reports be happy with current voiding parameters. Will continue with surveillance monitoring. Discussed UTI prevention with D mannose supplement, vitamin-C, increasing fluid intake, behavioral therapy with timed voiding, perineal hygiene and postcoital voiding, and management of constipation with stool softeners and increased fiber intake. Follow-up in 6 months with PVR; or sooner with any issues, concerns, and or questions. Orders: Orders AMB Post Void Residual by ultrasound Today R32 - Unspecified urinary incontinence AMB Urinalysis Automated Today Z13.9 - Encounter for screening, unspecified Patient Instructions: The patient had an opportunity to ask questions regarding the treatment plan. All questions were answered. Physical exam, labs, and imaging were discussed and reviewed in detail. As well as risks, benefits, and discussion of treatment choices. No major barriers to understanding were identified. The patient expressed understanding and agreement with the above treatment plan. The patient was made aware they should contact our office by phone for worsening of their current condition, the appearance of new symptoms, or with any questions or concerns. Compliance is encouraged with any medications and follow up testing that is ordered. It is a privilege to be allowed the opportunity to participate in? your urological care.? Again, if you have any questions or concerns If you have any questions or concerns please do not hesitate to contact me. The office is [phone]. This note is constructed using voice recognition software. While every effort has been made to ensure accuracy site acquisition specialist errors may have been included. Yours sincerely, ZAHRA Garrison Coding Level of Care Code Est Pt Level 3 (24766) Complex EM visit Add On G2211 Diagnoses Urinary incontinence R32 Bladder wall thickening N32.89 Recurrent UTI N39.0
--- OUTSIDE RECORDS SUMMARY | 2024-12-24 16:21 | XMS_ITS | Patient Health Record ---
Author Organization [facility] Address [address] [place] [address] Care Team Providers Care Catalyst Recovery Operator Name Role Phone Lina Mercado MD Primary Care Provider Johnny Lawler Jr Unavailable Allergies No Known Allergies Reason For Referral [...] Problem Status W/U Status Risk Notes Problem [id number] Colon cancer screening (Z12.11) Active confirmed Problem [id number] Encounter for other preprocedural examination (Z01.818) Active confirmed Plan Of Treatment Pending Test Test Name Order Date COLONOSCOPY 04/13/2011 Future Test Test Name Order Date COLONOSCOPY 04/05/2021 Insurance Providers Payer Name Payer Address Payer Phone Subscriber Number Group Number Insured Name Patient Relationship to Insured Coverage Start Date Coverage End Date [facility] [address] [place] [address] [phone] [id number] BARTOLOME LUGO Self - patient is the insured [facility] [address] [place] [phone] [id number] BARTOLOME LUGO Self - patient is the insured Medical (General) History Medical History History ICD Code Osteoporosis Surgical History Surgery Date(Month/Year) partial hysterectomy 12 years ago bunion removed 15 years ago
== END 2024-12-24 15:00 | disposition home or self-care (01) ==
LOC: HO.HUSH 14:10
PROVIDERS: PCP Internal Medicine; Visit Provider Nurse Practitioner Family
DX: R32 Unspecified urinary incontinence (principal); N32.89 Other specified disorders of bladder; N39.0 Urinary tract infection, site not specified; Z13.9 Encounter for screening, unspecified
CPT/HCPCS: 99213

== ENCOUNTER → 2024-12-24 14:09 | Outpatient (BNVA) | payer OTHER, SELFPAY | PROVIDERS: PCP Internal Medicine; Visit Provider Nurse Practitioner Family | DX: R39.15 Urgency of urination (principal); N32.89 Other specified disorders of bladder; R32 Unspecified urinary incontinence; N39.0 Urinary tract infection, site not specified; M81.0 Age-related osteoporosis without current pathological fracture | CPT/HCPCS: 81003; 99212 ==

== ENCOUNTER 2024-12-31 12:43 | Outpatient (REF) | payer MEDICARE, OTHER, SELFPAY ==
[2024-12-31 13:15] LABS: MANUAL DIFF FLAG NO
[2024-12-31 13:34] LABS: Basophils Percent Auto 0.4 % (0-2); Eosinophils Absolute Auto 0.1 X10*3/uL (0.0-0.4); Eosinophils Percent Auto 1.8 % (0-4); Hematocrit 45.4 % (37.0-47.0); Imm Gran Abs Auto 0.03 X10*3/uL (0.00-0.03); Imm Gran Pct Auto 0.4 % (0.0-0.4); Lymphocytes Absolute Auto 1.8 X10*3/uL (1.2-4.9); Lymphocytes Percent Auto 26.9 % (20-40); Mean Corpuscular Hemoglobin 29.6 pg (27.0-33.0); Mean Corpuscular Volume 89.7 fL (80.0-98.0); Mean Platelet Volume 11.2 fL (9.4-12.3); Monocytes Absolute Auto 0.4 X10*3/uL (0.1-1.2); Monocytes Percent Auto 6.4 % (2-11); Neutrophils Absolute Auto 4.3 x10*3/uL (2.0-8.3); Neutrophils Percent Auto 64.1 % (45-73); Platelet Count 214 X10*3/uL (160-400); Red Blood Count 5.06 X10*6/uL (4.20-5.50); Red Cell Distribution Width 14.1 % (11.0-16.0); White Blood Count 6.7 X10*3/uL (4.8-10.8)
--- OUTSIDE RECORDS SUMMARY | 2024-12-31 14:16 | XMS_ITS | Patient Health Record ---
Author Organization [facility] Address [address] [place] [address] Care Team Providers Care School Fundraising Director Name Role Phone Lina Mercado MD Primary Care Provider Johnny Lawler Jr Unavailable [phone] Allergies No Known Allergies Reason For [...] Problem Status W/U Status Risk Notes Problem [id number] Colon cancer screening (Z12.11) Active confirmed Problem 008359096 Encounter for other preprocedural examination (Z01.818) Active confirmed Plan Of Treatment Pending Test Test Name Order Date COLONOSCOPY 04/13/2011 Future Test Test Name Order Date COLONOSCOPY 04/05/2021 Insurance Providers Payer Name Payer Address Payer Phone Subscriber Number Group Number Insured Name Patient Relationship to Insured Coverage Start Date Coverage End Date [facility] [address] [place] [address] [phone] [id number] BARTOLOME LUGO Self - patient is the insured [facility]MN[facility] [address] [place] [phone] [id number] BARTOLOME LUGO Self - patient is the insured Medical (General) History Medical History History ICD Code Osteoporosis Surgical History Surgery Date(Month/Year) partial hysterectomy 12 years ago bunion removed 15 years ago
[2024-12-31 14:26] LABS: Thyroid Stimulating Hormone 1.43 uIU/mL (0.32-4.0)
== END 2024-12-31 12:44 | disposition home or self-care (01) ==
LOC: HO.LAB 12:43
PROVIDERS: PCP Internal Medicine; Visit Provider Internal Medicine
DX: M47.27 Other spondylosis with radiculopathy, lumbosacral region (principal)
CPT/HCPCS: 36415; 84439; 84443; 85025

== ENCOUNTER 2025-01-08 11:14 | Outpatient (REF) | payer MEDICARE, OTHER, SELFPAY ==
--- OUTSIDE RECORDS SUMMARY | 2025-01-08 12:01 | XMS_ITS | Patient Health Record ---
Author Organization [facility] Address [address] [place] [address] Care Team Providers Care Research Asst Name Role Phone Lina Mercado MD Primary Care Provider Johnny Lawler Jr Unavailable [phone] Allergies No Known Allergies Reason For [...] Problem Status W/U Status Risk Notes Problem [id number] Colon cancer screening (Z12.11) Active confirmed Problem [id number] Encounter for other preprocedural examination (Z01.818) Active confirmed Plan Of Treatment Pending Test Test Name Order Date COLONOSCOPY 04/13/2011 Future Test Test Name Order Date COLONOSCOPY 04/05/2021 Insurance Providers Payer Name Payer Address Payer Phone Subscriber Number Group Number Insured Name Patient Relationship to Insured Coverage Start Date Coverage End Date [facility] [address] [place] [address] [phone] [id number] BARTOLOME LUGO Self - patient is the insured [facility] INDEMNITY [address] [place] [phone] [id number] BARTOLOME LUGO Self - patient is the insured Medical (General) History Medical History History ICD Code Osteoporosis Surgical History Surgery Date(Month/Year) partial hysterectomy 12 years ago bunion removed 15 years ago
[2025-01-08 12:50] LABS: Anion Gap 12 (12-20); Blood Urea Nitrogen 22 mg/dL (9-16); Calcium 9.4 mg/dL (8.4-10.2); Carbon Dioxide 27 mmol/L (22-29); Chloride 103 mmol/L (96-108); Estimated Glomerular Filt Rate > 60; Potassium 3.9 mmol/L (3.3-5.1); Sodium 138 mmol/L (135-145)
== END 2025-01-08 11:15 | disposition home or self-care (01) ==
LOC: HO.LAB 11:14
PROVIDERS: PCP Internal Medicine; Visit Provider Student in an Organized Health Care Education/Training Program
DX: M81.0 Age-related osteoporosis without current pathological fracture (principal); E55.9 Vitamin D deficiency, unspecified
CPT/HCPCS: 36415; 80048; 82306

== ENCOUNTER 2025-01-15 09:28 | Outpatient (AMB) | payer MEDICARE, OTHER, SELFPAY ==
--- NOTE | 2025-01-15 09:44 | A.OFFVIS_ITS ---
Vital Signs 01/15/25 09:48 Height 5 ft 6 in Weight 131 lb 6.328 oz BMI 21.2 BP 100/70 Blood Pressure Location Rt brachial Position Sitting Pulse 72 Pulse Source Pulse Oximeter Pulse Oximetry (%) 99 Oxygen Delivery Method Room Air Intake Visit Reasons: Osteoprosis Intake Note: Patient presents for Osteoporosis follow up. Allergies abaloparatide (From Tymlos) Adverse Reaction (Intermediate, Verified 01/15/25 09:48) Nausea HPI Comments Details: Patient is a 64 y.o. female with HLD and osteoporosis here today for follow up Interval History: Patient last seen 07/15/[address] Ohara - No complaints - No fractures or falls Today, Doing well No complaints Rheumatologic History: Osteoporosis Dx 2018 Alendronate: February 2019- 12/2023 without improvement Tymlos 12/2023. Discontinued after a few doses due to significant nausea and dizziness Prolia started 01/2024 Current Rheumatology Medication(s): Prolia 60mg SC every 6 months PFSH Medical History COVID-19 vaccine series completed Recurrent UTI Osteoporosis Surgical History History of operative procedure on lumbosacral spinal structure H/O colonoscopy H/O breast biopsy History of bunionectomy Hx of hysterectomy Family History Father Pancreatic cancer Mother HTN (hypertension) Osteoporosis Sister Parkinson disease Lymphoma Other Cancer Social History Housing: House Alcohol intake: current Alcohol intake frequency: a few times a week Alcohol type: wine Comment: 5 oz glass 2-3 s a week Patient Tobacco Use Status: Never used Tobacco e-Cigarette/Vaping Use: Never Used Second Hand Smoke Exposure: No service: No Current occupational status: retired Cognitive needs: No Hearing needs: No Vision needs: Yes Review of Systems Const Details: Review of Systems Constitutional: Denies fever, chills, weight loss ENT: Denies vision changes, eye pain or eye redness, dental caries, dry mouth GI: Denies nausea, vomiting, diarrhea, abdominal pain, change in BM Pulm: Denies SOB, AMADO, hemoptysis, wheezing Cards: Denies chest pain, palpitations Skin: Denies Raynaud's, rash, nail changes, photosensitivity, ASSEMBLING FABRICATOR: Denies headaches, weakness, paresthesias, recurrent falls MSK: as per HPI All other systems reviewed and are unremarkable except noted above Physical Exam Vital Signs: Last Vital Signs Pulse 72 01/15/25 09:48 BP 100/70 01/15/25 09:48 Pulse Ox 99 01/15/25 09:48 Oxygen Delivery Method Room Air 01/15/25 09:48 BMI result Body Mass Index 21.2 Vital signs reviewed Physical Examination CONSTITUITIONAL Patient alert and cooperative. Well appearing and in no apparent painful distress HEENT Conjunctiva and sclera clear. No lymphadenopathy. CHEST/RESPIRATORY SYSTEM Normal respiratory effort and able to speak in complete sentences. Clear to auscultation bilaterally. No crackles, rales, rhonchi, wheezes heard. CARDIAC SYSTEM Regular rate and rhythm. S1 and S2 heard no murmurs. Radial pulses intact bilaterally MSK Hands * Right Hand: Able to make a fist. No swelling or tenderness to palpation of these joints. No deformities noted. * Left Hand: Able to make a fist. No swelling or tenderness to palpation of these joints. No deformities noted. Wrists * Right Wrist: Full ROM. 70 degrees of wrist flexion, 80 degrees of wrist extension. No swelling or TTP * Left Wrist: Full ROM. 70 degrees of wrist flexion, 80 degrees of wrist extension. No swelling or TTP Elbows * Right Elbow: Full ROM. No swelling or TTP. No TTP of the medial and lateral epicondyles * Left Elbow: Full ROM. No swelling or TTP. No TTP of the medial and lateral epicondyles Shoulders * Right shoulder: Full ROM. No swelling noted. No TTP of the AC joint, subacromial bursa or posterior shoulder * Left shoulder: Full ROM. No swelling noted. No TTP of the AC joint, subacromial bursa or posterior shoulder Hips * Right hip: Good ROM. No pain elicited with hip flexion/internal rotation/external rotation * Left hip: Good ROM. No pain elicited with hip flexion/internal rotation/external rotation Hip bursa: No tenderness to palpation bilaterally Knees * Right knee: Full ROM. No swelling noted. No TTP of the knee joint lie or pes anserine bursa * Left knee: Full ROM. No swelling noted. No TTP of the knee joint lie or pes anserine bursa. Ankles * Right ankle: Good ankle dorsiflexion and plantar flexion. No swelling. No TTP of the ankle joint * Left ankle: Good ankle dorsiflexion and plantar flexion. No swelling. No TTP of the ankle joint Feet * Right foot: Negative squeeze test * Left foot: Negative squeeze test Tender points? * No tenderness to palpation of the bilateral trapezius, supraspinatus, anterior costochondral junctions, bilateral suboccipital muscle insertions SKIN No rashes Results Reviewed Results Reviewed: Laboratory Tests 12/31/24 01/08/25 13:13 11:26 WBC 6.7 RBC 5.06 Hgb 15.0 Hct 45.4 Plt Count 214 D Sodium 138 Potassium 3.9 Chloride 103 Carbon Dioxide 27 BUN 22 H Creatinine 0.81 25-OH Vitamin D Total 44.5 Assessment & Plan Assessment & Plan (1) Osteoporosis: Comment: DEXA 02/2021: AP Spine -2.9, Left femur neck -3.1, Left femur total -2.1 DEXA 02/2023: AP Spine -2.9, Left femur neck -2.9, Left femur total -2.2 Alendronate: February 2019- 12/2023 without improvement Tymlos 12/2023. Discontinued after a few doses due to significant nausea and dizziness Prolia started 01/2024 Code(s): M81.0 - Age-related osteoporosis without current pathological fracture Category: Medical Qualifiers: Osteoporosis type: age-related Presence of current pathological fracture: without current pathological fracture Qualified Code(s): M81.0 - Age- related osteoporosis without current pathological fracture Plan: #Osteoporosis Patient is a 64 y.o. female with osteoporosis here today for follow up. No falls or fractures since last visit Doing well with Prolia Discussed with patient that prolia cannot be stopped and would have to transition to another agent for 2 years prior to stopping if stopping is desired Plan - Continue prolia - Vit D at goal - DEXA 02/2025 - RTC 6 months - Labs before visit: CBC, CMP, ESR, CRP, vitamin D (2) Encounter for monitoring denosumab therapy: Code(s): Z51.81 - Encounter for therapeutic drug level monitoring; Z79.620 - senior care (current) use of immunosuppressive biologic Plan: #Long-term use of Denosumab Discussed with patient the risks and benefits of denosumab (Prolia) for the management of their osteoporosis Benefits include improved bone density, decreased fracture risk Risks include rapid bone loss if denosumab stopped, osteonecrosis of the jaw especially in patients with poor oral hygiene/diabetes/use of glucocorticoids/age greater than 65 years, atypical femoral fractures, injection site reactions. Mild increased risk of infections due to RANKL on T helper cells, increased risk of hypocalcemia especially in CKD patients Keep vitamin-D at least 35 ng/mL Advised to delay non emergent dental procedures to toward the end of the 6 month cycle and if they plan to stop denosumab would need to continue antiresorptive to maintain the effects of denosumab Plan I spent 30 minutes reviewing the record and labs, taking a history, examining the patient, discussing the treatment plan, ordering diagnostic work up and documenting in the medical record Orders: Orders Comprehensive Met. Panel 6 Months E55.9 - Vitamin D deficiency, unspecified, M81.0 - Age-related osteoporosis without current pathological fracture Vitamin D 25-OH Total 6 Months E55.9 - Vitamin D deficiency, unspecified, M81.0 - Age-related osteoporosis without current pathological fracture Coding Level of Care Code Est Pt Level 4 (95240) Complex EM visit Add On G2211 Diagnoses Age-related osteoporosis without current pathological fracture M81.0 Osteoporosis type: age-related Presence of current pathological fracture: without current pathological fracture Encounter for monitoring denosumab therapy Z51.81; Z79.620
[2025-01-15 09:48] VITALS: BP 100/70; PULSE 72; O2SAT 99; BMI 21.2
--- OUTSIDE RECORDS SUMMARY | 2025-01-15 09:55 | XMS_ITS | Patient Health Record ---
Author Organization [facility] Address [address] [place] [address] Care Team Providers Care Esol Instructor Name Role Phone Lina Mercado MD Primary Care Provider Johnny Lawler Jr Unavailable [phone] Allergies No Known Allergies Reason For [...] Problem Status W/U Status Risk Notes Problem [id number] Colon cancer screening (Z12.11) Active confirmed Problem [id number] Encounter for other preprocedural examination (Z01.818) Active confirmed Plan Of Treatment Pending Test Test Name Order Date COLONOSCOPY 04/13/2011 Future Test Test Name Order Date COLONOSCOPY 04/05/2021 Insurance Providers Payer Name Payer Address Payer Phone Subscriber Number Group Number Insured Name Patient Relationship to Insured Coverage Start Date Coverage End Date [facility] [address] [place] [address] [phone] [id number] BARTOLOME LUGO Self - patient is the insured [facility] [address] [place] [phone] [id number] BARTOLOME LUGO Self - patient is the insured Medical (General) History Medical History History ICD Code Osteoporosis Surgical History Surgery Date(Month/Year) partial hysterectomy 12 years ago bunion removed 15 years ago
== END 2025-01-15 10:26 | disposition home or self-care (01) ==
LOC: HO.RHE 09:29
PROVIDERS: PCP Internal Medicine; Visit Provider Student in an Organized Health Care Education/Training Program
DX: M81.0 Age-related osteoporosis without current pathological fracture (principal); Z51.81 Encounter for therapeutic drug level monitoring; Z79.620 Long term (current) use of immunosuppressive biologic
CPT/HCPCS: 99214; G2211

== ENCOUNTER → 2025-01-15 09:28 | Outpatient (BNVA) | payer MEDICARE, OTHER, SELFPAY | PROVIDERS: PCP Internal Medicine; Visit Provider Student in an Organized Health Care Education/Training Program | DX: M81.0 Age-related osteoporosis without current pathological fracture (principal); Z79.620 Long term (current) use of immunosuppressive biologic | CPT/HCPCS: 99212 ==

== ENCOUNTER 2025-01-17 10:30 | Outpatient (AMB) | payer MEDICARE, OTHER, SELFPAY ==
--- NOTE | 2025-01-17 10:48 | AM.OFFVISNUR ---
Intake Visit Reasons: prolia injection Allergies abaloparatide (From Tymlos) Adverse Reaction (Intermediate, Verified 01/15/25 09:48) Nausea Office Meds Prolia 60 mg/mL subcutaneous syringe Performing Provider: Inés Mondragon MD Performing Location[place] [facility] Administered by: Nicole Pena RN on 01/17/25 10:48 Dose Route Admin Location Dispensed Lot Number Expiration Date NDC It Lead 60 mg subcut upper right arm 1 mL [id number] 07/09/27 27715-177-58 [facility] Total Dispensed Waste 1 mL 0 % Comments: Patient tolerated procedure well. Denies adverse reactions to previous injections Assessment & Plan Assessment & Plan Orders: Orders AMB Denosumab Injection Patient Supplied Today M81.0 - Age-related osteoporosis without current pathological fracture Coding
--- OUTSIDE RECORDS SUMMARY | 2025-01-17 11:02 | XMS_ITS | Patient Health Record ---
Author Organization [facility] Address [address] [place] [address] Care Team Providers Care Instrument Processing Tech Name Role Phone Lina Mercado MD Primary [...] Problem Status W/U Status Risk Notes Problem [id number] Colon cancer screening (Z12.11) Active confirmed Problem [id number] Encounter for other preprocedural examination (Z01.818) Active confirmed Plan Of Treatment Pending Test Test Name Order Date COLONOSCOPY 04/13/2011 Future Test Test Name Order Date COLONOSCOPY 04/05/2021 Insurance Providers Payer Name Payer Address Payer Phone Subscriber Number Group Number Insured Name Patient Relationship to Insured Coverage Start Date Coverage End Date [facility] [address] [place] [address] [phone] [id number] BARTOLOME LUGO Self - patient is the insured [facility] INDEMNITY [address] [place] [phone] [id number] BARTOLOME LUGO Self - patient is the insured Medical (General) History Medical History History ICD Code Osteoporosis Surgical History Surgery Date(Month/Year) partial hysterectomy 12 years ago bunion removed 15 years ago
== END 2025-01-17 10:46 | disposition home or self-care (01) ==
LOC: HO.RHE 10:31
PROVIDERS: PCP Internal Medicine; Visit Provider Student in an Organized Health Care Education/Training Program
DX: M81.0 Age-related osteoporosis without current pathological fracture (principal)

== ENCOUNTER → 2025-01-17 10:30 | Outpatient (BNVA) | payer MEDICARE, OTHER, SELFPAY | PROVIDERS: PCP Internal Medicine; Visit Provider Student in an Organized Health Care Education/Training Program | DX: M81.0 Age-related osteoporosis without current pathological fracture (principal) | CPT/HCPCS: 96372; J0897 ==

== ENCOUNTER 2025-05-02 07:59 | Outpatient (REF) | payer MEDICARE, OTHER, SELFPAY ==
--- NOTE | ~2025-05-02 | MM_ITS ---
EXAMINATION: DXA BONE DENSITY AXIAL HISTORY: M81.0 - Age-related osteoporosis without current pathological fracture TECHNIQUE: [address] [employer] Dual energy absorptiometry (DEXA) of the lumbar spine, total left hip, and femoral neck was performed. COMPARISON: Comparison is made with the prior examination dated 02/21/2023. FINDINGS: The bone mineral density of the lumbar spine is 0.849 g/cm2, corresponding to a T-score of -2.8, and a Z-score of -1.0. This is indicative of osteoporosis. This represents a BMD change of 2.5% compared to the prior exam. This is not statistically significant. The bone mineral density of the left total hip is 0.756 g/cm2, corresponding to a T-score of -2.0, and a Z-score of -0.6. This is indicative of osteopenia. This represents a BMD change of 4.3% compared to the prior exam. This is not statistically significant. The bone mineral density of the left femoral neck is 0.747 g/cm2, corresponding to a T-score of -2.1, and a Z-score of -0.5. This is indicative of osteopenia. This represents a BMD change of 18.0% compared to the prior exam. FRACTURE RISK: The FRAX index suggests a ten year probability of major osteoporotic fracture of 10.4%, and of hip fracture 1.9%. MM/XR DEXA axial skeleton IMPRESSION: Based on bone mineral density, and according to World Health Organization (WHO) criteria, the diagnosis is consistent with osteoporosis. Statistically, 68% of repeat scans fall within 1 SD (+/- 0.010 g/cm2 for AP spine L1-L4) and 1 SD (+/- 0.012 g/cm2 for femur total) FRAX is a trademark of the [employer] [place] for Metabolic Bone Disease, a World Health Organization (WHO) Collaborating Center. Electronically signed by: Tim Girggs MD 05/02/2025 08:45 AM EDT
--- OUTSIDE RECORDS SUMMARY | 2025-05-02 08:05 | XMS_ITS | Encounter Summary ---
Author Organization [facility] Address [address] [place] [address] Phone Care Team Providers Care Emergency Management Consultant Name Role Phone Watson Balbuena MD Unavailable Marvin Gil MD Unavailable [phone] Dom Robles DO Unavailable [phone] Lina Mercado MD Primary Care Provider [phone] Encounter Details Date Type Department Care Team (Late st Contact Info) Description 06/19/2023 Transcribe Orders Virtual Department [address] [place] [address] Lina Mercado MD [address] [place] [phone] Breast screening (Primary Dx) Social History Tobacco Use Types Packs/Day Years Used Date Smoking Tobacco: Never Smokeless Tobacco: Never Alcohol Use Standard Drinks/Week Comments Yes 1 (1 standard drink = 0.6 oz pur e alcohol) 3-4 drinks in a week, wine Education Answer Date Recorded Are you interested in more education? Not on paige e 11/17/2022 Are you concerned about learning? Not on file 11/17/2022 No 11/17/2022 No 11/17/2022 Digital Access Answer Date Recorded No 12/04/2022 No 12/04/2022 Reliable internet access at home? Not on file 12/04/2022 Device with a working camera? 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 Not on file Not on file documented as of this encounter Plan of Treatment Upcoming Encounters Date Type Department Care Team (Late st Contact Info) Description 10/02/2024 Procedure Pass [address] [address] 10/03/2025 7:30 AM EDT Appointment [address] [address] System, Provider Not In, [place] [address] documented as of this encounter Results * BI MAMMOGRAM SCREENING WITH TOMOSYNTHESIS WITH CAD (BILATERAL) (08/21/2023 10:18 AM EST) Anatomical Region Laterality Modality Breast Left, Breast Right, Breast Bilateral Bila teral Mammography 08/23/2023 11:5 8 AM EST Impressions 08/24/2023 7:49 AM EST BILATERAL BREASTS: No evidence of malignancy. Normal interval follow-up is recommended. BI-RADS: BI-RADS CATEGORY: 2 - Benign finding. DENSITY: There are scattered fibroglandular densities. Narrative 08/24/2023 7:49 AM EST History: Breast cancer screening. STUDY: Bilateral screening mammography with tomosynthesis and CAD TECHNIQUE: Bilateral full-field digital screening mammography is obtained and read in conjunction with computer-aided detection. Tomosynthesis as well as 2-D C view imaging were obtained. COMPARISON: 06/30/2022, dating back to 06/13/2017. FINDINGS: Stable parenchymal pattern bilaterally accounting for differences in patient positioning. There are a few scattered benign calcifications. No suspicious mass, concerning group of calcifications or suspicious asymmetry identified. Procedure Note Carlos Manuel Pizarro MD - 08/24/2023 History: Breast cancer screening. STUDY: Bilateral screening mammography with tomosynthesis and CAD TECHNIQUE: Bilateral full-field digital screening mammography is obtainedand read in conjunction with computer-aided detection. Tomosynthesis aswell as 2-D C view imaging were obtained. COMPARISON: 06/30/2022, dating back to 06/13/2017. FINDINGS: Stable parenchymal pattern bilaterally accounting fordifferences in patient positioning. There are a few scattered benigncalcifications. No suspicious mass, concerning group of calcifications orsuspicious asymmetry identified. IMPRESSION: BILATERAL BREASTS: No evidence of malignancy. Normal interval follow-up isrecommended. BI-RADS: BI-RADS CATEGORY: 2 - Benign finding. DENSITY: There are scattered fibroglandular densities. Lina Mercado MD IMG MG EXAMS Final Result documented in this encounter Visit Diagnoses Diagnosis Breast screening- Primary Breast screening, unspecified Breast screening Breast screening, unspecified documented in this encounter Care Teams Emergency Management Consultant Relationship Specialty Start Date End Date Lina Mercado MD [address] [place] [phone] PCP - General Internal Medicine 04/30/19 Watson Balbuena MD [address] [place] [address], [address] [address] [email or web address] Historical LMR Provider 04/29/17 Marvin Gil MD [address] [place] [address], [address] [address] Historical LMR Provider 04/29/17 Dom Robles DO [address] [place] [address] Historical LMR Provider 04/29/17 documented as of this encounter Additional Source Comments The information contained in this document represents components of the legal health record. It is not the complete legal health record.[facility]
--- OUTSIDE RECORDS SUMMARY | 2025-05-02 08:05 | XMS_ITS | Encounter Summary ---
Author Organization [facility] Address [address] [place] [address] Phone Care Team Providers Care Sports Centre Manager Name Role Phone Dom Robles DO Primary Care Provider [phone] Watson Balbuena MD Unavailable Pam Mathew HOTEL ASSOCIATE Unavailable [phone] Marvin Gil MD Unavailable [phone] Dom Robles DO Unavailable [phone] Lisandro Barajas MD Unavailable [phone] Damian Ballard MD Unavailable [phone] Lina Mercado MD Primary Care Provider [phone] Encounter Details Date Type Department Care Team (Late st Contact Info) Description 04/29/2017 Ancillary Orders [facility], [facility] [address] [place] [address] Damian Ballard MD [address] [place] [address] Visit for screening mammogram Social History Tobacco Use Types Packs/Day Years Used Date Smoking Tobacco: Never Comments Unknown Sex and Gender Information Value Date Recorded Sex Assigned at Not on file Legal Sex Female 6:57 PM EST Gender Identity Not on file Sexual Orientation Not on file documented as of this encounter Plan of Treatment Upcoming Encounters Date Type Department Care Team (Late st Contact Info) Description 10/02/2024 Procedure Pass [address] [address] 10/03/2025 7:30 AM EDT Appointment [address] [address] System, Provider [place] In, [place] [address] documented as of this encounter Results * BI MAMMOGRAM SCREENING WITH TOMOSYNTHESIS WITH CAD (BILATERAL) (06/13/2017 7:53 AM EST) Anatomical Region Laterality Modality Breast Left, Breast Right, Breast Bilateral Bila teral Mammography 06/13/2017 8:40 AM EST Impressions 06/13/2017 8:42 AM EST Normal negative. Annual screening is recommended. Patient notified by letter. BI-RADS CATEGORY: 1 - Negative. DENSITY: There are scattered fibroglandular densities. POS: [id number] Narrative 06/13/2017 8:42 AM EST Screening Mammogram, bilateral with utilization of computer aided detection and tomosynthesis as well as 2-D C view imaging. Comparison: Dating back to 2013 and the most recent prior examination dated 2015. Findings: No suspicious masses or suspicious clustered microcalcifications are present. No architectural distortion or significant asymmetry is present. Breasts are composed of scattered fibroglandular elements. Procedure Note Chalino Esquivel MD - 06/13/2017 Screening Mammogram, bilateral with utilization of computer aideddetection and tomosynthesis as well as 2-D C view imaging. Comparison: Dating back to 2013 and the most recent prior examinationdated 2015. Findings: No suspicious masses or suspicious clustered microcalcificationsare present. No architectural distortion or significant asymmetry ispresent. Breasts are composed of scattered fibroglandular elements. IMPRESSION: Normal negative. Annual screening is recommended. Patient notified by letter. BI-RADS CATEGORY: 1 - Negative. DENSITY: There are scattered fibroglandular densities. POS: [id number] Damian Ballard MD IMG MG EXAMS Final Result documented in this encounter Visit Diagnoses Diagnosis Visit for screening mammogram Visit for screening mammogram documented in this encounter Care Teams Sports Centre Manager Relationship Specialty Start Date End Date Dom Robles DO [address] [address] PCP - General 01/07/14 04/29/19 Lina Mercado MD [address] [place] [phone] PCP - General Internal Medicine 04/30/19 Watson Balbuena MD [address] [address] Historical LMR Provider 04/29/17 Pam Mathew NP [address] [place] [address] Historical LMR Provider 04/29/17 2 Marvin Gil MD [address] [address] Historical LMR Provider 04/29/17 Dom Robles DO [address] [address] Historical LMR Provider 04/29/17 Lisandro Barajas MD [address] [place] [address] Historical LMR Provider 04/29/17 2 Damian Ballard MD [address] [place] [address] Historical LMR Provider 04/29/17 2 documented as of this encounter Additional Source Comments The information contained in this document represents components of the legal health record. It is not the complete legal health record.[facility]
--- OUTSIDE RECORDS SUMMARY | 2025-05-02 08:05 | XMS_ITS | Encounter Summary ---
Author Organization [facility] Address [address] [facility] [place] [address] Phone Care Team Providers Care Wearing Apparel Shaker Name Role Phone Dom Robles DO Primary Care Provider [phone] Watson Balbuena MD Unavailable Pam Mathew BOILERMAKER LOFTSMAN Unavailable [phone] Marvin Gil MD Unavailable [phone] Dom Robles DO Unavailable [phone] Lisandro Barajas MD Unavailable [phone] Damian Ballard MD Unavailable [phone] Lina Mercado MD Primary Care Provider [phone] Encounter Details Date Type Department Care Team (Late st Contact Info) Description 04/29/2017 Ancillary Orders [facility] [address] [place] [address] Damian Ballard MD [address] [place] [address] Social History Tobacco Use Types Packs/Day Years [...] st Contact Info) Description 10/02/2024 Procedure Pass [address] [address] 10/03/2025 7:30 AM EDT Appointment [address] [address] System, Provider [place] In, [place] [address] documented as of this encounter Visit Diagnoses Not on filedocumented in this encounter Care Teams Wearing Apparel Shaker Relationship Specialty Start Date End Date Dom Robles DO [address] [place] [address] PCP - General 01/07/14 04/29/19 Lina Mercado MD [address] [place] [phone] PCP - General Internal Medicine 04/30/19 Watson Balbuena MD [address] [place] [address] Historical LMR Provider 04/29/17 Pam Mathew NP [address] [place] [address] Historical LMR Provider 04/29/17 Marvin Vides MD [address] [place] [address] Historical LMR Provider 04/29/17 Dom Robles DO [address] [place] [address] Historical LMR Provider 04/29/17 Lisandro Barajas MD [address] [place] [phone] Historical LMR Provider 04/29/17 2 Damian Ballard MD [address] [place] [address] Historical LMR Provider 04/29/17 2 documented as of this encounter Additional Source Comments The information contained in this document represents components of the legal health record. It is not the complete legal health record.[facility]
--- OUTSIDE RECORDS SUMMARY | 2025-05-02 08:05 | XMS_ITS | Encounter Summary ---
Author Organization [facility] Address [address] [place] [address] Phone Care Team Providers Care Spa Coordinator Name Role Phone Watson Balbuena MD Unavailable Marvin Gil MD Unavailable [phone] Dom Robles DO Unavailable [phone] Lina Mercado MD Primary Care Provider [phone] Encounter Details Date Type Department Care Team (Late st Contact Info) Description 06/19/2023 Procedure Pass [facility], [address] [address] Social History Tobacco Use Types Packs/Day Years [...] with a working camera? 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 file Not on file documented as of this encounter Plan of Treatment Upcoming Encounters Date Type Department Care Team (Late st Contact Info) Description 10/02/2024 Procedure Pass [address] [address] 10/03/2025 7:30 AM EDT Appointment [address] [address] System, Provider Not In, [facility] [address] [address] documented as of this encounter Visit Diagnoses Not on filedocumented in this encounter Care Teams Spa Coordinator Relationship Specialty Start Date End Date Lina Mercado MD [address] [place] [phone] PCP - General Internal Medicine 04/30/19 Watson Balbuena MD [address] [place] [address] Historical LMR Provider 04/29/17 Marvin Gil MD [address] [place] [address] Historical LMR Provider 04/29/17 Dom Robles DO [address] [place] [address] Historical LMR Provider 04/29/17 documented as of this encounter Additional Source Comments The information contained in this document represents components of the legal health record. It is not the complete legal health record.[facility]
--- OUTSIDE RECORDS SUMMARY | 2025-05-02 08:05 | XMS_ITS | Encounter Summary ---
Author Organization [facility] Address [address] [place] [address] Phone Care Team Providers Care Public Service Administrator Name Role Phone Watson Balbuena MD Unavailable Pam Mathew WORKERS COMPENSATION CLAIMS ADJUSTER Unavailable [phone] Marvin Gil MD Unavailable [phone] Dom Robles DO Unavailable [phone] Lisandro Barajas MD Unavailable [phone] Damian Ballard MD Unavailable [phone] Lina Mercado MD Primary Care Provider [phone] Encounter Details Date Type Department Care Team (Late st Contact Info) Description 04/06/2021 Procedure Pass [address] [address] Social History Tobacco Use Types Packs/Day Years Used Date Smoking Tobacco: Never Smokeless Tobacco: Never Alcohol Use Standard Drinks/Week Comments Yes 1 (1 standard drink = 0.6 oz pur e alcohol) 3-4 drinks in a week, wine Comments No Sex and Gender Information Value Date Recorded Sex Assigned at Not on file Legal Sex Female 6:57 PM EST Gender Identity Not on file Sexual Orientation Not on file 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 Not on file Not on file documented as of this encounter Plan of Treatment Upcoming Encounters Date Type Department Care Team (Late st Contact Info) Description 10/02/2024 Procedure Pass [address] [address] 10/03/2025 7:30 AM EDT Appointment [address] [address] System, Provider Not In, [place] [address] documented as of this encounter Visit Diagnoses Not on filedocumented in this encounter Care Teams Public Service Administrator Relationship Specialty Start Date End Date Lina Mercado MD [address] [place] [phone] PCP - General Internal Medicine 04/30/19 Watson Balbuena MD [address] [address] Historical LMR Provider 04/29/17 Pam Mathew NP 30 [place] [address] Historical LMR Provider 04/29/17 2 Marvin Gil MD [address] [address] Historical LMR Provider 04/29/17 Dom Robles DO [address] [place] [address] Historical LMR Provider 04/29/17 Lisandro Barajas MD 61 [place] [address] Historical LMR Provider 04/29/17 2 Damian Ballard MD [address] [place] [address] Historical LMR Provider 04/29/17 2 documented as of this encounter Additional Source Comments The information contained in this document represents components of the legal health record. It is not the complete legal health record.[facility]
--- OUTSIDE RECORDS SUMMARY | 2025-05-02 08:05 | XMS_ITS | Encounter Summary ---
Author Organization [facility] Address [address] [facility] [address] [place] [address] Phone Care Team Providers Care Astrophysics Professor Name Role Phone Dom Robles DO Primary Care Provider [phone] Watson Balbuena MD Unavailable Pam Mathew ACCOUNTS RECEIVABLE ASSOCIATE Unavailable [phone] Marvin Gil MD Unavailable [phone] Dom Robles DO Unavailable [phone] Lisandro Barajas MD Unavailable [phone] Damian Ballard MD Unavailable [phone] Lina Mercado MD Primary Care Provider [phone] Reason for Referral * Physical Therapy (Routine) - Closed Specialty Diagnoses / Procedures Referred By Carmen main Referred To Contact Physical Therapy Diagnoses Encounter for rehabilitation System, Provider Not In, PhD [phone] [place] [address] Phone: tel: Referral ID Status Reason Start Date Expiration Date Visits Re quested Visits Authorized [id number] Closed 10/31/2017 04/30/2018 16 16 Encounter Details Date Type Department Care Team (Latest Contact Info) Description 09/29/2017 Transcribe Orders [facility] [address] [place] [address] Dom Robles DO [address] [address] Encounter for rehabilitation (Primary Dx) Social History Tobacco Use Types Packs/Day Years Used Date Smoking Tobacco: Never Smokeless Tobacco: Never Alcohol Use Standard Drinks/Week Comments Yes 5 (1 standard drink = 0.6 oz pur e alcohol) Comments No Sex and Gender Information Value Date Recorded Sex Assigned at Not on file Legal Sex Female 6:57 PM EST Gender Identity Not on file Sexual Orientation Not on file 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 Not on file documented as of this encounter Plan of Treatment Upcoming Encounters Date Type Department Care Team (Late st Contact Info) Description 10/02/2024 Procedure Pass [address] [address] 10/03/2025 7:30 AM EDT Appointment [address] [address] System, Provider Not In, [place] [address] Scheduled Referrals Name Type Priority Associated Diagnoses Orde r Schedule Ambulatory referral to [facility] Physical Therapy Outpatient Referral Routine Encounter for rehabilitation Ordered: 09/29/2017 documented as of this encounter Visit Diagnoses Diagnosis Encounter for rehabilitation- Primary documented in this encounter Care Teams Astrophysics Professor Relationship Specialty Start Date End Date Dom Robles DO [address] [address] PCP - General 01/07/14 04/29/19 Lina Mercado MD [address] [place] [phone] PCP - General Internal Medicine 04/30/19 Watson Balbuena MD [address] [place] [address], [address] [address] Historical LMR Provider 04/29/17 Pam Mathew NP 30 [place] [address] Historical LMR Provider 04/29/17 2 Marvin Gil MD [address] [facility], [address] [place] [address] [email or web address] Historical LMR Provider 04/29/17 Dom Robles DO [address] [place] [address] Historical LMR Provider 04/29/17 Lisandro Barajas MD 61 [place] [address] Historical LMR Provider 04/29/172 2 Damian Ballard MD 61 [place] [address] Historical LMR Provider 04/29/17 2 documented as of this encounter Additional Source Comments The information contained in this document represents components of the legal health record. It is not the complete legal health record.[facility]
--- OUTSIDE RECORDS SUMMARY | 2025-05-02 08:05 | XMS_ITS | Encounter Summary ---
Author Organization [facility] Address [address] [place] [address] Phone Care Team Providers Care Automotive Parts Specialist Name Role Phone Watson Balbuena MD Unavailable Marvin Gil MD Unavailable [phone] Dom Robles DO Unavailable [phone] Lina Mercado MD Primary Care Provider [phone] Encounter Details Date Type Department Care Team (Late st Contact Info) Description 07/09/2024 Procedure Pass [facility], [address] [address] Social History Tobacco Use Types Packs/Day Years Used Date Smoking Tobacco: Never Smokeless Tobacco: Never Alcohol Use Standard Drinks/Week Comments Yes 2 (1 standard drink = 0.6 oz pur e alcohol) Education Answer Date Recorded Are you interested [...] 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 Not on file documented as of this encounter Plan of Treatment Upcoming Encounters Date Type Department Care Team (Late st Contact Info) Description 10/02/2024 Procedure Pass [address] [address] 10/03/2025 7:30 AM EDT Appointment [address] [address] System, Provider Not In, [facility] [address] [address] documented as of this encounter Visit Diagnoses Not on filedocumented in this encounter Care Teams Automotive Parts Specialist Relationship Specialty Start Date End Date Lina Mercado MD [address] [place] [phone] PCP - General Internal Medicine 04/30/19 Watson Balbuena MD [address] [place] [address] [email or web address] Historical LMR Provider 04/29/17 Marvin Gil MD [address] [place] [address] Historical LMR Provider 04/29/17 Dom Robles DO [address] [place] [address] Historical LMR Provider 04/29/17 documented as of this encounter Additional Source Comments The information contained in this document represents components of the legal health record. It is not the complete legal health record.[facility]
--- OUTSIDE RECORDS SUMMARY | 2025-05-02 08:05 | XMS_ITS | Patient Health Record ---
Author Organization [facility] Address [address] [place] [address] Care Team Providers Care Rn Iv Therapy Name Role Phone Lina Mercado MD Primary Care Provider Johnny Lawler Jr Unavailable Allergies No Known Allergies Reason For Referral No Information Medications Medication SIG (Take, Route, Frequency, Duration) Notes Start Date End Date Status Calcium 1 tab Oral; Duration : 14 days Active Alendronate Sodium 70 MG 1 tablet 30 min utes before the first food, beverage or medicine of the day with plain water Orally Once a week Active B12 Folate 800-800 MCG as directed Orally Active MiraLax (colon prep) 17 GM/SCOOP mixed with Gatorade or Crystal Light Orally begin at 5:00 p.m. the day before the procedure; Duration: 1 day 04/05/2021 Active Immunizations Vaccine Route [...] Problem Status W/U Status Risk Notes Problem Information temporarily unavailable Colon cancer screening (Z12.11) Active confirmed Problem Information temporarily unavailable Encounter for other preprocedural examination (Z01.818) Active confirmed Plan Of Treatment Pending Test Test Name Order Date COLONOSCOPY 04/13/2011 Future Test Test Name Order Date COLONOSCOPY 04/05/2021 Insurance Providers Payer Name Payer Address Payer Phone Subscriber Number Group Number Insured Name Patient Relationship to Insured Coverage Start Date Coverage End Date [facility] [address] [place] [address] [phone] [id number] BARTOLOME LUGO Self - patient is the insured [facility] [address] [place] [phone] [id number] BARTOLOME LUGO Self - patient is the insured Medical (General) History Medical History History ICD Code Osteoporosis Surgical History Surgery Date(Month/Year) partial hysterectomy 12 years ago bunion removed 15 years ago
--- OUTSIDE RECORDS SUMMARY | 2025-05-02 08:05 | XMS_ITS | Encounter Summary ---
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 Not on file documented as of this encounter Plan of Treatment Upcoming Encounters Date Type Department Care Team (Late st Contact Info) Description 10/02/2024 Procedure Pass [address] [address] 10/03/2025 7:30 AM EDT Appointment [address] [address] System, Provider Not In, [facility] [address] [address] documented as of this encounter Visit Diagnoses Not on filedocumented in this encounter Care Teams Product Manager Medical Device Relationship Specialty Start Date End Date Lina Mercado MD [address] [place] [phone] PCP - General Internal Medicine 04/30/19 Watson Balbuena MD [address] [place] [address] Historical LMR Provider 04/29/17 Marvin Gil MD [address] [place] [address] Historical LMR Provider 04/29/17 Dom Robles DO [address] [place] [address] Historical LMR Provider 04/29/17 documented as of this encounter Additional Source Comments The information contained in this document represents components of the legal health record. It is not the complete legal health record.[facility]
--- OUTSIDE RECORDS SUMMARY | 2025-05-02 08:06 | XMS_ITS | Encounter Summary ---
Author Organization [facility] Address [address] [facility] [address] [place] [address] Phone Care Team Providers Care Transformer Maker Name Role Phone Dom Robles DO Primary Care Provider [phone] Watson Balbuena MD Unavailable Pam Mathew NETWORKER Unavailable [phone] Marvin Gil MD Unavailable [phone] Dom Robles DO Unavailable [phone] Lisandro Barajas MD Unavailable [phone] Damian Ballard MD Unavailable [phone] Lina Mercado MD Primary Care Provider [phone] Reason for Referral * MRI/CAT Scan - Closed Specialty Diagnoses / Procedures Referred By Contac t Referred To Contact Radiology Diagnoses Lumbosacral neuritis DDD (degenerative disc disease), lumbar Procedures MRI Lumbar Spine Carlos Manuel Nino MD Phone: tel: fax: mailto: Referral ID Status Reason Start Date Expiration Date Visits Re quested Visits Authorized [id number] Closed 02/01/2018 03/02/2018 1 1 Encounter Details Date Type Department Care Team (Late st Contact Info) Description 01/31/2018 Ancillary Orders [facility], [facility] Scan [address] [address] Carlos Manuel Nino MD [address] [place] [address] [email or web address] Lumbosacral neuritis; DDD (degenerative disc disease), lumbar Social History Tobacco Use Types Packs/Day Years Used Date Smoking Tobacco: Never Smokeless Tobacco: Never Alcohol Use Standard Drinks/Week Comments Yes 0 (1 standard drink = 0.6 oz pur e alcohol) 3-4 drinks in a week, wine Comments No Sex and Gender Information Value Date Recorded Sex Assigned at Not on file Legal Sex Female 6:57 PM EST Gender Identity Not on file Sexual Orientation Not on file 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 Mild central canal stenosis and mild bilateral neural foraminal stenosis at L3- L4. Mild central canal stenosis at L4-L5 POS - [id number] Narrative 02/02/2018 4:06 PM EDT MRI LUMBAR SPINE (NEURO) WITHOUT CONTRAST, HISTORY: Low back pain with bilateral leg radiation, numbness and tingling. COMPARISON: None. TECHNIQUE: Exam performed on a 1.5 Shalini high-field MRI scanner. Sagittal T1, T2 and STIR, axial T1 and T2 sequences were obtained. FINDINGS: Lumbar lordosis is normal. Lumbar vertebrae are normal in height and alignment. There is no acute fracture. There are scattered foci of marrow fat. There is no bone marrow edema. The intervertebral discs are normal in height, mildly diminished internal signal at L3-L4 and L4-L5. The conus terminates at the inferior L1 level and is normal in signal and morphology. The paravertebral soft tissues are normal. Evaluation of the individual disc levels as follows: T12-L1: There is no disc herniation. No significant central canal or neural foraminal stenosis. L1-L2: There is no disc herniation. No significant central canal or neural foraminal stenosis. L2-L3: There is no disc herniation. No significant central canal or neural foraminal stenosis. L3-L4: Mild diffuse disc bulging and mild bilateral facet degenerative hypertrophic changes. There is mild central canal stenosis, mild bilateral neural foraminal stenosis. L4-L5: Mild diffuse disc bulging with small superimposed central disc protrusion. There is mild central canal stenosis. No significant neural foraminal stenosis. L5-S1: There is no disc herniation. There is no significant central canal or neural foraminal stenosis. Procedure Note Edita Oliver MD - 02/02/2018 MRI LUMBAR SPINE (NEURO) WITHOUT CONTRAST, HISTORY: Low back pain with bilateral leg radiation, numbness andtingling. COMPARISON: None. TECHNIQUE: Exam performed on a 1.5 Shalini high-field MRI scanner. SagittalT1, T2 and STIR, axial T1 and T2 sequences were obtained. FINDINGS: Lumbar lordosis is normal. Lumbar vertebrae are normal in height and alignment. There is no acutefracture. There are scattered foci of marrow fat. There is no bone marrowedema. The intervertebral discs are normal in height, mildly diminished internalsignal at L3-L4 and L4-L5. The conus terminates at the inferior L1 level and is normal in signal andmorphology. The paravertebral soft tissues are normal. Evaluation of the individual disc levels as follows: T12-L1: There is no disc herniation. No significant central canal orneural foraminal stenosis. L1-L2: There is no disc herniation. No significant central canal or neuralforaminal stenosis. L2-L3: There is no disc herniation. No significant central canal or neuralforaminal stenosis. L3-L4: Mild diffuse disc bulging and mild bilateral facet degenerativehypertrophic changes. There is mild central canal stenosis, mild bilateralneural foraminal stenosis. L4-L5: Mild diffuse disc bulging with small superimposed central discprotrusion. There is mild central canal stenosis. No significant neuralforaminal stenosis. L5-S1: There is no disc herniation. There is no significant central canalor neural foraminal stenosis. IMPRESSION: No large disc herniations. Mild central canal stenosis and mild bilateral neural foraminal stenosisat L3- L4. Mild central canal stenosis at L4-L5 POS - [id number] Carlos Manuel Nino MD IMG MR XSPECIALTY Final Result documented in this encounter Visit Diagnoses Diagnosis Lumbosacral neuritis Thoracic or lumbosacral neuritis or radiculitis, unspecified DDD (degenerative disc disease), lumbar Degeneration of lumbar or lumbosacral intervertebral disc Lumbosacral neuritis Thoracic or lumbosacral neuritis or radiculitis, unspecified DDD (degenerative disc disease), lumbar Degeneration of lumbar or lumbosacral intervertebral disc documented in this encounter Care Teams Transformer Maker Relationship Specialty Start Date End Date Dom Robles DO [address] [place] [address] PCP - General 01/07/14 04/29/19 Lina Mercado MD [address] [place] [address] [address] [place] [address] PCP - General Internal Medicine 04/30/19 Watson Balbuena MD [address] [facility], [address] [place] [address] Historical LMR Provider 04/29/17 Pam Mathew NP [address] [place] [address] Historical LMR Provider 04/29/17 2 Marvin Gil MD [address] [facility], [address] [place] [address] Historical LMR Provider 04/29/17 Dom Robles DO [address] [place] [address] Historical LMR Provider 04/29/17 Lisandro Barajas MD [address] [place] [address] Historical LMR Provider 04/29/172 2 Damian Ballard MD [address] [place] [address] Historical LMR Provider 04/29/17 2 documented as of this encounter Additional Source Comments The information contained in this document represents components of the legal health record. It is not the complete legal health record.[facility]
--- OUTSIDE RECORDS SUMMARY | 2025-05-02 08:06 | XMS_ITS | Encounter Summary ---
Author Organization [facility] Address [address] [facility] [address] [place] [address] Phone Care Team Providers Care Paint Department Supervisor Name Role Phone Watson Balbuena MD Unavailable Marvin Gil MD Unavailable [phone] Dom Robles DO Unavailable [phone] Lina Mercado MD Primary Care Provider [phone] Reason for Referral * Physical Therapy (Routine) - Closed Specialty Diagnoses / Procedures Referred By Contac t Referred To Contact Physical Therapy Diagnoses Encounter for rehabilitation Watson Balbuena MD Phone: tel: fax: [email or web address]:[email or web address] [address] [place] [address] Phone: tel: Referral ID Status Reason Start Date Expiration Date Visits Re quested Visits Authorized [id number] Closed 11/21/2023 11/20/2024 1 1 Encounter Details Date Type Department Care Team (Latest Contact Info) Description 11/21/2023 Transcribe Orders [facility] [address] [place] [address] Watson Balbuena MD [address] [facility], [address] [place] [address] [email or web address] Encounter for rehabilitation (Primary Dx) Social History [...] 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 Not on file documented as of this encounter Plan of Treatment Upcoming Encounters Date Type Department Care Team (Late st Contact Info) Description 10/02/2024 Procedure Pass [address] [address] 10/03/2025 7:30 AM EDT Appointment [address] [address] System, Provider Not In, [place] [address] Scheduled Referrals Name Type Priority Associated Diagnoses Orde r Schedule Ambulatory referral to [facility] Physical Therapy Outpatient Referral Routine Encounter for rehabilitation Ordered: 11/21/2023 documented as of this encounter Visit Diagnoses Diagnosis Encounter for rehabilitation- Primary documented in this encounter Care Teams Paint Department Supervisor Relationship Specialty Start Date End Date Lina Mercado MD [address] [place] [address] [place] [phone] PCP - General Internal Medicine 04/30/19 Watson Balbuena MD [address] [place] [address], [address] [place] [address] [email or web address] Historical LMR Provider 04/29/17 Marvin Gil MD [address] [place] [address] [address] [place] [address] [email or web address] Historical LMR Provider 04/29/17 Dom Robles DO [address] [place] [address] Historical LMR Provider 04/29/17 documented as of this encounter Additional Source Comments The information contained in this document represents components of the legal health record. It is not the complete legal health record.[facility]
--- OUTSIDE RECORDS SUMMARY | 2025-05-02 08:06 | XMS_ITS | Encounter Summary ---
Author Organization [facility] Address [address] [facility] [address] [place] [address] Phone Care Team Providers Care Film Cleaner Name Role Phone Dom Robles DO Primary Care Provider [phone] Watson Balbuena MD Unavailable Pam Mathew AIR EXPORT OPERATIONS AGENT Unavailable [phone] Marvin Gil MD Unavailable [phone] Dom Robles DO Unavailable [phone] Lisandro Barajas MD Unavailable [phone] Damian Ballard MD Unavailable [phone] Lina Mercado MD Primary Care Provider [phone] Encounter Details Date Type Department Care Team (Late Contact Info) Description 12/06/2017 Procedure Pass OR Admitting Dept - Virtual Department [address] [place] [address] Social History Tobacco Use Types Packs/Day Years [...] 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 Not on file documented as of this encounter Plan of Treatment Upcoming Encounters Date Type Department Care Team (Late Contact Info) Description 10/02/2024 Procedure Pass [address] [address] 10/03/2025 7:30 AM EDT Appointment [address] [address] System, Provider [place] In, [place] [address] documented as of this encounter Visit Diagnoses Not on filedocumented in this encounter Care Teams Film Cleaner Relationship Specialty Start Date End Date Dom Robles DO [address] [place] [address] PCP - General 01/07/14 04/29/19 Lina Mercado MD [address] [place] [phone] PCP - General Internal Medicine 04/30/19 Watson Balbuena MD [address] [place] [address] Historical LMR Provider 04/29/17 Pam Mathew NP [address] [place] [address] Historical LMR Provider 04/29/17 2 Marvin Gil MD [address] [place] [address] Historical LMR Provider 04/29/17 Dom Robles DO [address] [place] [address] Historical LMR Provider 04/29/17 Lisandro Barajas MD [address] [place] [phone] Historical LMR Provider 04/29/17 2 Damian Ballard MD [address] [place] [address] Historical LMR Provider 04/29/17 2 documented as of this encounter Additional Source Comments The information contained in this document represents components of the legal health record. It is not the complete legal health record.[facility]
--- OUTSIDE RECORDS SUMMARY | 2025-05-02 08:07 | XMS_ITS | Encounter Summary ---
Author Organization [facility] Address [address] [place] [address] Phone Care Team Providers Care Recessing Machine Operator Name Role Phone Dom Robles DO Primary Care Provider [phone] Watson Balbuena MD Unavailable Pam Mathew COMPENSATION AND BENEFITS ADMINISTRATOR Unavailable [phone] Marvin Gil MD Unavailable [phone] Dom Robles DO Unavailable [phone] Lisandro Barajas MD Unavailable [phone] Damian Ballard MD Unavailable [phone] Lina Mercado MD Primary Care Provider [phone] Encounter Details Date Type Department Care Team (Late st Contact Info) Description 01/31/2018 Procedure Pass [facility], [address] [address] Social History Tobacco Use Types Packs/Day Years [...] 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 Not on file documented as of this encounter Last Filed Vital Signs Vital Sign Reading Time Taken Comments Blood Pressure - - Pulse - - Temperature - - Respiratory Rate - - Oxygen Saturation - - Inhaled Oxygen Concentration - - Weight 56.7 kg (125 lb) 01/31/2018 10:22 AM EDT Height 167.6 cm (5' 6 ) 01/31/2018 10:22 AM EDT Body Mass Index 20.18 01/31/2018 10:22 AM EDT documented in this encounter Plan of Treatment Upcoming Encounters Date Type Department Care Team (Late st Contact Info) Description 10/02/2024 Procedure Pass [address] [address] 10/03/2025 7:30 AM EDT Appointment [address] [address] System, Provider [place] In, [place] [address] documented as of this encounter Visit Diagnoses Not on filedocumented in this encounter Care Teams Recessing Machine Operator Relationship Specialty Start Date End Date Dom Robles DO [address] [place] [address] PCP - General 01/07/14 04/29/19 Lina Mercado MD [address] [place] [phone] PCP - General Internal Medicine 04/30/19 Watson Balbuena MD [address] [place] [address] [email or web address] Historical LMR Provider 04/29/17 Pam Mathew NP [address] [place] [address] Historical LMR Provider 04/29/17 2 Marvin Gil MD [address] [place] [address] [email or web address] Historical LMR Provider 04/29/17 Dom Robles DO [address] [place] [address] Historical LMR Provider 04/29/17 Lisandro Barajas MD [address] [place] [phone] Historical LMR Provider 04/29/17 2 Damian Ballard MD [address] [place] [address] Historical LMR Provider 04/29/17 2 documented as of this encounter Additional Source Comments The information contained in this document represents components of the legal health record. It is not the complete legal health record.[facility]
--- OUTSIDE RECORDS SUMMARY | 2025-05-02 08:07 | XMS_ITS | Encounter Summary ---
Author Organization [facility] Address [address] [facility] [address] [place] [address] Phone Care Team Providers Care Tenderizer Tender Name Role Phone Dom Robles DO Primary Care Provider [phone] Watson Balbuena MD Unavailable Pam Mathew TRACTOR EXPERT Unavailable [phone] Marvin Gil MD Unavailable [phone] Dom Robles DO Unavailable [phone] Lisandro Barajas MD Unavailable [phone] Damian Ballard MD Unavailable [phone] Lina Mercado MD Primary Care Provider [phone] Encounter Details Date Type Department Care Team (Late st Contact Info) Description 03/15/2018 Ancillary Orders Virtual Department [address] [place] [address] Dom Robles DO [address] [address] Breast screening Social History Tobacco Use Types Packs/Day Years [...] 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 Not on file documented as of this encounter Plan of Treatment Upcoming Encounters Date Type Department Care Team (Late st Contact Info) Description 10/02/2024 Procedure Pass [address] [address] 10/03/2025 7:30 AM EDT Appointment [address] [address] System, Provider Not In, [place] [address] documented as of this encounter Results * (ABNORMAL) BI MAMMOGRAM SCREENING WITH TOMOSYNTHESIS WITH CAD (BILATERAL) (06/14/2018 7:47 AM EST) Anatomical Region Laterality Modality Breast Left, Breast Right, Breast Bilateral Bila teral Mammography 06/14/2018 7:57 AM EST Addenda Addendum by Flaca Alvarez MD on 06/14/2018 8:13 AM EST 58-year-old female with no current breast symptoms. Comparison made to previous on 11/27/2017 and as far back as 12/03/2013. Interpretation made in conjunction with computer-aided detection and tomosynthesis. There are scattered areas of fibroglandular density. There is an equivocal small area of distortion in the posterior lateral left breast on the cc view. -->> There is a new right biopsy clip and stable scattered bilateral benign punctate microcalcifications.<<-- There are no suspicious masses or suspicious clusters of microcalcifications. IMPRESSION: Recommend recalling the patient for possible left breast distortion. Radiology department will attempt to recall the patient. Recall views: Combination spot compression and spot magnification left cc view. Nonspot left ML view. Ultrasound if necessary. BI-RADS CATEGORY: 0 - Incomplete. Need additional imaging evaluation. DENSITY: There are scattered fibroglandular densities. LEFT RECOMMENDATION DATE: 1 Month Additional Imaging RIGHT RECOMMENDATION DATE: 12 Months Mammography Screening POS - [email or web address] Impressions 06/14/2018 8:06 AM EST Recommend recalling the patient for possible left breast distortion. Radiology department will attempt to recall the patient. Recall views: Combination spot compression and spot magnification left cc view. Nonspot left ML view. Ultrasound if necessary. BI-RADS CATEGORY: 0 - Incomplete. Need additional imaging evaluation. DENSITY: There are scattered fibroglandular densities. LEFT RECOMMENDATION DATE: 1 Month Additional Imaging RIGHT RECOMMENDATION DATE: 12 Months Mammography Screening POS - [email or web address] Narrative 06/14/2018 8:06 AM EST 58-year-old female with no current breast symptoms. Comparison made to previous on 11/27/2017 and as far back as 12/03/2013. Interpretation made in conjunction with computer-aided detection and tomosynthesis. There are scattered areas of fibroglandular density. There is an equivocal small area of distortion in the posterior lateral left breast on the cc view. There are no suspicious masses or suspicious clusters of microcalcifications. Procedure Note Flaca Alvarez MD - 06/14/2018 58-year-old female with no current breast symptoms. Comparison made toprevious on 11/27/2017 and as far back as 12/03/2013. Interpretation madein conjunction with computer-aided detection and tomosynthesis. There are scattered areas of fibroglandular density. There is an equivocalsmall area of distortion in the posterior lateral left breast on the ccview. There are no suspicious masses or suspicious clusters ofmicrocalcifications. IMPRESSION: Recommend recalling the patient for possible left breast distortion.Radiology department will attempt to recall the patient. Recall views: Combination spot compression and spot magnification left ccview. Nonspot left ML view. Ultrasound if necessary. BI-RADS CATEGORY: 0 - Incomplete. Need additional imaging evaluation. DENSITY: There are scattered fibroglandular densities. LEFT RECOMMENDATION DATE: 1 Month Additional Imaging RIGHT RECOMMENDATION DATE: 12 Months Mammography Screening POS - [email or web address] Dom Robles DO IMG MG EXAMS Edited Result - Final documented in this encounter Visit Diagnoses Diagnosis Breast screening Breast screening, unspecified Breast screening Breast screening, unspecified documented in this encounter Care Teams Tenderizer Tender Relationship Specialty Start Date End Date Dom Robles DO [address] [place] [address] PCP - General 01/07/14 04/29/19 Lina Mercado MD [address] [place] [phone] PCP - General Internal Medicine 04/30/19 Watson Balbuena MD [address] [address] [email or web address] Historical LMR Provider 04/29/17 Pam Mathew NP [address] [place] [address] Historical LMR Provider 04/29/17 2 Marvin Gil MD [address] [address] Historical LMR Provider 04/29/17 Dom Robles DO [address] [place] [address] Historical LMR Provider 04/29/17 Lisandro Barajas MD [address] [place] [address] Historical LMR Provider 04/29/17 2 Damian Ballard MD [address] [place] [address] Historical LMR Provider 10/21/17 1/8/2 2 documented as of this encounter Additional Source Comments The information contained in this document represents components of the legal health record. It is not the complete legal health record.[facility]
--- OUTSIDE RECORDS SUMMARY | 2025-05-02 08:07 | XMS_ITS | Encounter Summary ---
Author Organization [facility] Address [address] [facility] [address] [place] [address] Phone Care Team Providers Care Associate Program Manager Name Role Phone Dom Robles DO Primary Care Provider [phone] Watson Balbuena MD Unavailable Pam Mathew ETHYLBENZENE CONVERTER HELPER Unavailable [phone] Marvin Gil MD Unavailable [phone] Dom Robles DO Unavailable [phone] Lisandro Barajas MD Unavailable [phone] Damian Ballard MD Unavailable [phone] Lina Mercado MD Primary Care Provider [phone] Encounter Details Date Type Department Care Team (Late st Contact Info) Description 06/15/2018 Ancillary Orders Virtual Department [address] [place] [address] Dom Robles DO [address] [address] Abnormal mammogram Social History Tobacco Use Types Packs/Day [...] 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 file documented as of this encounter Plan of Treatment Upcoming Encounters Date Type Department Care Team (Late st Contact Info) Description 10/02/2024 Procedure Pass [address] [address] 10/03/2025 7:30 AM EDT Appointment [address] [address] System, Provider Not In, PhD Partners [address] [address] documented as of this encounter Results * BI US BREAST LIMITED (LEFT) (06/15/2018 2:32 PM EST) Anatomical Region Laterality Modality Breast Left, Breast Bilateral Left Ul trasound 06/15/2018 2:10 PM EST Impressions 06/15/2018 2:32 PM EST The area of possible architectural distortion I believe is unchanged relative to multiple prior studies. No mass lesion of concern or significant finding is evident on mammography or ultrasonography. No findings of concern for malignancy are seen. The patient can return to routine mammography. The results were given to the patient at the time of the examination. BI-RADS CATEGORY: 1 - Negative. DENSITY: There are scattered fibroglandular densities. S/S: Questionable architectural distortion in the outer left breast on screening mammogram POS [id number] Narrative 06/15/2018 2:32 PM EST Full field digital mammography was obtained with computer-aided detection. There is scattered fibroglandular density evident in the breast. 2-D C view images obtained as well as tomosynthesis images in two projections of the left breast. True lateral and spot compression craniocaudad views are obtained in 2-D and 3-D acquisitions. Comparison with prior imaging from 06/14/2018 is made with older imaging dating back as far as 07/07/2011. also reviewed. The exam is obtained because of possible architectural distortion in the outer left breast on craniocaudad view. On the follow-up views obtained the appearance is unchanged but I believe is similar to that evident on multiple prior studies dating back at least to 2013. No progressive findings are evident. There are no associated calcifications or skin changes of concern noted. Subsequent ultrasound of the area of concern is obtained. In the outer portion of the left breast where the architectural distortion is evident, no findings of concern are identified on ultrasound. Procedure Note Jorge L Barrera MD - 06/15/2018 Full field digital mammography was obtained with computer-aided detection.There is scattered fibroglandular density evident in the breast. 2-D Cview images obtained as well as tomosynthesis images in two projections ofthe left breast. True lateral and spot compression craniocaudad views areobtained in 2-D and 3-D acquisitions. Comparison with prior imaging from 06/14/2018 is made with older imagingdating back as far as 07/07/2011. also reviewed. The exam is obtained because of possible architectural distortion in theouter left breast on craniocaudad view. On the follow-up views obtained the appearance is unchanged but I believeis similar to that evident on multiple prior studies dating back at leastto 2013. No progressive findings are evident. There are no associatedcalcifications or skin changes of concern noted. Subsequent ultrasound of the area of concern is obtained. In the outerportion of the left breast where the architectural distortion is evident,no findings of concern are identified on ultrasound. IMPRESSION: The area of possible architectural distortion I believe is unchangedrelative to multiple prior studies. No mass lesion of concern orsignificant finding is evident on mammography or ultrasonography. Nofindings of concern for malignancy are seen. The patient can return toroutine mammography. The results were given to the patient at the time of the examination. BI-RADS CATEGORY: 1 - Negative. DENSITY: There are scattered fibroglandular densities. S/S: Questionable architectural distortion in the outer left breast onscreening mammogram POS [id number] us Dom Robles DO [facility] [place] BREAST Final Result * BI MAMMOGRAM DIAGNOSTIC WITH TOMOSYNTHESIS WITH CAD (LEFT) (06/15/2018 2:06 PM EST) Anatomical Region Laterality Modality Breast Left Left Mammography 06/15/2018 2:10 PM EST Impressions 06/15/2018 2:32 PM EST The area of possible architectural distortion I believe is unchanged relative to multiple prior studies. No mass lesion of concern or significant finding is evident on mammography or ultrasonography. No findings of concern for malignancy are seen. The patient can return to routine mammography. The results were given to the patient at the time of the examination. BI-RADS CATEGORY: 1 - Negative. DENSITY: There are scattered fibroglandular densities. S/S: Questionable architectural distortion in the outer left breast on screening mammogram POS [id number] Narrative 06/15/2018 2:32 PM EST Full field digital mammography was obtained with computer-aided detection. There is scattered fibroglandular density evident in the breast. 2-D C view images obtained as well as tomosynthesis images in two projections of the left breast. True lateral and spot compression craniocaudad views are obtained in 2-D and 3-D acquisitions. Comparison with prior imaging from 06/14/2018 is made with older imaging dating back as far as 07/07/2011. also reviewed. The exam is obtained because of possible architectural distortion in the outer left breast on craniocaudad view. On the follow-up views obtained the appearance is unchanged but I believe is similar to that evident on multiple prior studies dating back at least to 2013. No progressive findings are evident. There are no associated calcifications or skin changes of concern noted. Subsequent ultrasound of the area of concern is obtained. In the outer portion of the left breast where the architectural distortion is evident, no findings of concern are identified on ultrasound. Dom Robles DO IMG MG EXAMS Final Result documented in this encounter Visit Diagnoses Diagnosis Abnormal mammogram Abnormal mammogram, unspecified Abnormal mammogram Abnormal mammogram, unspecified Abnormal mammogram Abnormal mammogram, unspecified documented in this encounter Care Teams Associate Program Manager Relationship Specialty Start Date End Date Dom Robles DO [address] [place] [address] PCP - General 01/07/14 04/29/19 Lina Mercado MD [address] [place] [address] [place] [phone] PCP - General Internal Medicine 04/30/19 Watson Balbuena MD [address] [address] [email or web address] Historical LMR Provider 04/29/17 Pam Mathew NP [address] [place] [address] Historical LMR Provider 04/29/172 2 Marvin Gil MD [address] [address] [email or web address] Historical LMR Provider 04/29/17 Dom Robles DO [address] [place] [address] Historical LMR Provider 04/29/17 Lisandro Barajas MD [address] [place] [address] Historical LMR Provider 04/29/172 2 Damian Ballard MD [address] [place] [address] Historical LMR Provider 04/29/172 2 documented as of this encounter Additional Source Comments The information contained in this document represents components of the legal health record. It is not the complete legal health record.[facility]
--- OUTSIDE RECORDS SUMMARY | 2025-05-02 08:08 | XMS_ITS | Clinical Summary ---
Author Organization [facility] Address [address] [place] [address] Phone Care Team Providers Care Pillow Filler Name Role Phone Watson Balbuena MD Unavailable Marvin Gil MD Unavailable [phone] Dom Robles DO Unavailable [phone] Po, Lina Prince MD Primary Care Provider [phone] Allergies No known active allergies Medications calcium carbonate (CALCIUM 600 ORAL) Take by mouth. Active cyanocobalamin, vitamin B-12, (VITAMIN B-12 ORAL) Take by mouth. Active vitamin A,C,E-iqlu-jejlix (OCUVITE PRESERVE) 2,148 mcg-113 mg-45 mg-17.4mg Tab Take 1 tablet by mouth daily. Active gabapentin (NEURONTIN) 100 MG capsule 10/08/2024 Active PROLIA 60 mg/mL Syrg subcutaneous syringe 01/03/2025 Active Active Problems Problem Noted Date Diagnosed Date Tick bite 10/28/2023 Dyspareunia 05/05/2020 Urinary incontinence 05/05/2020 Assessment & Plan (09/28/2023 8:18 AM EDT): This could be a form of stress incontinence. There does not appear to be any urge component. She was previously seen by Dr. Balbuena in the past who recommended pelvic floor PT and consideration of a sling. I recommend that she follow-up with him. Encounter for gynecological examination without abnormal finding 11/10/2017 Inversion of nipple 11/10/2017 Overview (11/21/2017): right Assessment & Plan (12/18/2018 6:15 PM EDT): The patient's right nipple appears to be more inverted than on past exams. Plan is for breast MRI. There has been no targetable lesion on mammograms and ultrasounds in the past. Assessment & Plan (06/19/2018 4:14 PM EST): The patient is status post a benign subareolar right nipple biopsy earlier this year and she has negative mammogram and ultrasound last week on the left. Her nipple had been outgoing for a short period of time following the biopsy but is still ingoing now, possibly from scar tissue. We talked about breast MRI. At this time she does not wish to have more imaging. She will follow up here in six months. If the inversion is progressing, she may consider MRI at that time. If not, she may return to routine screening. Assessment & Plan (12/19/2017 1:47 PM EDT): The patient is status post right breast subareolar biopsy which returned benign. I have informed her of these results. She understands that this does not explain why she has the nipple inversion and I will see her back in six months for follow up of this. Assessment & Plan (11/30/2017 10:57 AM EDT): The patient presents back for discussion regarding her nipple inversion following imaging which shows what appears to be changes in the skin of the nipple. I have offered biopsy. I had a conversation with the patient today with regard to breast surgery. The risks and benefits of any breast surgery including but not limited to infection, bleeding, scar, dimpling, alteration in breast texture and sensation, damage or loss of nipple, failure to identify a malignancy, failure for a good cosmetic result, as well as the potential need for further surgery, have been explained to the patient. The patient understands and wishes to proceed with right subareolar biopsy. Assessment & Plan (11/21/2017 11:25 AM EDT): The patient has right nipple inversion. Plan is for diagnostic mammogram and ultrasound and pending those results, MRI, possible subareolar biopsy. Assessment & Plan (11/10/2017 4:11 PM EDT): Though exam is benign and mammo was normal, I recommend seeing breast surgeon here for second opinion re this finding and frequency of office exams as this is a new finding Immunizations Immunization Administration Dates Next Due INFLUENZA, SPLIT VIRUS, TRIV ALENT W/ PRESERVATIVE IM 04/05/2021,05/16/2016,04/29/2015,2010 Influenza Quadrivalent MDCK Preservative Free IM 04/29/2021,05/09/2018,04/15/2017 Influenza Quadrivalent Prese rvative Free IM 04/11/2020 Influenza Quadrivalent w/ Preservative IM 04/09/2019 Zoster recombinant 03/29/2021 Family History Medical History Relation Comments Pancreatic cancer Father Lymphoma Half-Sister 1 Esophageal cancer Maternal Grandfather Breast cancer Maternal Grandmother Rheumatoid arthritis Sister 1 Parkinson's disease Sister 2 Relation Status Comments Brother Alive Father Half-Sister 1 Alive Half-Sister 2 Alive Maternal Grandfather Maternal Grandmother Mother Alive Paternal Grandfather Paternal Grandmother Sister 1 Alive Sister 2 Alive Social History Tobacco Use Types Packs/Day Years Used Date Smoking Tobacco: Never Smokeless Tobacco: Never Tobacco Cessation:Counseling Given: Not Answered Alcohol Use Standard Drinks/Week Comments Yes 2 [...] 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 Not on file Last Filed Vital Signs Vital Sign Reading Time Taken Comments Blood Pressure 105/69 01/10/2025 10:11 AM EDT Pulse 70 01/10/2025 10:11 AM EDT Temperature 36.6 C (97.8 F) 01/10/2025 10:11 AM EDT Respiratory Rate 16 01/10/2025 10:11 AM EDT Oxygen Saturation 99% 01/10/2025 10:11 AM EDT Inhaled Oxygen Concentration - - Weight 59 kg (130 lb) 01/10/2025 10:11 AM EDT Height 167.6 cm (5' 6 ) 01/10/2025 10:11 AM EDT Body Mass Index 20.98 01/10/2025 10:11 AM EDT Plan of Treatment Upcoming Encounters Date Type Department Care Team (Late st Contact Info) Description 10/02/2024 Procedure Pass [address] [address] 10/03/2025 7:30 AM EDT Appointment [address] [address] System, Provider Not In, [facility] [address] [address] Health Maintenance Due Date Last Done Comments DEPRESSION SCREENING 1971 HEPATITIS C SCREENING 1977 HIV ONE-TIME SCREENING (18-65 YEARS) 1977 COLOGUARD 2004 COLONOSCOPY 2004 COLORECTAL CANCER SCREENING 2004 FIT TEST 2004 FOBT 2004 SIGMOIDOSCOPY 2004 VIRTUAL COLONOSCOPY 2004 LIPID PANEL 07/12/2023 07/12/2018 OSTEOPOROSIS SCREENING INITIAL (ONE-TIME) 2024 INFLUENZA VACCINE (#1) 2025 , 06/09/2023, 04/01/2022, Additional history exists COVID-19 VACCINE ( season) 2025 04/01/2022, 05/26/2021, 09/05/2020, Additional history exists MAMMOGRAM 10/01/2026 10/01/2024, 08/10, 06/30/2022, Additional history exists Adult Td,Tdap Booster 10/02/2033 10/03/2023 RSV VACCINE (1 - 1-dose 75+ series) 2034 ZOSTER VACCINES Completed 08/18/2021, 03/29/2021 PNEUMOCOCCAL VACCINES (50+ years) Completed 10/08/2024 SMOKING STATUS SCREENING (Once After 26 Yrs) Completed 01/10/2025 HEPATITIS A VACCINES Aged Out No long er eligible based on patient's age to complete this topic HIB VACCINES Aged Out No longer eligi ble based on patient's age to complete this topic MENINGOCOCCAL VACCINES (ACWY) Aged Out No longer eligible based on patient's age to complete this topic MENINGOCOCCAL VACCINES (B) Aged Out N o longer eligible based on patient's age to complete this topic Medical Devices Not on file Procedures Procedure Name Priority Date/Time Associated Diagnosis Comments BI MAMMOGRAM SCREENING WITH TOMOSYNTHESIS WITH CAD (BILATERAL) Routine 10/01/2024 10:58 AM EDT Breast screening LIPID PANEL Routine 07/12/2018 10:57 AM EST Encounter for general adult medical examination with abnormal findings from Last 3 Months or Most Recently Relevant to Health Maintenance Results * BI MAMMOGRAM SCREENING WITH TOMOSYNTHESIS WITH CAD (BILATERAL) (10/01/2024 10:58 AM EDT) Anatomical Region Laterality Modality Breast Left, Breast Right, Breast Bilateral Bila teral Mammography 10/02/2024 8:23 AM EDT Impressions 10/02/2024 8:36 AM EDT No mammographic evidence of malignancy in either breast. Annual screening mammography is recommended. BI-RADS 2 BENIGN The patient will be notified of the results and recommendations. Narrative 10/02/2024 8:36 AM EDT BI MAMMOGRAM SCREENING WITH TOMOSYNTHESIS WITH CAD (BILATERAL) Additional patient information: Screening. COMPARISON: Comparison is made with relevant prior imaging. Breast composition: The breasts are heterogeneously dense, which may obscure small masses. FINDINGS: No abnormal masses, suspicious calcifications, or other significant findings are identified mammographically in either breast. Biopsy marker remains present in the anterior upper, slight outer right breast. Procedure Note Morales Burger MD - 10/02/2024 BI MAMMOGRAM SCREENING WITH TOMOSYNTHESIS WITH CAD (BILATERAL) Additional patient information: Screening. COMPARISON: Comparison is made with relevant prior imaging. Breast composition: The breasts are heterogeneously dense, which mayobscure small masses. FINDINGS: No abnormal masses, suspicious calcifications, or other significantfindings are identified mammographically in either breast. Biopsy markerremains present in the anterior upper, slight outer right breast. IMPRESSION: No mammographic evidence of malignancy in either breast. Annual screening mammography is recommended. BI-RADS 2 BENIGN The patient will be notified of the results and recommendations. Lina Mercado MD IMG MG EXAMS Final Result * (ABNORMAL) Lipid panel (07/12/2018 10:57 AM EST) HDL 70 mg/dL [facility] Comment: Interpretation <40 mg/dL: Low HDL cholesterol (major risk factor for CHD) Greater than or equal to 60 mg/dL: High HDL cholesterol ( negative risk factor for CHD) HDL - cholesterol is affected by a number of factors, e.g. smoking, excerise, hormones, sex and age. CHOLESTEROL 164 0 - 240 mg/dL [facility] TRIGLYCERIDES 52 30 - 160 mg/dL [facility] LDL 84 50 - 129 mg/dL [facility] Comment: LDL levels in terms of risk for coronary heart disease: <100 mg/dL: Optimal 100-129 mg/dL: Near or above optimal 130-159 mg/dL: Borderline high 160-189 mg/dL: High >190 mg/dL: Very High CARDIAC RISK RATIO 2.3(L) 3.3 - 4.4 C [facility] Blood 07/12/2018 10:5 7 AM EST 07/12/2018 11:01 AM EST Dom Robles DO LAB BLOOD ORDERABLES Final Resu lt [address] [address] from Last 3 Months or Most Recently Relevant to Health Maintenance [place] [address] [employer]ION MEDICARE SUPPLEMENT MEDICARE PART A & [place] [address] [address] EXTENSION MEDICARE SUPPLEMENT MEDICARE PART A & B [id number] EXTENSION MEDICARE [place]LE[place] [address] [address] EXTENSION MEDICARE SUPPLEMENT [facility] MEDICARE SUPPLEMENT MEDICARE PART A & B [facility] EXTENSION MEDICARE SUPPLEMENT MEDICARE PART A & B [facility] EXTENSION MEDICARE SUPPLEMENT MEDICARE PART A & B [facility] EXTENSION MEDICARE SUPPLEMENT MEDICARE PART A & B Advance Directives For more information, please contact: [phone] (9AM - 5PM Frieda/[facility], Monday-Monday) * Full Code (Presumed) (Latest Code Status on File) Date Activated Date Inactivated Comments 12/06/2017 9:01 AM 12/06/2017 1:03 PM Care Teams Pillow Filler Relationship Specialty Start Date End Date Lina Mercado MD [address] [place] [phone] PCP - General Internal Medicine 04/30/19 Watson Balbuena MD [address] [place] [address] Historical LMR Provider 04/29/17 Marvin Gil MD [address] [place] [address] Historical LMR Provider 04/29/17 Dom Robles DO [address] [place] [address] Historical LMR Provider 04/29/17 Additional Source Comments The information contained in this document represents components of the legal health record. It is not the complete legal health record.[facility]
--- OUTSIDE RECORDS SUMMARY | 2025-05-02 08:08 | XMS_ITS | Encounter Summary ---
Author Organization [facility] Address [address] [place] [address] Phone Care Team Providers Care Food Service Director Name Role Phone Dom Robles DO Primary Care Provider [phone] Watson Balbuena MD Unavailable Pam Mathew ACCOUNT INFORMATION CLERK Unavailable [phone] Marvin Gil MD Unavailable [phone] Dom Robles DO Unavailable [phone] Lisandro Barajas MD Unavailable [phone] Damian Ballard MD Unavailable [phone] Lina Mercado MD Primary Care Provider [phone] Encounter Details Date Type Department Care Team (Late Contact Info) Description 12/18/2018 Procedure Pass [facility], [address] [address] Social History Tobacco Use Types Packs/Day Years [...] 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 Not on file documented as of this encounter Plan of Treatment Upcoming Encounters Date Type Department Care Team (Late st Contact Info) Description 10/02/2024 Procedure Pass [address] [address] 10/03/2025 7:30 AM EDT Appointment [address] [address] System, Provider [place] In, [place] [address] documented as of this encounter Visit Diagnoses Not on filedocumented in this encounter Care Teams Food Service Director Relationship Specialty Start Date End Date Dom Robles DO [address] [place] [address] PCP - General 01/07/14 04/29/19 Lina Mercado MD [address] [place] [phone] PCP - General Internal Medicine 04/30/19 Watson Balbuena MD [address] [place] [address] [email or web address] Historical LMR Provider 04/29/17 Pam Mathew NP [address] [place] [address] Historical LMR Provider 04/29/17 2 Marvin Gil MD [address] [place] [address] Historical LMR Provider 04/29/17 Dom Robles DO [address] [place] [address] Historical LMR Provider 04/29/17 Lisandro Barajas MD [address] [place] [phone] Historical LMR Provider 04/29/17 2 Damian Ballard MD [address] [place] [address] Historical LMR Provider 04/29/17 2 documented as of this encounter Additional Source Comments The information contained in this document represents components of the legal health record. It is not the complete legal health record.[facility]
--- OUTSIDE RECORDS SUMMARY | 2025-05-02 08:09 | XMS_ITS | Encounter Summary ---
Author Organization [facility] Address [address] [place] [address] Phone Care Team Providers Care Nurse Sexual Assault Name Role Phone Dom Robles DO Primary Care Provider [phone] Watson Balbuena MD Unavailable Pam Mathew INSOLE RASPER Unavailable [phone] Marvin Gil MD Unavailable [phone] Dom Robles DO Unavailable [phone] Lisandro Barajas MD Unavailable [phone] Damian Ballard MD Unavailable [phone] Lina Mercado MD Primary Care Provider [phone] Encounter Details Date Type Department Care Team (Late st Contact Info) Description 07/06/2018 Transcribe Orders [facility] [address] [place] [address] Yesy Hassan [place] [address] [place] [address] Social History Tobacco Use Types Packs/Day Years [...] 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 Not on file documented as of this encounter Plan of Treatment Upcoming Encounters Date Type Department Care Team (Late st Contact Info) Description 10/02/2024 Procedure Pass [address] [address] 10/03/2025 7:30 AM EDT Appointment [address] [address] System, Provider Not In, [facility] [address] [address] documented as of this encounter Visit Diagnoses Not on filedocumented in this encounter Care Teams Nurse Sexual Assault Relationship Specialty Start Date End Date Dom Robles DO [address] [place] [address] PCP - General 01/07/14 04/29/19 Lina Mercado MD [address] [place] [phone] PCP - General Internal Medicine 04/30/19 Watson Balbuena MD [address] [place] [address] Historical LMR Provider 04/29/17 Pam Mathew NP [address] [place] [address] Historical LMR Provider 04/29/17 2 Marvin Gil MD [address] [place] [address] Historical LMR Provider 04/29/17 Dom Robles DO [address] [place] [address] Historical LMR Provider 04/29/17 Lisandro Barajas MD [address] [place] [phone] Historical LMR Provider 04/29/17 2 Damian Ballard MD [address] [place] [address] Historical LMR Provider 04/29/17 2 documented as of this encounter Additional Source Comments The information contained in this document represents components of the legal health record. It is not the complete legal health record.[facility]
--- OUTSIDE RECORDS SUMMARY | 2025-05-02 08:09 | XMS_ITS | Encounter Summary ---
Author Organization [facility] Address [address] [place] [address] Phone Care Team Providers Care Electrical Timing Device Calibrator Name Role Phone Dom Robles DO Primary Care Provider [phone] Watson Balbuena MD Unavailable Pam Mathew HULL DRAFTER Unavailable [phone] Marvin Gil MD Unavailable [phone] Dom Robles DO Unavailable [phone] Lisandro Barajas MD Unavailable [phone] Damian Ballard MD Unavailable [phone] Lina Mercado MD Primary Care Provider [phone] Encounter Details Date Type Department Care Team (Late st Contact Info) Description 07/06/2018 Transcribe Orders [facility] [address] [place] [address] Yesy Hassan [place] [address] [place] [address] Social History Tobacco Use Types [...] st Contact Info) Description 10/02/2024 Procedure Pass [address] [address] 10/03/2025 7:30 AM EDT Appointment [address] [address] System, Provider Not In, [facility] [address] [address] documented as of this encounter Visit Diagnoses Not on filedocumented in this encounter Care Teams Electrical Timing Device Calibrator Relationship Specialty Start Date End Date Dom Robles DO [address] [place] [address] PCP - General 01/07/14 04/29/19 Lina Mercado MD [address] [place] [phone] PCP - General Internal Medicine 04/30/19 Watson Balbuena MD [address] [place] [address] Historical LMR Provider 04/29/17 Pam Mathew NP [address] [place] [address] Historical LMR Provider 04/29/17 2 Marvin Gil MD [address] [place] [address] Historical LMR Provider 04/29/17 Dom Robles DO [address] [place] [address] Historical LMR Provider 04/29/17 Lisandro Barajas MD [address] [place] [phone] Historical LMR Provider 04/29/17 2 Damian Ballard MD [address] [place] [address] Historical LMR Provider 04/29/17 2 documented as of this encounter Additional Source Comments The information contained in this document represents components of the legal health record. It is not the complete legal health record.[facility]
--- OUTSIDE RECORDS SUMMARY | 2025-05-02 08:09 | XMS_ITS | Encounter Summary ---
Author Organization [facility] Address [address] [place] [address] Phone Care Team Providers Care Accreditation Manager Name Role Phone Watson Balbuena MD Unavailable Pam Mathew [employer] Unavailable [phone] Marvin Gil MD Unavailable Dom Robles DO Unavailable [phone] Lisandro Barajas MD Unavailable [phone] Damian Ballard MD Unavailable [phone] Lina Mercado MD Primary Care Provider [phone] Encounter Details Date Type Department Care Team (Late st Contact Info) Description 03/23/2020 Ancillary Orders Virtual Department [address] [place] [address] Lina Mercado MD [address] [place] [address] Breast cancer screening by mammogram Social History Tobacco Use Types Packs/Day [...] 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 Not on file documented as of this encounter Plan of Treatment Upcoming Encounters Date Type Department Care Team (Late st Contact Info) Description 10/02/2024 Procedure Pass [address] [address] 10/03/2025 7:30 AM EDT Appointment [address] [address] System, Provider Not In, [place] [address] documented as of this encounter Results * (ABNORMAL) BI MAMMOGRAM SCREENING WITH TOMOSYNTHESIS WITH CAD (BILATERAL) (06/23/2020 7:56 AM EST) Anatomical Region Laterality Modality Breast Left, Breast Right, Breast Bilateral Bila teral Mammography 06/23/2020 8:00 AM EST Impressions 06/23/2020 8:06 AM EST Recommend recalling the patient for a left breast asymmetry. Radiology department will attempt to recall the patient. Recall views: Spot compression left cc view. Left ML view. Left breast ultrasound if necessary. BI-RADS CATEGORY: 0 - Incomplete. Need additional imaging evaluation. DENSITY: There are scattered fibroglandular densities. LEFT RECOMMENDATION DUE DATE: 1 Month Left Additional Imaging RIGHT RECOMMENDATION DUE DATE: 12 Months Right Mammography Screening Narrative 06/23/2020 8:06 AM EST 60-year-old female with no current breast symptoms. Comparison made to previous on 06/17/2019 and as far back as 11/26/2013. Interpretation made in conjunction with computer-aided detection and tomosynthesis. There are scattered areas of fibroglandular density. Asymmetric density in the far posterior left breast on the cc view only along the posterior nipple line. Stable right breast biopsy marker and a few calcifications. There are no suspicious masses, areas of architectural distortion, or suspicious clusters of microcalcifications. Procedure Note Juraez Zendejas MD - 06/23/2020 60-year-old female with no current breast symptoms. Comparison made toprevious on 06/17/2019 and as far back as 11/26/2013. Interpretation madein conjunction with computer-aided detection and tomosynthesis. There are scattered areas of fibroglandular density. Asymmetric density inthe far posterior left breast on the cc view only along the posteriornipple line. Stable right breast biopsy marker and a few calcifications. There are no suspicious masses, areas of architectural distortion, orsuspicious clusters of microcalcifications. IMPRESSION: Recommend recalling the patient for a left breast asymmetry. Radiologydepartment will attempt to recall the patient. Recall views: Spot compression left cc view. Left ML view. Left breastultrasound if necessary. BI-RADS CATEGORY: 0 - Incomplete. Need additional imaging evaluation. DENSITY: There are scattered fibroglandular densities. LEFT RECOMMENDATION DUE DATE: 1 Month Left Additional Imaging RIGHT RECOMMENDATION DUE DATE: 12 Months Right Mammography Screening Lina Mercado MD IMG MG EXAMS Final Result documented in this encounter Visit Diagnoses Diagnosis Breast cancer screening by mammogram Breast cancer screening by mammogram documented in this encounter Care Teams Accreditation Manager Relationship Specialty Start Date End Date Lina Mercado MD [address] [place] [phone] PCP - General Internal Medicine 04/30/19 Watson Balbuena MD [address] [place] [address] Historical LMR Provider 04/29/17 Pam Mathew NP [address] [place] [address] Historical LMR Provider 04/29/17 2 Marvin Gil MD [address] [place] [address], [address] [address] Historical LMR Provider 04/29/17 Dom Robles DO [address] [place] [address] Historical LMR Provider 04/29/17 Lisandro Barajas MD [address] [place] [phone] Historical LMR Provider 04/29/17 2 Damian Ballard MD [address] [place] [address] Historical LMR Provider 04/29/17 2 documented as of this encounter Additional Source Comments The information contained in this document represents components of the legal health record. It is not the complete legal health record.[facility]
--- OUTSIDE RECORDS SUMMARY | 2025-05-02 08:10 | XMS_ITS | Encounter Summary ---
Author Organization [facility] Address [address] [email or web address] [facility] [address] [place] [address] Phone Care Team Providers Care Cistern Room Operator Name Role Phone Dom Robles DO Primary Care Provider [phone] Watson Balbuena MD Unavailable Pam Mathew HOGSHEAD INSPECTOR Unavailable [phone] Marvin Gil MD Unavailable [phone] Dom Robles DO Unavailable [phone] Lisandro Barajas MD Unavailable [phone] Damian Ballard MD Unavailable [phone] Lina Mercado MD Primary Care Provider Encounter Details Date Type Department Care Team (Late st Contact Info) Description 07/12/2018 Transcribe Orders [facility] [address] [place] [address] Dom Robles DO [address] [address] Encounter for general adult medical examination with abnormal findings (Primary Dx) Social History Tobacco Use Types [...] 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 file documented as of this encounter Plan of Treatment Upcoming Encounters Date Type Department Care Team (Late st Contact Info) Description 10/02/2024 Procedure Pass [address] [address] 10/03/2025 7:30 AM EDT Appointment [address] [address] System, Provider Not In, [facility] [address] [address] documented as of this encounter Results * (ABNORMAL) Lipid panel (07/12/2018 10:57 AM EST) HDL 70 mg/dL [facility] Comment: Interpretation <40 mg/dL: Low HDL cholesterol (major risk factor for CHD) Greater than or equal to 60 mg/dL: High HDL cholesterol ( negative risk factor for CHD) HDL - cholesterol is affected by a number of factors, e.g. smoking, excerise, hormones, sex and age. CHOLESTEROL 164 0 - 240 mg/dL [facility] TRIGLYCERIDES 52 30 - 160 mg/dL [facility] LDL 84 50 - 129 mg/dL [facility] Comment: LDL levels in terms of risk for coronary heart disease: <100 mg/dL: Optimal 100-129 mg/dL: Near or above optimal 130-159 mg/dL: Borderline high 160-189 mg/dL: High >190 mg/dL: Very High CARDIAC RISK RATIO 2.3(L) 3.3 - 4.4 C [facility] Blood 07/12/2018 10:5 7 AM EST 07/12/2018 11:01 AM EST Dom Robles DO LAB BLOOD ORDERABLES Final Resu lt [address] [address] * Glucose (07/12/2018 10:57 AM EST) GLUCOSE 79 70 - 99 mg/dL [facility] Blood 07/12/2018 10:5 7 AM EST 07/12/2018 11:01 AM EST us Dom Robles DO LAB BLOOD ORDERABLES Final Resu lt [facility] [address] [place] [address] documented in this encounter Visit Diagnoses Diagnosis Encounter for general adult medical examination with abnormal findings- Primary documented in this encounter Care Teams Cistern Room Operator Relationship Specialty Start Date End Date Dom Robles DO [address] [place] [address] PCP - General 01/07/14 04/29/19 Lina Mercado MD [address] [place] [phone] PCP - General Internal Medicine 04/30/19 Watson Balbuena MD [address] [address] Historical LMR Provider 04/29/17 Pam Mathew NP [address] [place] [address] Historical LMR Provider 04/29/17 2 Marvin Gil MD [address] [place] [address] Historical LMR Provider 04/29/17 Dom Robles DO [address] [place] [address] Historical LMR Provider 04/29/17 Lisandro Barajas MD [address] [place] [phone] Historical LMR Provider 04/29/17 2 Damian Ballard MD [address] [place] [address] Historical LMR Provider 04/29/17 2 documented as of this encounter Additional Source Comments The information contained in this document represents components of the legal health record. It is not the complete legal health record.[facility]
--- OUTSIDE RECORDS SUMMARY | 2025-05-02 08:10 | XMS_ITS | Encounter Summary ---
Author Organization [facility] Address [address] [facility] [address] [place] [address] Phone Care Team Providers Care Footwear Machinery Instructor Name Role Phone Dom Robles DO Primary Care Provider [phone] Watson Balbuena MD Unavailable Pam Mathew SMALL ANIMAL CARETAKER Unavailable [phone] Marvin Gil MD Unavailable [phone] Dom Robles DO Unavailable [phone] Lisandro Barajas MD Unavailable [phone] Damian Ballard MD Unavailable [phone] Lina Mercado MD Primary Care Provider [phone] Reason for Referral * Physical Therapy (Routine) - Closed Specialty Diagnoses / Procedures Referred By Carmen main Referred To Contact Physical Therapy Diagnoses Encounter for rehabilitation System, Provider Not In, PhD [phone] [place] [address] Phone: tel: Referral ID Status Reason Start Date Expiration Date Visits Re quested Visits Authorized [id number] Closed 07/16/2018 10/07/2018 16 16 Encounter Details Date Type Department Care Team (Latest Contact Info) Description 07/06/2018 Transcribe Orders [facility] [address] [place] [address] Yesy Hassan [place] [address] [place] [phone] Encounter for rehabilitation (Primary Dx) Social History [...] 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 on file documented as of this encounter Plan of Treatment Upcoming Encounters Date Type Department Care Team (Late st Contact Info) Description 10/02/2024 Procedure Pass [address] [address] 10/03/2025 7:30 AM EDT Appointment [address] [address] System, Provider [place] In, [place] [address] Scheduled Referrals Name Type Priority Associated Diagnoses Orde r Schedule Ambulatory referral to [facility] Physical Therapy Outpatient Referral Routine Encounter for rehabilitation Ordered: 07/06/2018 documented as of this encounter Visit Diagnoses Diagnosis Encounter for rehabilitation- Primary documented in this encounter Care Teams Footwear Machinery Instructor Relationship Specialty Start Date End Date Dom Robles DO [address] [place] [address] PCP - General 01/07/14 04/29/19 Lina Mercado MD [address] [place] [phone] PCP - General Internal Medicine 04/30/19 Watson Balbuena MD [address] [place] [address], [address] [place] [address] Historical LMR Provider 04/29/17 Pam Mathew NP [address] [place] [address] Historical LMR Provider 04/29/17 2 Marvin Gil MD [address] [facility] [address] [place] [address] Historical LMR Provider 04/29/17 Dom Robles DO [address] [place] [address] Historical LMR Provider 04/29/17 Lisandro Barajas MD [address] [place] [address] Historical LMR Provider 04/29/172 2 Damian Ballard MD [address] [place] [address] Historical LMR Provider 04/29/17 2 documented as of this encounter Additional Source Comments The information contained in this document represents components of the legal health record. It is not the complete legal health record.[facility]
--- OUTSIDE RECORDS SUMMARY | 2025-05-02 08:10 | XMS_ITS | Encounter Summary ---
Author Organization [facility] Address [address] [place] [address] Phone Care Team Providers Care Machine Brusher Name Role Phone Watson Balbuena MD Unavailable Pam Mathew SENIOR SALES EXECUTIVE Unavailable [phone] Marvin Gil MD Unavailable [phone] Dom Robles DO Unavailable [phone] Lisandro Barajas MD Unavailable [phone] Damian Ballard MD Unavailable [phone] Lina Mercado MD Primary Care Provider [phone] Encounter Details Date Type Department Care Team (Late st Contact Info) Description 03/23/[address] [address] Social History Tobacco Use Types Packs/Day Years [...] 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 file documented as of this encounter Plan of Treatment Upcoming Encounters Date Type Department Care Team (Late st Contact Info) Description 10/02/2024 Procedure Pass [address] [address] 10/03/2025 7:30 AM EDT Appointment [address] [address] System, Provider Not In, [facility] [address] [address] documented as of this encounter Visit Diagnoses Not on filedocumented in this encounter Care Teams Machine Brusher Relationship Specialty Start Date End Date Lina Mercado MD [address] [place] [phone] PCP - General Internal Medicine 04/30/19 Watson Balbuena MD [address] [address] Historical LMR Provider 04/29/17 Pam Mathew NP 30 [place] [address] Historical LMR Provider 04/29/17 2 Marvin Gil MD [address] [place] [address] Historical LMR Provider 04/29/17 Dom Robles DO [address] [place] [address] Historical LMR Provider 04/29/17 Lisandro Barajas MD [address] [place] [phone] Historical LMR Provider 04/29/17 2 Damian Ballard MD [address] [place] [address] Historical LMR Provider 04/29/17 2 documented as of this encounter Additional Source Comments The information contained in this document represents components of the legal health record. It is not the complete legal health record.[facility]
--- OUTSIDE RECORDS SUMMARY | 2025-05-02 08:11 | XMS_ITS | Encounter Summary ---
Author Organization [facility] Address [address] [place] [address] Phone Care Team Providers Care Credit Risk Manager Name Role Phone Watson Balbuena MD Unavailable Pam Mathew SEAFOOD PACKER Unavailable [phone] Marvin Gil MD Unavailable [phone] Dom Robles DO Unavailable [phone] Lisandro Barajas MD Unavailable [phone] Damian Ballard MD Unavailable [phone] Lina Mercado MD Primary Care Provider [phone] Encounter Details Date Type Department Care Team (Late st Contact Info) Description 06/23/2020 Ancillary Orders 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 file documented as of this encounter Plan of Treatment Upcoming Encounters Date Type Department Care Team (Late st Contact Info) Description 10/02/2024 Procedure Pass [address] [address] 10/03/2025 7:30 AM EDT Appointment [address] [address] System, Provider [place] In, [place] [address] documented as of this encounter Visit Diagnoses Diagnosis Abnormal mammogram Abnormal mammogram, unspecified documented in this encounter Care Teams Credit Risk Manager Relationship Specialty Start Date End Date Lina Mercado MD [address] [place] [phone] PCP - General Internal Medicine 04/30/19 Watson Balbuena MD [address] [place] [address] Historical LMR Provider 04/29/17 Pam Mathew NP [address] [place] [address] Historical LMR Provider 04/29/17 2 Marvin Gil MD [address] [place] [address] Historical LMR Provider 04/29/17 Dom Robles DO [address] [place] [address] Historical LMR Provider 04/29/17 Lisandro Barajas MD [address] [place] [phone] Historical LMR Provider 04/29/17 2 Damian Ballard MD [address] [place] [address] Historical LMR Provider 04/29/17 2 documented as of this encounter Additional Source Comments The information contained in this document represents components of the legal health record. It is not the complete legal health record.[facility]
--- OUTSIDE RECORDS SUMMARY | 2025-05-02 08:12 | XMS_ITS | Encounter Summary ---
Author Organization [facility] Address [address] [place] [address] Phone Care Team Providers Care Furniture Painter Name Role Phone Watson Balbuena MD Unavailable Pam Mathew PUBLIC INFORMATION COORDINATOR Unavailable [phone] Marvin Gil MD Unavailable [phone] Dom Robles DO Unavailable [phone] Lisandro Barajas MD Unavailable [phone] Damian Ballard MD Unavailable [phone] Lina Mercado MD Primary Care Provider [phone] Encounter Details Date Type Department Care Team (Late st Contact Info) Description 06/23/2020 Ancillary Orders [facility] Internal Medicine [address] [place] [address] Leonor Garcia, PUBLIC INFORMATION COORDINATOR [address] [address] [email or web address] Abnormal mammogram Social History [...] 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 Annual mammographic screening recommended. The results were given to the patient by the technologist at the time of the examination. BI-RADS CATEGORY: 2 - Benign finding. DENSITY: There are scattered fibroglandular densities. Narrative 07/15/2020 2:54 PM EST HISTORY: Abnormal left screening mammogram. EXAM: Left diagnostic mammogram. COMPARISON: Previous left screening mammograms from 11/26/2013 to 06/23/2020 FINDINGS: No persisting asymmetry or evidence of an underlying mass in the posterior slight inner left breast on the additional diagnostic views. The finding on 06/23/2020 is consistent with superimposed fibroglandular tissue. Procedure Note Morales Burger MD - 07/15/2020 HISTORY: Abnormal left screening mammogram. EXAM: Left diagnostic mammogram. COMPARISON: Previous left screening mammograms from 11/26/2013 to06/23/2020 FINDINGS: No persisting asymmetry or evidence of an underlying mass in the posteriorslight inner left breast on the additional diagnostic views. The findingon 06/23/2020 is consistent with superimposed fibroglandular tissue. IMPRESSION: No findings suspicious for malignancy. Annual mammographic screeningrecommended. The results were given to the patient by the technologist at the time ofthe examination. BI-RADS CATEGORY: 2 - Benign finding. DENSITY: There are scattered fibroglandular densities. Leonor Garcia PUBLIC INFORMATION COORDINATOR IMG MG EXAMS Final Result documented in this encounter Visit Diagnoses Diagnosis Abnormal mammogram Abnormal mammogram, unspecified Abnormal mammogram Abnormal mammogram, unspecified documented in this encounter Care Teams Furniture Painter Relationship Specialty Start Date End Date Lina Mercado MD [address] [phone] PCP - General Internal Medicine 04/30/19 Watson Balbuena MD [address] [address] Historical LMR Provider 04/29/17 Pam Mathew NP 30 [place] [address] Historical LMR Provider 04/29/17 2 Marvin Gil MD [address] [address] Historical LMR Provider 04/29/17 Dom Robles DO [address] [place] [address] Historical LMR Provider 04/29/17 Lisandro Barajas MD [address] [place] [phone] Historical LMR Provider 04/29/17 2 Damian Ballard MD [address] [place] [address] Historical LMR Provider 04/29/17 2 documented as of this encounter Additional Source Comments The information contained in this document represents components of the legal health record. It is not the complete legal health record.[facility]
== END 2025-05-02 08:00 | disposition home or self-care (01) ==
LOC: HO.MAMMO 07:59
PROVIDERS: PCP Internal Medicine; Visit Provider Internal Medicine
DX: M81.0 Age-related osteoporosis without current pathological fracture (principal)
CPT/HCPCS: 77080

== ENCOUNTER → 2025-05-02 08:15 | Outpatient (BNV) | payer MEDICARE, OTHER, SELFPAY | PROVIDERS: PCP Internal Medicine; Visit Provider Radiology Diagnostic Radiology | DX: E28.39 Other primary ovarian failure (principal) | CPT/HCPCS: 77080 ==

== ENCOUNTER 2025-06-02 12:37 | Outpatient (REF) | payer MEDICARE, OTHER, SELFPAY ==
[2025-06-02 14:04] LABS: Appearance Urine Clear; Glucose Urine UA Negative (Negative); PH 6.5 (5.0-9.0); Specific Gravity - Urine <= 1.005 (1.005-1.025)
== END 2025-06-02 12:38 | disposition home or self-care (01) ==
LOC: HO.LAB 12:37
PROVIDERS: PCP Internal Medicine; Visit Provider Nurse Practitioner Family
DX: N39.0 Urinary tract infection, site not specified (principal)
CPT/HCPCS: 81001; 87086